=== PATIENT | male | born 1950 | race Caucasian/White ===

== ENCOUNTER 2017-11-01 22:37 | Inpatient (IN) | payer MEDICARE ==
[~2017-11-01] VITALS: Ht 175.3 cm; Wt 108.0 kg
[~2017-11-01 22:37] MED LIST: AMBIEN 5 MG TABL5 M1 PO; ATIVAN1 MG PO; HYDROCHLOROTH12.5 M1 PO; LEVAQUIN 250 M250 MG PO; PERCOCET PO; PREDNISONE 10 M10 MG PO; WELLBUTRIN 75 M75 M1 PO
[2017-11-01 22:39] VITALS: BP 174/100
[2017-11-01] MEDS ORDERED: ASPIR 8181 M1 PO (22:46)
[2017-11-01 22:58] LABS: ABSOLUTE BASOPHILS 0.1 thou/uL (0.0-0.2); ABSOLUTE EOSINOPHILS 0.2 thou/uL (0.0-0.7); ABSOLUTE LYMPHOCYTES 2.6 thou/uL (0.8-5.3); ABSOLUTE MONOCYTES 0.6 thou/uL (0.0-1.2); ABSOLUTE NEUTROPHILS 5.2 thou/uL (1.6-8.1); BASOPHILS 0.8 %; EOSINOPHILS 2.4 %; HEMOGLOBIN 10.5 gm/dL (14.0-18.0); LYMPHOCYTES 30.1 %; MCH 32.2 pg (26.0-34.0); MCV 94.8 fL (80.0-100.0); MONOCYTES 7.2 %; MPV 7.6 fl. (7.2-11.1); NUCLEATED RBCS 0 /100WBC; PLATELET COUNT* 257 thou/uL (150-400); POLYS 59.5 %; RBC 3.27 mil/uL (4.50-6.00); RDW-CV 12.5 % (10.5-14.5); WBC 8.7 thou/uL (4.0-11.0)
[2017-11-01 23:19] LABS: ALBUMIN 3.9 g/dL (3.4-5.0); ALKALINE PHOSPHATASE 111 U/L (46-116); ANION GAP 8 mmol/L (7-16); BUN 36 mg/dL (7-18); CALCIUM 8.7 mg/dL (8.5-10.1); CHLORIDE 99 mmol/L (98-107); CO2 29 mmol/L (21-32); CREATININE 2.7 mg/dL (0.6-1.3); GLUCOSE 121 mg/dL (70-99); LIPASE 376 U/L (73-393); NT-PRO BRAIN NAT PEPTIDE 700 pg/mL (<300); POTASSIUM 3.8 mmol/L (3.5-5.1); SGOT 36 U/L (15-37); SGPT 36 U/L (30-65); SODIUM 136 mmol/L (136-145); TOTAL BILIRUBIN 0.2 mg/dL (<0.1-1.0); TOTAL PROTEIN 7.4 g/dL (6.4-8.2); TROPONIN-I LEVEL <0.06 ng/mL (<0.06)
[2017-11-02 00:53] VITALS: BP 135/70
[2017-11-02 00:57] VITALS: BP 162/68
[2017-11-02 04:00] VITALS: BP 145/74
--- NOTE | 2017-11-02 06:45 | NUR ---
Pt arrived from ED at 0055. States CP resolved while in ED, now experiencing lower back pain which is chronic. VSS. On bed rest with BRP. Will continue to monitor.
[2017-11-02 09:00] VITALS: BP 170/73
[2017-11-02 12:02] VITALS: BP 145/74
--- NOTE | 2017-11-02 13:14 | EKG ---
[place] [address] ELECTROCARDIOGRAM REPORT Name: SALINA TRAN Room: [address] ADM IN .R.#: [id number] Admission: 11/01/17 Attend Phys: Ry Medina Discharge: Date of : 52 Report #: [id number] THIS REPORT FOR: //name// [facility] ED Test Date: 2017-11-01 Test Time: 22:40:10 Pat Name: SALINA JEANFORD Department: Room: [facility] Gender: M Lotus Notes Administrator: HAMZAH : 1950 Requested By: Casper Sesay Order Number: [id number] MD: Gomez Borrego Measurements Intervals [place] Rate: 87 P: 54 NC: 172 QRS: 25 QRSD: 92 T: 34 QT: 377 QTc: 454 Interpretive Statements Sinus rhythm Baseline wander in lead(s) V4 No previous ECG available for comparison Electronically Signed On 11-02-2017 13:14:38 MECHANICAL ENERGY ENGINEER by Gomez Borrego [email or web address] <ELECTRONICALLY SIGNED> By: Gomez Borrego MD, [facility] 11/02/17 1314 2240 39 Gomez Borrego MD, FACC /EPI
[2017-11-02] MEDS ORDERED: AMBIEN 5 MG TABL5 M1 PO (13:22)
--- NOTE | 2017-11-02 13:47 | NUR ---
CM ASSESSMENT: Pt is A&O. Resides at home alone. Independent with ADLs, continues to cook, clean and drive. No DME. Hx of [facility]. No hx of SNF. Supportive family that is involved in POC. Per nurse, Pt needs a stress test, pending cardiology consult. Anticipate dc soon. No needs anticipated.
--- NOTE | 2017-11-02 18:00 | NUR ---
HOME MEDICATION LIST UPDATED. DR CALLED WITH CHANGES. WELLBUTRIN CHANGED TO CORRECT DOSAGE, AMLODIPINE ORDERED. PT REPORTS HE TAKES 2 TABS OF OXY TO HELP WITH PAIN. OXYCODONE ADMININSTERED. ATIVAN ADMININSTERED PER EMAR. PT UP AD YANET. PT INSTRUCTED TO TELL RN ABOUT CHEST PAIN. PT DENIED CHEST PAIN. DURING ROUNDING PT REPORTED HE HAD HAD CHEST PAIN, AND REPORTS "I THINK IT WAS INDIGESTIONS". PT AGAIN INSTRUCTED TO NOTIFY RN OF CHEST PAIN. PT DID NOT REPORT ANY MORE CHEST PAIN THIS SHIFT. RECEIVED CALL FROM CARDIOLOGY THAT PT TO BE NPO AFTER MIDNIGHT FOR CARDIAC CATHETERIZATION. PT INSTRUCTED OF PLAN AND THAT DR WOULD DISCUSS PROCEDURE IN AM ( THIS IS WHAT CARDIOLOGY STATED).
[2017-11-02] MEDS ORDERED: AMLODIPINE BESY10 MG PO (18:08)
[2017-11-02] MEDS ORDERED: PRAVACHOL40 MG PO (18:09)
[2017-11-02 20:00] VITALS: BP 146/74
[2017-11-03] VITALS (17 sets, daily range): BP systolic 128–167; BP diastolic 55–87
--- NOTE | 2017-11-03 05:00 | NUR ---
ASSUMED CARE OF PATIENT AT 1900 THE PATIENT REMAINS SR ON THE MONITOR O2 SAT MAINTAINED ON 2L NC CONTINUES TO BE UP AD YANET THE ROUTINE REGIMEN CONTINUES TO BE EFFECTIVE FOR SX MANAGEMENT SAFETY INTERVENTIONS CONTINUE BED LOWERED WHEELS LOCKED CALL LIGHT IN REACH SIDE RAILS UP REPORT TO BE GIVEN TO ONCDELORES MLCEOD
[2017-11-03 05:58] LABS: ABSOLUTE EOSINOPHILS 0.2 thou/uL (0.0-0.7); ABSOLUTE LYMPHOCYTES 1.5 thou/uL (0.8-5.3); ABSOLUTE MONOCYTES 0.5 thou/uL (0.0-1.2); ABSOLUTE NEUTROPHILS 2.7 thou/uL (1.6-8.1); BASOPHILS 0.9 %; EOSINOPHILS 3.2 %; HEMATOCRIT 30.3 % (42.0-52.0); HEMOGLOBIN 10.4 gm/dL (14.0-18.0); LYMPHOCYTES 30.6 %; MCH 32.3 pg (26.0-34.0); MCHC 34.3 g/dL (28.0-37.0); MCV 94.1 fL (80.0-100.0); MONOCYTES 10.8 %; NUCLEATED RBCS 0 /100WBC; PLATELET COUNT* 231 thou/uL (150-400); POLYS 54.5 %; RBC 3.22 mil/uL (4.50-6.00); RDW-CV 12.5 % (10.5-14.5); WBC 4.9 thou/uL (4.0-11.0)
[2017-11-03 06:16] LABS: CALCIUM 9.3 mg/dL (8.5-10.1); CREATININE 2.3 mg/dL (0.6-1.3); POTASSIUM 5.1 mmol/L (3.5-5.1)
--- NOTE | 2017-11-03 08:50 | NUR ---
RECEIVED REPORT. ASSUMED CARE OF PT AT 0730. PT A&O X4, ANXIOUS ABOUT CATH PROCEDURE SCHEDULED FOR THIS AM. REASSURANCE GIVEN. VVS. O2 SAT 96% ON ROOM AIR. STRAINER MILL OPERATOR IN PLACE TRACING SR. PT INFORMED OF PLAN OF CARE. PT COMMUNICATES UNDERSTANDING. PT REPORTS THAT BACK PAIN IS "FEELING BETTER" SINCE ADMINISTRATION OF PAIN MEDICATION BY NIGHT NURSE AT SHIFT [facility]. PT NPO FOR CATH. PT UP WITH STANDBY ASSITANCE TO THE BATHROOM - VOIDING WITHOUT ISSUES. FAMILY AT BEDSIDE. LOW FALL RISK PRECAUTIONS ARE IN PLACE. CALL LIGHT IS WITHIN REACH. WILL CONTINUE TO MONITOR.
--- NOTE | 2017-11-03 10:35 | CARD ---
[address] [address] CARDIAC CATH REPORT Name: SALINA TRAN Room: [address] IN .R.#: [id number] Admission: 11/01/17 Attend Phys: Ry Medina Discharge: Date of : 52 Report #: [id number] THIS REPORT FOR: //name// APPROVED REPORT Patient Details Patient Status: In-Patient Room #: 225 The patient is a 67 year-old male Event Personnel Gomez Borrego Dump Operator, Simona Lester Production Machinist, Jillian Lim Monitor, Ady Nevarez (R) Scrub Procedures Performed cardiac cathArt Access - R radial artery , Left Heart Catheterization, Selective Right and Left Coronary Angiography Indication Cardiomyopathy, Chest pain Risk Factors Arterial Hypertension, Hypercholesterolemia Admission/Lab Medications/Medications given during procedure Heparin Unfract. Procedure Narrative The patient was brought electively to the Cardiac Catheterization Laboratory and was prepped and draped in a sterile manner. The right wrist was infiltrated with 1% Lidocaine subcutaneous anesthesia. A Slender Glidesheath 6fr sheath was inserted into the right radial artery. Coronary angiography was performed using coronary diagnostic catheters. The right coronary system was accessed and visualized with a Diagnostic catheter. The left coronary system was accessed and visualized with a Diagnostic catheter. The left ventricle was accessed and visualized with a Diagnostic catheter. Left ventricular/Aortic Valve gradient assessed via catheter pullback. Left ventriculogram was performed in PEREZ projection. Hemostasis was obtained with manual pressure following sheath removal without any complications. There was no hematoma. Intraoperative Conscious Sedation Sedation start time: 09:28 Case end Time: 09:50 [place] [address] CARDIAC CATH REPORT Name: SALINA TRAN Room: [address] IN [facility]#: [id number] Admission: 11/01/17 Attend Phys: Ry Medina Discharge: Date of : 52 Report #: [id number] Fentanyl 25 mcg Fluoro Time: 2.6 minutes Dose: DAP 67565 cGycm2 736.79 mGy Contrast Type and Amount: Visipaque 100 ml Coronary Angiography The patient's coronary anatomy is right dominant. [facility] Artery Percent Stenosis Left Main: 0 % Prox LAD: 0 % Mid/Distal LAD: 0 % Circumflex: 40 % RCA: 50 % Ramus: % Left Ventriculography The left ventricle is mildly dilated in size with contractility. The left ventricular ejection fraction is estimated to be 40-45%. There is no mitral insufficiency. Hemodynamics The aortic pressure is 114/65 mmHg with a mean of mmHg. The left ventricular pressure is 102/0 mmHg with a mean of mmHg. The left ventricular end diastolic pressure is 3 mmHg. There was no gradient across the aortic valve upon pullback. Pullback from the left ventricle to the aorta revealed no gradient across the aortic valve. Conclusion 1. mild cad 2. mild cardiomyopathy Recommendations Aggressive Medical Therapy <ELECTRONICALLY SIGNED> By: Gomez Borrego MD, FACC 11/03/17 1035 Dalottie Borrego MD, [facility] /INF
--- NOTE | 2017-11-03 19:59 | NUR ---
VSS. O2 SAT >90% ON ROOM AIR. PT REMAINS A&O X4. [facility] RIGHT RADIAL SITE FREE FROM BLEEDING. VASC BAND REMOVED PER PROTOCOL. VITALS POST CATH COMPLETED CHARTED. PT INSTRUCTED TO KEEP RIGHT ARM ELEVATED. IV PATENT AND INFUSING FLUIDS. PT REPORTED BACK PAIN THIS AFTERNOON AND RECEIVED PAIN MEDICATION WITH RELIEF. PT EATING AND DRINKING WITHOUT ISSUE. PT UP AD YANET TO THE BATHROOM. FAMILY WAS HERE THIS AM AND HAS SINCE GONE HOME. PT RESTING IN BED. NEPHROLOGY CONSULTED. LOW FALL RISK PRECAUTIONS IN PLACE. CALL LIGHT IS WITHIN REACH. HOURLY ROUNDING PERFORMED.
[2017-11-04] VITALS: BP 131/69
--- NOTE | 2017-11-04 03:05 | NUR ---
PT ALERT ORIENTED. UP AD YNAET. DENIES CP OR DISCOMFORT. TELEMETRY SHOWS SR. R RADIAL DRSG D/I. NS AT 200MLS/HR DONE APPROX 2200. LORAZEPAM GIVEN HS WITH HS MEDS. PAIN PILLS AND AMBIEN GIVEN SHORTLY AFTER 2300 PER PT REQUEST. PT RESTING QUIENTLY THIS SHIFT. WILL CONTINUE TO MONITOR.
[2017-11-04 04:00] VITALS: BP 148/59
[2017-11-04 05:44] LABS: CALCIUM 8.7 mg/dL (8.5-10.1); CREATININE 2.4 mg/dL (0.6-1.3); POTASSIUM 4.9 mmol/L (3.5-5.1)
[2017-11-04 08:00] VITALS: BP 167/75
--- NOTE | 2017-11-04 10:21 | CON ---
[address] [address] CONSULTATION Name: SALINA TRAN Room: [address] IN M.R.#: [id number] Admission: 11/01/17 Attend Phys: Ry Medina Discharge: Date of : 52 Report #: [id number] THIS REPORT FOR: //name// CC: Will England DATE OF SERVICE: 11/02/2017 HISTORY OF PRESENT ILLNESS: The patient is a 67-year-old single white male, who I was asked to see in the hospital after he complained of chest pain. The patient has no previous history of heart disease. He was last admitted here to [facility] in 11/2016 with respiratory illness. The patient stays fairly active. He was doing well until last night. He was at home about 2:00 at night, when felt an ache in his chest, some discomfort in his left upper arm, felt short of breath. Denied diaphoresis or nausea. He drove himself to the Emergency Room last night. He was given nitroglycerin, pain resolved. I was asked to see him for further evaluation and treatment. He denied the pain related to food. No recent trauma to his chest. Denied any rash. He denied associated nausea or diaphoresis. He denies exertional dyspnea, palpitations, syncope or peripheral edema. PAST MEDICAL HISTORY: Otherwise significant for ankle surgery, knee surgery, back surgery, hand surgery, hypertension, and hyperlipidemia. MEDICATIONS: Include Pravachol, Wellbutrin, amlodipine, and oxycodone. ALLERGIES: HE HAS INTOLERANCE TO CODEINE AND PENICILLIN. FAMILY HISTORY: His sister has a defibrillator. SOCIAL HISTORY: He is , lives by himself here in [place]. 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 Quit smoking years ago. No alcohol use. REVIEW OF SYSTEMS: He has had no history of stroke, asthma. He has had a peptic ulcer in the past. No liver disease. He has chronic kidney disease. No cancer. He does have a history of anxiety disorder and is followed by psychiatrist. No chronic skin condition. PHYSICAL EXAMINATION: GENERAL: Revealed an elderly male, who appeared in no distress. VITAL SIGNS: He had a blood pressure of 160/70, pulse 70, he is afebrile. HEENT: He is anicteric. Conjunctivae pink. Mucous membranes moist. NECK: Veins do not appear distended. Right carotid bruit was heard. CHEST: Clear to auscultation. CARDIOVASCULAR: Regular rate and rhythm. No significant murmur. ABDOMEN: Soft, [place] [address] CONSULTATION Name: SALINA TRAN Room: [address] IN M.R.#: [id number] Admission: 11/01/17 Attend Phys: Ry Medina Discharge: Date of : 52 Report #: [id number] EXTREMITIES: Had no edema. Posterior tibial pulse 2+ bilaterally. SKIN: Warm, dry. NEUROLOGIC: Nonfocal. DIAGNOSTIC DATA: His ECG on admission last night showed a sinus rhythm. There was no ST or T-wave change. His workup in the Emergency Room last night, he had a portable chest x-ray that showed normal heart size. Clear lung almanzar. CT scan of the head a year ago after a fall showed no acute abnormality. LABORATORY DATA: Sodium 136, creatinine 2.7. Liver function studies were normal. Troponins are 0.06. White blood cell count 8.7, hemoglobin 10.5. IMPRESSION AND RECOMMENDATIONS: 1. Chest pain. The patient has risk factors for coronary artery disease. Pain has some features of angina. No ECG changes. Recommend stress echocardiogram. 2. Hypertension. The patient has been on calcium alberto. 3. Hyperlipidemia. The patient is on a statin drug. 4. Chronic kidney disease. 5. Anxiety disorder. <ELECTRONICALLY SIGNED> By: Gomez Borrego MD, FACC 11/04/17 1021 1409 [id number] Borrego MD, FACC /nt
[2017-11-04 12:09] VITALS: BP 152/72
--- NOTE | 2017-11-04 14:00 | NUR ---
RECEIVED REPORT. ASSUMED CARE OF PT AT 0730. PT A&O X4. VSS. O2 SAT 98% ON ROOM AIR. 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 AM ASSESSMENT AND VITALS COMPLETED CHARTED. PT ANXIOUS AND READY TO GO HOME, BUT VERY PLEASANT. IV SALINE LOCKED. PT REPORTS LOWER BACK PAIN AND RECEIVED PO PAIN MEDICATION WITH RELIEF. PT EATING AND DRINKING WITHOUT ISSUE. PT UP AD YANET IN ROOM. PT SHOWERED AFTER LUNCH. PT COMPLETED RENAL U/S. PT SPOKE WITH FAMILY ON CELL PHONE THIS AM. PT INFORMED OF PLAN OF CARE. PT COMMUNICATES UNDERSTANDING. RIGHT RADIAL CATH SITE BANDAGE CAME OFF IN THE NIGHT; SITE IS CLOSED, WITH NO OOZING; NON TENDER. PT AWARE OF LIFTING RESTRICTIONS. LOW FALL RISK PRECAUTIONS IN PLACE. CALL LIGHT IS WITHIN REACH. WILL CONTINUE TO MONITOR.
--- NOTE | 2017-11-04 16:41 | NUR ---
PATIENT TRANSFERRED FROM . REPORTS BACK PAIN. PAIN MEDICATION ADMINISTERED. BP ELEVETAED AT 182/67. WILL REASSESS AFTER PATIENT SETTLED. DINNER PROVIDED. UP AD YANET. DENIES FURTHER CONCERNS.
[2017-11-04 17:53] VITALS: BP 162/74
[2017-11-04 21:05] VITALS: BP 141/68
[2017-11-05 04:00] VITALS: BP 132/57
[2017-11-05 05:09] LABS: CALCIUM 8.9 mg/dL (8.5-10.1); CREATININE 2.4 mg/dL (0.6-1.3); POTASSIUM 4.5 mmol/L (3.5-5.1)
--- NOTE | 2017-11-05 07:45 | NUR ---
PATIENT ALERT AND ORIENTED. VITALS STABLE. RA. PEROCET GIVEN FOR CHRONIC BACK PAIN X 1. UP INDEPENDENTLY. DENIES PAIN. HOURLY ROUNDS. NURSING WILL CONTINUE TO MONITOR.
[2017-11-05 08:15] VITALS: BP 135/61
[2017-11-05] MEDS ORDERED: FLOMAX0.4 MG PO (08:29)
[2017-11-05] MEDS ORDERED: CARVEDILOL3.125 MG PO (08:29)
[2017-11-05 13:08] LABS: IgA 142 mg/dL (61-437); IgG 541 mg/dL (700-1600); IgM 27 mg/dL (20-172)
[2017-11-05 13:54] VITALS: BP 147/86
[2017-11-05 13:58] VITALS: BP 147/86
--- NOTE | 2017-11-05 14:34 | NUR ---
PATIENT LEFT UNIT AT 1430. ALERT AND ORIENTED X4. UP AD YANET IN ROOM. IV DC'D. NO PAIN MEDICATION RECIEVED THIS SHIFT. DENIES NAUSEA. ALL PERSONAL ITEMS LEFT WITH PATIENT. DISCHARGE INSTRUCTIONS SENT WITH PATIENT. VSS ON ROOM AIR. HOURLY ROUNDS HAVE BEEN MAINTAINED THROUGOUT SHIFT. LEFT VIA CAR.
[2017-11-05 14:38] VITALS: BP 147/86
--- NOTE | 2017-11-06 14:19 | EXE ---
[place] [address] STRESS ECHOCARDIOGRAM Name: SALINA TRAN Room: [address] IN .R#: [id number] Admission: 11/01/17 Attend Phys: Ankita England Discharge: 11/05/17 Date of : 52 Date of Service: 11/06/17 141 Report #: [id number] THIS REPORT FOR: //name// ADDENDUM APPROVED REPORT Patient Location: Room #: Stress Nurse: Stress test not performed ,as this patient has new left ventricular dysfunction noted on limited echo testing prior to stress test. Conclusion 1. Findings compatible with ischemic cardiomyopathy EF 35-40 2. inferior hypo 3.moderate TR <ELECTRONICALLY SIGNED> By: Tip Cleaning MD, FACC 11/06/171418 18 18 Tip Cleaning MD, FACC /INF
[2017-11-06 15:10] LABS: KAPPA FREE LIGHT CHAINS 40.5 mg/L (3.3-19.4); LAMBDA FREE LIGHT CHAINS 22.1 mg/L (5.7-26.3)
--- NOTE | 2017-11-20 12:39 | CON ---
[address] [address] CONSULTATION Name: SALINA TRAN Room: [address] IN M.R.#: [id number] Admission: 11/01/17 Attend Phys: Ry Medina Discharge: 11/05/17 Date of : 52 Report #: [id number] THIS REPORT FOR: //name// CC: Will England DATE OF SERVICE: 11/04/2017 CONSULTING PHYSICIAN: Jaspreet Garcia MD REASON FOR CONSULTATION: Acute kidney injury and chronic kidney disease stage 3. ADMISSION DIAGNOSIS AND CHIEF COMPLAINT: Chest pain. HISTORY OF PRESENT ILLNESS: This is a 67-year-old male with past medical history of hypertension, chronic kidney disease stage 3 with baseline creatinine of 1.9 to 2 and other medical problems who came in with chest pain. The patient underwent a cardiac catheterization on 11/01/2017. Cardiac catheterization revealed mild CAD and aggressive medical measures were recommended. At home, the patient does take hydrochlorothiazide. He denies any kidney stones. He also complains of nocturia and poor urinary stream. He does follow with a granulator, has never followed with a urologist. He does not take any nonsteroidal anti-inflammatory drugs. His ejection fraction was found to be 35-40%. The patient's creatinine was 2.7 on the day of the cath and 2.3 yesterday and 2.4 today. He did receive some IV fluids. Currently, the patient is feeling good. REVIEW OF SYSTEMS: Ten-point reviews of systems done negative. PAST MEDICAL HISTORY: Include acute bronchitis, hypertension, history of urinary retention, anxiety and depression. PAST SURGICAL HISTORY: Includes back surgery and left knee surgery. SOCIAL HISTORY: Former smoker, no alcohol use, recreational drug use. FAMILY HISTORY: Noncontributory. HOME MEDICATIONS: Reviewed include bupropion, lorazepam, oxycodone, hydrochlorothiazide and aspirin. ALLERGIES: Reviewed. CURRENT INPATIENT MEDICATIONS: [place] [address] CONSULTATION Name: SALINA TRAN Room: [address]#: [id number] Admission: 11/01/17 Attend Phys: Ry Medina Discharge: 11/05/17 Date of : 52 Report #: [id number] PHYSICAL EXAMINATION: VITAL SIGNS: Blood pressure is 148/59, respiratory rate 16, pulse rate 69, temperature 36.3. GENERAL: He is awake, alert, oriented x 3, no acute distress. HEAD, EYES, EARS, NOSE AND THROAT: Mucous membranes are moist. NECK: No JVD. CHEST: Clear to auscultation bilaterally. No crackles or wheezing heard. CARDIOVASCULAR: S1, S2 normal. No murmurs. ABDOMEN: Soft, nondistended, nontender. Bowel sounds are present. EXTREMITIES: No lower extremity edema. NEUROLOGIC: is intact. PSYCHIATRIC: Mood and affect seems to be normal. LABORATORY DATA: Hemoglobin was 10.4 yesterday and November 04, creatinine was 2.4, potassium 4.9 and other labs are reviewed. IMAGING: Chest x-ray was reviewed. ASSESSMENT: 1. Acute kidney injury on chronic kidney disease stage 3. 2. Hypertension. 3. Coronary artery disease, chronic systolic congestive heart failure with ejection fraction of 35-40%. 4. Chest pain. PLAN: 1. Acute kidney injury on chronic kidney disease stage 3, likely because of IV contrast exposure and mild dehydration. The patient likely has acute renal failure on top of his CKD, likely because of mild dehydration and IV contrast exposure. We will hold hydrochlorothiazide for now. The patient is also complaining of poor urinary stream. We will start him on Flomax. We will check renal ultrasound with PVR. We will also check serum immunofixation, serum kappa/lambda light chain ratio. If his creatinine is stable tomorrow, he can follow with his outpatient granulator. Thank you for this consultation and we will continue to follow along. <ELECTRONICALLY SIGNED> By: Deanne Mccollum MD 11/20/17 1239 0755 [id number] Mccollum MD /nt
== END 2017-11-05 14:30 | disposition home or self-care (01) | DRG 286 ==
LOC: M.ERS 22:37 → M.TBA-ER 23:29 → M.2W 23:29 → M.ORTHSURG 11-04 15:48
PROVIDERS: Emergency Medicine Emergency Medical Services; Internal Medicine; ADMIT Internal Medicine
DX: I13.0 Hypertensive heart and chronic kidney disease with heart failure and stage 1 through stage 4 chronic kidney disease, or unspecified chronic kidney disease (principal); I50.43 Acute on chronic combined systolic (congestive) and diastolic (congestive) heart failure; N17.9 Acute kidney failure, unspecified; F32.9 Major depressive disorder, single episode, unspecified; G89.29 Other chronic pain; E78.5 Hyperlipidemia, unspecified; M54.9 Dorsalgia, unspecified; F41.9 Anxiety disorder, unspecified; N18.3 Chronic kidney disease, stage 3 (moderate); I25.5 Ischemic cardiomyopathy; I25.10 Atherosclerotic heart disease of native coronary artery without angina pectoris; M19.90 Unspecified osteoarthritis, unspecified site; Z79.899 Other long term (current) drug therapy; Z79.82 Long term (current) use of aspirin; Z88.6 Allergy status to analgesic agent; Z88.0 Allergy status to penicillin; Z87.891 Personal history of nicotine dependence

== ENCOUNTER → 2018-01-10 | Outpatient (CLI) | payer MEDICARE ==
[~2018-01-10] MED LIST changes: +AMLODIPINE BESY10 MG PO; +ASPIR 8181 M1 PO; +CARVEDILOL3.125 MG PO; +FLOMAX0.4 MG PO; +PRAVACHOL40 MG PO
== END ==
LOC: M.NUC 01-09 10:54
DX: R22.41 Localized swelling, mass and lump, right lower limb (principal)

== ENCOUNTER → 2018-04-16 | Outpatient (CLI) | payer MEDICARE ==
[2018-04-16 11:17] LABS: ABSOLUTE BASOPHILS 0.1 thou/uL (0.0-0.2); ABSOLUTE EOSINOPHILS 0.3 thou/uL (0.0-0.7); ABSOLUTE LYMPHOCYTES 1.2 thou/uL (0.8-5.3); ABSOLUTE MONOCYTES 0.4 thou/uL (0.0-1.2); ABSOLUTE NEUTROPHILS 4.2 thou/uL (1.6-8.1); EOSINOPHILS 5.1 %; HEMATOCRIT 27.6 % (42.0-52.0); HEMOGLOBIN 9.6 gm/dL (14.0-18.0); LYMPHOCYTES 19.8 %; MCH 33.3 pg (26.0-34.0); MCHC 34.9 g/dL (28.0-37.0); MCV 95.3 fL (80.0-100.0); MONOCYTES 7.2 %; MPV 7.6 fl. (7.2-11.1); NUCLEATED RBCS 0 /100WBC; PLATELET COUNT* 258 thou/uL (150-400); POLYS 66.9 %; RBC 2.89 mil/uL (4.50-6.00); RDW-CV 11.8 % (10.5-14.5); WBC 6.2 thou/uL (4.0-11.0)
[2018-04-16 11:25] LABS: CALCIUM 8.8 mg/dL (8.5-10.1); CREATININE 2.9 mg/dL (0.6-1.3)
[2018-04-19 12:04] LABS: GLOBULIN TOTAL 2.6 g/dL (2.2-3.9); M-SPIKE 0.1 g/dL (Not Observed)
== END ==
LOC: M.LAB 10:54
PROVIDERS: Internal Medicine Gastroenterology
DX: D64.9 Anemia, unspecified (principal)

== ENCOUNTER → 2018-05-23 | Outpatient (CLI) | payer MEDICARE | LOC: M.MRI 05-22 11:54 → M.CT 09:53 | DX: M77.02 Medial epicondylitis, left elbow (principal); I12.9 Hypertensive chronic kidney disease with stage 1 through stage 4 chronic kidney disease, or unspecified chronic kidney disease; N18.3 Chronic kidney disease, stage 3 (moderate) ==

== ENCOUNTER → 2018-06-18 | Outpatient (CLI) | payer MEDICARE | LOC: M.MRI 06-11 17:30 | DX: M65.222 Calcific tendinitis, left upper arm (principal) ==

== ENCOUNTER → 2018-07-24 | Outpatient (CLI) | payer MEDICARE ==
[2018-07-24 09:26] LABS: HEMATOCRIT 26.9 % (42.0-52.0)
[2018-07-24 09:37] LABS: ALBUMIN 3.6 g/dL (3.4-5.0); CALCIUM 8.6 mg/dL (8.5-10.1); CREATININE 2.9 mg/dL (0.6-1.3); POTASSIUM 5.6 mmol/L (3.5-5.1); TOTAL BILIRUBIN 0.1 mg/dL (<0.1-1.0); TOTAL PROTEIN 6.7 g/dL (6.4-8.2)
[2018-07-25 16:34] LABS: eGFR IF AFRICAN AMERICAN 25 (>59)
[2018-07-25 16:45] LABS: PARATHYROID HORMONE 142 pg/mL (15-65)
== END ==
LOC: M.LAB 09:03
PROVIDERS: Nurse Practitioner Family
DX: I12.9 Hypertensive chronic kidney disease with stage 1 through stage 4 chronic kidney disease, or unspecified chronic kidney disease (principal); N18.3 Chronic kidney disease, stage 3 (moderate); F33.9 Major depressive disorder, recurrent, unspecified; G89.29 Other chronic pain

== ENCOUNTER → 2018-07-30 | Outpatient (CLI) | payer MEDICARE ==
[2018-07-30 15:03] LABS: HEMATOCRIT 25.2 % (42.0-52.0); HEMOGLOBIN 8.5 gm/dL (14.0-18.0); MCH 32.6 pg (26.0-34.0); MCHC 33.5 g/dL (28.0-37.0); MCV 97.3 fL (80.0-100.0); MPV 7.9 fl. (7.2-11.1); RBC 2.59 mil/uL (4.50-6.00); RDW-CV 12.1 % (10.5-14.5); WBC 6.9 thou/uL (4.0-11.0)
[2018-07-30 15:46] LABS: CALCIUM 8.4 mg/dL (8.5-10.1); CREATININE 3.3 mg/dL (0.6-1.3); POTASSIUM 5.4 mmol/L (3.5-5.1)
== END ==
LOC: M.LAB 14:47
PROVIDERS: Nurse Practitioner
DX: I42.0 Dilated cardiomyopathy (principal); N18.9 Chronic kidney disease, unspecified

== ENCOUNTER → 2018-08-12 | Outpatient (CLI) | payer MEDICARE ==
[2018-08-12 11:04] LABS: HEMATOCRIT 27.3 % (42.0-52.0); HEMOGLOBIN 9.3 gm/dL (14.0-18.0)
[2018-08-12 11:35] LABS: ALBUMIN 3.7 g/dL (3.4-5.0); CALCIUM 9.1 mg/dL (8.5-10.1); CREATININE 3.6 mg/dL (0.6-1.3); PHOSPHORUS* 5.4 mg/dL (2.5-4.9); POTASSIUM 5.7 mmol/L (3.5-5.1); TOTAL BILIRUBIN 0.2 mg/dL (<0.1-1.0); TOTAL PROTEIN 7.1 g/dL (6.4-8.2)
[2018-08-12 11:43] LABS: % SATURATION 19 % (20-39); IRON 54 ug/dL (50-175)
--- NOTE | 2018-08-12 16:16 | 2DMMODE ---
[place] [address] 2 D/M-MODE ECHOCARDIOGRAM Name: SALINA TRAN [facility] [id number] Admission: 08/12/18 Attend Phys: Alma Aquino, Discharge: Date of : 52 Date of Service: 08/12/18 1616 Report #: [id number] THIS REPORT FOR: //name// APPROVED REPORT Study performed: 08/12/2018 10:06:44 EXAM: Limited 2D Echocardiogram Patient Location: Out-Patient BSA: 2.18 HR: 64 bpm BP: 132/57 mmHg Other Information Study Quality: Good Indications Cardiomyopathy 2D Dimensions IVSd: 11.61 (7-11mm) LVOT Diam: 21.04 (18-24mm) LVDd: 67.24 mm PWd: 11.48 (7-11mm) Ascending Ao: 31.55 (22-36mm) LVDs: 51.97 (25-40mm) Aortic Root: 25.87 mm Volumes Left Atrial Volume (Systole) LA ESV Index: 28.10 mL/m2 Aortic Valve AoV Peak Abdifatah.: 1.06 m/s AO Peak Gr.: 4.47 mmHg LVOT Max P.30 mmHg AO Mean Gr.: 2.60 mmHg LVOT Mean P.49 mmHg LVOT Max V: 0.91 m/s AO V2 VTI: 22.89 cm LVOT Mean V: 0.55 m/s AUGUSTIN (VTI): 2.97 cm2 LVOT V1 VTI: 19.52 cm Mitral Valve E/A Ratio: 0.65 MV Decel. Time: 298.36 ms MV E Max Abdifatah.: 0.44 m/s MV PHT: 86.52 ms MVA (PHT): 2.54 cm2 [place] [address] 2 D/M-MODE ECHOCARDIOGRAM Name: SALINA TRAN [facility] [id number] Admission: 08/12/18 Attend Phys: Alma Aquino, Discharge: Date of : 52 Date of Service: 08/12/18 1616 Report #: [id number] TDI E/Lateral E': 6.29 E/Medial E': 7.33 Medial E' Abdifatah.: 0.06 m/s Lateral E' Abdifatah.: 0.07 m/s Pulmonary Valve PV Peak Abdifatah.: 0.79 m/s PV Peak Gr.: 2.51 mmHg Left Ventricle Left ventricle is mildly dilated. There is diffuse hypokinesis of LV wall motion. There is normal left ventricular wall thickness. Left ventricular systolic function is moderate to severely decreased. LVEF is 25-30%. Grade I - abnormal relaxation pattern. Right Ventricle The right ventricle is normal size. The right ventricular systolic function is normal. Atria Left atrium is mildly dilated. The right atrium size is normal. Aortic Valve Mild aortic valve sclerosis. Mild aortic regurgitation. There is no aortic valvular stenosis. Mitral Valve The mitral valve is normal in structure. Mild to moderate mitral regurgitation. No evidence of mitral valve stenosis. Tricuspid Valve The tricuspid valve is normal in structure. There is no tricuspid valve regurgitation noted. Pulmonic Valve The pulmonary valve is normal in structure. Mild pulmonic regurgitation. Great Vessels The aortic root is normal in size. IVC is normal in size and collapses >50% with inspiration. Pericardium There is no pericardial effusion. <Conclusion> [place] [address] 2 D/M-MODE ECHOCARDIOGRAM Name: SALINA TRAN [id number] Admission: 08/12/18 Attend Phys: Alma Aquino, Discharge: Date of : 52 Date of Service: 08/12/18 1616 Report #: [id number] Left ventricle is mildly dilated. There is normal left ventricular wall thickness. Left ventricular systolic function is moderate to severely decreased. LVEF is 25-30%. Grade I - abnormal relaxation pattern. The right ventricle is normal size. Left atrium is mildly dilated. Mild aortic valve sclerosis. Mild aortic regurgitation. There is no aortic valvular stenosis. The mitral valve is normal in structure. Mild to moderate mitral regurgitation. The tricuspid valve is normal in structure. IVC is normal in size and collapses >50% with inspiration. There is no pericardial effusion. There is diffuse hypokinesis of LV wall motion. <ELECTRONICALLY SIGNED> By: Danny Leary MD, FACC 08/12/18 [phone] Danny Leary MD, FACC /INF
[2018-08-12 19:07] LABS: eGFR IF AFRICAN AMERICAN 21 (>59)
[2018-08-13 15:10] LABS: PARATHYROID HORMONE 105 pg/mL (15-65)
== END ==
LOC: M.CRD 09:51 → M.INFUS 09:51 → M.CRD 10:00
PROVIDERS: Nurse Practitioner
DX: N18.4 Chronic kidney disease, stage 4 (severe) (principal); D63.1 Anemia in chronic kidney disease; I42.0 Dilated cardiomyopathy

== ENCOUNTER → 2018-08-26 | Outpatient (CLI) | payer MEDICARE ==
[2018-08-26 09:20] VITALS: BP 132/70
--- NOTE | 2018-08-26 09:35 | NUR ---
ARRIVED AMBULATORY, MADE SELF COMFORTABLE IN RECLINER. DENIES ADVERSE REACTION TO PRIOT INJECTION OF SAME. INJECTION OF 10,000 UNITS PROCRIT COMPLETED AND TOLERATED WELL. DENIES QUESTIONS OR NEEDS AT DISCHARGE.
== END ==
LOC: M.INFUS 05:51
DX: N18.4 Chronic kidney disease, stage 4 (severe) (principal); D63.1 Anemia in chronic kidney disease

== ENCOUNTER → 2018-09-23 | Outpatient (CLI) | payer MEDICARE ==
[2018-09-23 07:40] VITALS: BP 134/63
== END ==
LOC: M.INFUS 07:21
DX: N18.4 Chronic kidney disease, stage 4 (severe) (principal); D63.1 Anemia in chronic kidney disease

== ENCOUNTER → 2018-10-07 | Outpatient (CLI) | payer MEDICARE ==
[2018-10-07 10:31] VITALS: BP 128/61
--- NOTE | 2018-10-07 10:46 | NUR ---
NO LABS DUE. SAME DOSE LAST GIVEN 12,500. TOLERATED WELL. DENEIS ADVERSE REACTION TO MULTIPLE INJECTIONS OF SAME.
== END ==
LOC: M.INFUS 10:00
DX: N18.4 Chronic kidney disease, stage 4 (severe) (principal); D63.1 Anemia in chronic kidney disease

== ENCOUNTER → 2018-10-21 | Outpatient (CLI) | payer MEDICARE ==
--- NOTE | 2018-10-21 14:33 | NUR ---
WHILE WATING ON LAB RESULTS PT REPORT NOT FEELING WELL. REQUESTED TO LEAVE AND COME BACK TOMORROW FOR INJECTION. PT LEFT AREA DENIES NEEDS
== END ==
LOC: M.INFUS 04:33
DX: N18.4 Chronic kidney disease, stage 4 (severe) (principal); D63.1 Anemia in chronic kidney disease

== ENCOUNTER → 2018-11-04 | Outpatient (CLI) | payer MEDICARE ==
[2018-11-04 08:55] VITALS: BP 113/51
--- NOTE | 2018-11-04 14:04 | NUR ---
ARRIVED AMBULATORY. HAD LAB DRAWN 10/28/18 PER THOSE RESULTS HGB 9.1 AND WE ARE TO CONTINUE SAME DOSE OF PROCRIT 12,500 UNITS. INJECTION COMPLETED AND TOLERATED WELL. DENEIS NEEDS AT DISCHARGE.
== END ==
LOC: M.INFUS 01:09
DX: N18.4 Chronic kidney disease, stage 4 (severe) (principal); D63.1 Anemia in chronic kidney disease

== ENCOUNTER → 2018-11-18 | Outpatient (CLI) | payer MEDICARE ==
[~2018-11-18] MED LIST changes: +COREG25 M1; +HYDRALAZINE 2525 MG; +HYDROXYZINE HCL25 M1 PO; +IMDUR 60 MG TAB60 M1; +LAMOTRIGINE150 MG PO; +LASIX 40 MG TAB40 M2; +LEVAQUIN 750 M750 MG PO; +LIPITOR80 MG PO; +ROCALTROL0.25 MCG PO; +VITAMIN D1000 UNI2 PO; -WELLBUTRIN 75 M75 M1 PO; +WELLBUTRIN SR100 MG PO
[2018-11-18 08:08] VITALS: BP 129/56
--- NOTE | 2018-11-18 08:20 | NUR ---
ARRIVED AMBULATORY. LABS NOTED FROM 10/28 AND PT TO CONTINUE SAME DOSE LAST GIVEN. DENEIS ADVERSE REACTION TO MULTIPLE PRIOR INJECTIONS OF SAME. INJECTION COMPLETED AND TOLERATED WELL. 12,500 UNITS. DENEIS QUESTIONS OR NEEDS AT DISCHARGE.
== END ==
LOC: M.INFUS 01:16
DX: N18.4 Chronic kidney disease, stage 4 (severe) (principal)

== ENCOUNTER → 2018-12-02 | Outpatient (CLI) | payer MEDICARE ==
[~2018-12-02] MED LIST changes: +HYDROXYZINE HCL25 M1; -HYDROXYZINE HCL25 M1 PO; +ROCALTROL0.25 MCG; -ROCALTROL0.25 MCG PO; -VITAMIN D1000 UNI2 PO; +WELLBUTRIN 75 M75 M1 PO; -WELLBUTRIN SR100 MG PO
--- NOTE | 2018-12-02 12:07 | NUR ---
ARRIVED AMBULATORY. MADE SELF COMFORTABLE IN RECLINER. LABS DRAWN DURING HOSPITAL STAY ON 11/21/18 EVALUATED AND INJECTION CONTINUES AT SAME DOSE. INJECTION COMPLETED AND TOERLATED WELL. DENEIS QUESTION OR NEEDS AT DISCHARGE.
== END ==
LOC: M.INFUS 00:57
DX: N18.4 Chronic kidney disease, stage 4 (severe) (principal); D63.1 Anemia in chronic kidney disease

== ENCOUNTER 2018-12-11 12:21 | Emergency (ER) | payer MEDICARE ==
[~2018-12-11] VITALS: Ht 170.2 cm; Wt 104.8 kg
[~2018-12-11 12:21] MED LIST changes: -LIPITOR80 MG PO
[2018-12-11] MEDS ORDERED: LIPITOR80 MG PO (12:33)
[2018-12-11 13:19] LABS: ABSOLUTE EOSINOPHILS 0.1 thou/uL (0.0-0.7); ABSOLUTE LYMPHOCYTES 0.9 thou/uL (0.8-5.3); ABSOLUTE MONOCYTES 0.7 thou/uL (0.0-1.2); ABSOLUTE NEUTROPHILS 2.3 thou/uL (1.6-8.1); BASOPHILS 0.7 %; EOSINOPHILS 2.4 %; HEMATOCRIT 24.7 % (42.0-52.0); HEMOGLOBIN 8.2 gm/dL (14.0-18.0); LYMPHOCYTES 22.4 %; MCH 31.7 pg (26.0-34.0); MCHC 33.2 g/dL (28.0-37.0); MCV 95.3 fL (80.0-100.0); MONOCYTES 17.1 %; MPV 7.8 fl. (7.2-11.1); NUCLEATED RBCS 0 /100WBC; PLATELET COUNT* 186 thou/uL (150-400); POLYS 57.4 %; RBC 2.59 mil/uL (4.50-6.00)
[2018-12-11 13:28] LABS: APTT 29.8 Seconds (25.0-31.3); PROTIME 9.8 Seconds (9.20-11.50)
[2018-12-11 13:36] LABS: ANION GAP 10 mmol/L (7-16); BUN 62 mg/dL (7-18); CALCIUM 8.1 mg/dL (8.5-10.1); CHLORIDE 105 mmol/L (98-107); CO2 22 mmol/L (21-32); GLUCOSE 94 mg/dL (70-99); POTASSIUM 5.4 mmol/L (3.5-5.1); SODIUM 137 mmol/L (136-145); TROPONIN-I LEVEL <0.06 ng/mL (<0.06)
[2018-12-11 13:45] LABS: ALBUMIN 3.3 g/dL (3.4-5.0); ALKALINE PHOSPHATASE 93 U/L (46-116); NT-PRO BRAIN NAT PEPTIDE 9329 pg/mL (<300); SGOT 19 U/L (15-37); SGPT 22 U/L (30-65); TOTAL BILIRUBIN 0.2 mg/dL (<0.1-1.0); TOTAL PROTEIN 6.7 g/dL (6.4-8.2)
[2018-12-11 13:57] VITALS: BP 172/86
--- NOTE | 2018-12-11 15:17 | EKG ---
[place] [address] ELECTROCARDIOGRAM REPORT Name: SALINA TRAN [id number] Admission: 12/11/18 Attend Phys: Discharge: 12/11/18 Date of : 52 Report #: [id number] THIS REPORT FOR: //name// [facility] ED Test Date: 2018-12-11 Test Time: 12:48:26 Pat Name: SALINA TRAN Department: Room: Gender: M Preparation Supervisor: : 1950 Requested By: Matt Lance Order Number: [id number] MD: Gomez Borrego Measurements Intervals [place] Rate: 58 P: 45 [place]: 172 QRS: 12 QRSD: 94 T: 76 QT: 438 QTc: 431 Interpretive Statements Sinus rhythm Abnormal R-wave progression, early transition Probable LVH with secondary repol abnrm Compared to ECG 11/18/2018 19:42:37 No significant changes Electronically Signed On 12-11-2018 15:17:19 CDT by Gomez Borrego [email or web address] <ELECTRONICALLY SIGNED> By: Gomez Borrego MD, [facility] 12/11/18 1517 1248 1248 Gomez Borrego MD, [facility] /EPI
== END 2018-12-11 13:57 | disposition home or self-care (01) ==
LOC: M.ERS 12:21
PROVIDERS: Family Medicine
DX: I12.9 Hypertensive chronic kidney disease with stage 1 through stage 4 chronic kidney disease, or unspecified chronic kidney disease (principal); N18.4 Chronic kidney disease, stage 4 (severe); F32.9 Major depressive disorder, single episode, unspecified; G89.29 Other chronic pain; M54.9 Dorsalgia, unspecified; Z86.2 Personal history of diseases of the blood and blood-forming organs and certain disorders involving the immune mechanism; Z88.0 Allergy status to penicillin; Z88.5 Allergy status to narcotic agent

== ENCOUNTER → 2018-12-16 | Outpatient (CLI) | payer MEDICARE ==
[~2018-12-16] MED LIST changes: +LIPITOR80 MG PO
[2018-12-16 10:57] VITALS: BP 147/73
--- NOTE | 2018-12-16 11:20 | NUR ---
ARRIVED AMBULATORY. HGB NOTED TO BE 8.2 ON 12/11/18 DRAWN IN THE ED. PER RESULTS DOSE INCREASED BY 25% TO 15,625 UNITS. INJECTION COMPLETED AND TOLERATED WELL. DENIES QUESTIONS OR NEEDS AT DISCHARGE.
== END ==
LOC: M.INFUS 04:39
DX: N18.4 Chronic kidney disease, stage 4 (severe) (principal); D63.1 Anemia in chronic kidney disease

== ENCOUNTER → 2018-12-20 | Outpatient (CLI) | payer MEDICARE ==
[2018-12-20 12:44] LABS: HEMATOCRIT 28.5 % (42.0-52.0); HEMOGLOBIN 9.3 gm/dL (14.0-18.0)
[2018-12-20 13:15] LABS: % SATURATION 17 % (20-39); IRON 49 ug/dL (50-175)
[2018-12-20 13:37] LABS: ALBUMIN 3.5 g/dL (3.4-5.0); CALCIUM 8.8 mg/dL (8.5-10.1); CREATININE 3.6 mg/dL (0.6-1.3); PHOSPHORUS* 4.6 mg/dL (2.5-4.9); POTASSIUM 5.5 mmol/L (3.5-5.1); TOTAL BILIRUBIN 0.2 mg/dL (<0.1-1.0); TOTAL PROTEIN 6.9 g/dL (6.4-8.2)
[2018-12-20 13:45] LABS: CREATININE 3.6 mg/dL (0.6-1.3); PHOSPHORUS* 4.9 mg/dL (2.5-4.9)
== END ==
LOC: M.LAB 11:48
PROVIDERS: Nurse Practitioner Family
DX: I12.9 Hypertensive chronic kidney disease with stage 1 through stage 4 chronic kidney disease, or unspecified chronic kidney disease (principal); N18.4 Chronic kidney disease, stage 4 (severe); Z87.891 Personal history of nicotine dependence

== ENCOUNTER → 2018-12-30 | Outpatient (CLI) | payer MEDICARE ==
[2018-12-30 13:28] VITALS: BP 180/89
--- NOTE | 2018-12-30 13:31 | 2DMMODE ---
[place] [address] 2 D/M-MODE ECHOCARDIOGRAM Name: SALINA TRAN Room: [facility]#: [id number] Admission: 12/30/18 Attend Phys: Tip Cleaning, Discharge: Date of : 52 Date of Service: 12/30/18 1331 Report #: [id number] THIS REPORT FOR: //name// APPROVED REPORT Study performed: 12/30/2018 09:11:40 EXAM: Comprehensive 2D, Doppler, and color-flow Echocardiogram Patient Location: Out-Patient BSA: 2.16 HR: 60 bpm BP: 138/68 mmHg Other Information Study Quality: Fair Indications Cardiomyopathy 2D Dimensions IVSd: 11.76 (7-11mm) LVOT Diam: 21.83 (18-24mm) LVDd: 53.54 mm PWd: 11.40 (7-11mm) Ascending Ao: 32.67 (22-36mm) LVDs: 41.79 (25-40mm) Aortic Root: 41.19 mm Volumes Left Atrial Volume (Systole) LA ESV Index: 61.20 mL/m2 Aortic Valve AoV Peak Abdifatah.: 1.09 m/s AO Peak Gr.: 4.71 mmHg LVOT Max P.91 mmHg AO Mean Gr.: 2.78 mmHg LVOT Mean P.35 mmHg LVOT Max V: 0.85 m/s AO V2 VTI: 24.41 cm LVOT Mean V: 0.53 m/s AUGUSTIN (VTI): 2.89 cm2 LVOT V1 VTI: 18.83 cm AI [place]: 1.28 m/s2 AI PHT: 1040.62 ms Mitral Valve E/A Ratio: 0.84 MV Decel. Time: 327.37 ms MV E Max Abdifatah.: 0.53 m/[place] [address] 2 D/M-MODE ECHOCARDIOGRAM Name: SALINA TRAN Room: [facility]#: [id number] Admission: 12/30/18 Attend Phys: Tip Cleaning, Discharge: Date of : 52 Date of Service: 12/30/18 1331 Report #: [id number] MV PHT: 94.94 ms MVA (PHT): 2.32 cm2 TDI E/Lateral E': 13.25 E/Medial E': 10.60 Medial E' Abdifatah.: 0.05 m/s Lateral E' Abdifatah.: 0.04 m/s Pulmonary Valve PV Peak Abdifatah.: 0.91 m/s PV Peak Gr.: 3.33 mmHg Left Ventricle Left ventricle is mildly dilated. There is normal left ventricular wall thickness. Left ventricular systolic function is moderately decreased. LVEF is 35%. Grade I - abnormal relaxation pattern. Right Ventricle The right ventricle is normal size. The right ventricular systolic function is normal. Atria Left atrium is moderately dilated. Right atrium is mildly dilated. Aortic Valve The Aortic valve is mildly sclerotic. Trace aortic regurgitation. There is no aortic valvular stenosis. Mitral Valve There is mitral annular calcification. Mild to moderate mitral regurgitation. No evidence of mitral valve stenosis. Tricuspid Valve The tricuspid valve is normal in structure. There is no tricuspid valve regurgitation noted. Pulmonic Valve The pulmonary valve is normal in structure. Mild pulmonic regurgitation. Great Vessels Aortic root is mildly dilated. IVC is normal in size and collapses >50% with inspiration. Pericardium There [place] [address] 2 D/M-MODE ECHOCARDIOGRAM Name: SALINA TRAN Room: [facility] Man#: [id number] Admission: 12/30/18 Attend Phys: Tip Cleaning, Discharge: Date of : 52 Date of Service: 12/30/18 1331 Report #: [id number] <Conclusion> Left ventricle is mildly dilated. There is normal left ventricular wall thickness. Left ventricular systolic function is moderately decreased. LVEF is 35%. Grade I - abnormal relaxation pattern. The right ventricle is normal size. Left atrium is moderately dilated. The Aortic valve is mildly sclerotic. Trace aortic regurgitation. There is no aortic valvular stenosis. There is mitral annular calcification. Mild to moderate mitral regurgitation. No evidence of mitral valve stenosis. The tricuspid valve is normal in structure. IVC is normal in size and collapses >50% with inspiration. There is no pericardial effusion. <ELECTRONICALLY SIGNED> By: Danny Leary MD, FACC 12/30/18 1331 1331 133 Danny Leary MD, FACC /INF
--- NOTE | 2018-12-30 13:42 | NUR ---
Pt ambulated into department for injection of Procrit. HGB on 12/11/18 was 8.2 and dose was increased to 15,625. This was divided into 2 doses and one shot given in back of upper right arm and one shot given SQ in back of upper left arm. Pt tolerated injections well. Ambulated out for discharge at 1342.
== END ==
LOC: M.CRD 01:00
DX: N18.4 Chronic kidney disease, stage 4 (severe) (principal); D63.1 Anemia in chronic kidney disease; I42.9 Cardiomyopathy, unspecified

== ENCOUNTER → 2019-01-13 | Outpatient (CLI) | payer MEDICARE ==
[~2019-01-13] MED LIST changes: +BENADRYL25 MG PO; +COLACE100 MG PO; +DULCOLAX5 MG PO; +ELIQUIS2.5 MG PO; -HYDRALAZINE 2525 MG; +HYDRALAZINE 2525 MG PO; -HYDROXYZINE HCL25 M1; +HYDROXYZINE HCL25 M1 PO; -IMDUR 60 MG TAB60 M1; +IMDUR 60 MG TAB60 M1 PO; -LASIX 40 MG TAB40 M2; +LASIX 40 MG TAB40 M2 PO; +LIDOCAINE PAIN1 EACH TRANSDERM; +MELATONIN10 M2 PO; +OXYCODONE HCL 55 MG PO; -ROCALTROL0.25 MCG; +ROCALTROL0.25 MCG PO; +VITAMIN D1000 UNI2 PO; -WELLBUTRIN 75 M75 M1 PO; +WELLBUTRIN SR100 MG PO
== END ==
LOC: M.INFUS 02:57
DX: N18.4 Chronic kidney disease, stage 4 (severe) (principal); D63.1 Anemia in chronic kidney disease

== ENCOUNTER → 2019-01-23 | Outpatient (CLI) | payer MEDICARE ==
[~2019-01-23] MED LIST changes: -BENADRYL25 MG PO; -COLACE100 MG PO; -DULCOLAX5 MG PO; -ELIQUIS2.5 MG PO; +HYDRALAZINE 2525 MG; -HYDRALAZINE 2525 MG PO; +IMDUR 60 MG TAB60 M1; -IMDUR 60 MG TAB60 M1 PO; +LASIX 40 MG TAB40 M2; -LASIX 40 MG TAB40 M2 PO; -LIDOCAINE PAIN1 EACH TRANSDERM; -MELATONIN10 M2 PO; -OXYCODONE HCL 55 MG PO
[2019-01-24 14:09] LABS: HEPATITIS B SURFACE AG Negative (Negative)
== END ==
LOC: M.LAB 06:09
PROVIDERS: Nurse Practitioner Family
DX: Z01.89 Encounter for other specified special examinations (principal); Z11.59 Encounter for screening for other viral diseases; I12.0 Hypertensive chronic kidney disease with stage 5 chronic kidney disease or end stage renal disease; N18.6 End stage renal disease; D63.1 Anemia in chronic kidney disease; Z79.899 Other long term (current) drug therapy

== ENCOUNTER → 2019-01-27 | Outpatient (CLI) | payer MEDICARE ==
[~2019-01-27] MED LIST changes: +BENADRYL25 MG PO; +COLACE100 MG PO; +DULCOLAX5 MG PO; +ELIQUIS2.5 MG PO; -HYDRALAZINE 2525 MG; +HYDRALAZINE 2525 MG PO; -IMDUR 60 MG TAB60 M1; +IMDUR 60 MG TAB60 M1 PO; -LASIX 40 MG TAB40 M2; +LASIX 40 MG TAB40 M2 PO; +LIDOCAINE PAIN1 EACH TRANSDERM; +MELATONIN10 M2 PO; +OXYCODONE HCL 55 MG PO
[2019-01-27 10:30] VITALS: BP 123/59
== END ==
LOC: M.INFUS 01:16
DX: N18.4 Chronic kidney disease, stage 4 (severe) (principal); D63.1 Anemia in chronic kidney disease

== ENCOUNTER → 2019-01-29 | Outpatient (CLI) | payer MEDICARE ==
[~2019-01-29] MED LIST changes: -BENADRYL25 MG PO; -COLACE100 MG PO; -DULCOLAX5 MG PO; -ELIQUIS2.5 MG PO; +HYDRALAZINE 2525 MG; -HYDRALAZINE 2525 MG PO; +IMDUR 60 MG TAB60 M1; -IMDUR 60 MG TAB60 M1 PO; +LASIX 40 MG TAB40 M2; -LASIX 40 MG TAB40 M2 PO; -LIDOCAINE PAIN1 EACH TRANSDERM; -MELATONIN10 M2 PO; -OXYCODONE HCL 55 MG PO
[2019-01-29 08:04] VITALS: BP 146/70
[2019-01-29 08:18] LABS: HEMATOCRIT 29.6 % (42.0-52.0); HEMOGLOBIN 9.7 gm/dL (14.0-18.0); MCH 31.7 pg (26.0-34.0); MCHC 32.8 g/dL (28.0-37.0); MCV 96.7 fL (80.0-100.0); MPV 8.6 fl. (7.2-11.1); RBC 3.06 mil/uL (4.50-6.00); RDW-CV 15.5 % (10.5-14.5); WBC 4.7 thou/uL (4.0-11.0)
[2019-01-29 08:31] LABS: ALBUMIN 3.7 g/dL (3.4-5.0); CALCIUM 8.3 mg/dL (8.5-10.1); CREATININE 4.7 mg/dL (0.6-1.3); POTASSIUM 5.9 mmol/L (3.5-5.1); TOTAL BILIRUBIN 0.2 mg/dL (<0.1-1.0); TOTAL PROTEIN 6.9 g/dL (6.4-8.2)
[2019-01-29 08:51] LABS: APTT 26.4 Seconds (25.0-31.3); INR 0.9; PROTIME 9.6 Seconds (9.20-11.50)
[2019-01-29 09:54] VITALS: BP 146/58
== END ==
LOC: M.INT 06:17
PROVIDERS: Radiology Vascular & Interventional Radiology
DX: Z45.2 Encounter for adjustment and management of vascular access device (principal); I12.0 Hypertensive chronic kidney disease with stage 5 chronic kidney disease or end stage renal disease; N18.6 End stage renal disease; D63.1 Anemia in chronic kidney disease; E78.5 Hyperlipidemia, unspecified; F32.9 Major depressive disorder, single episode, unspecified; I42.9 Cardiomyopathy, unspecified; Z98.890 Other specified postprocedural states; Z88.0 Allergy status to penicillin; Z88.6 Allergy status to analgesic agent; Z79.82 Long term (current) use of aspirin; Z79.899 Other long term (current) drug therapy; Z87.891 Personal history of nicotine dependence

== ENCOUNTER → 2019-02-10 | Outpatient (CLI) | payer MEDICARE ==
[~2019-02-10] MED LIST changes: +BENADRYL25 MG PO; +COLACE100 MG PO; +DULCOLAX5 MG PO; +ELIQUIS2.5 MG PO; +EPOGEN10000 UNIT IV PUSH; -HYDRALAZINE 2525 MG; +HYDRALAZINE 2525 MG PO; -IMDUR 60 MG TAB60 M1; +IMDUR 60 MG TAB60 M1 PO; +IRON325 PO; -LASIX 40 MG TAB40 M2; +LASIX 40 MG TAB40 M2 PO; +LIDOCAINE PAIN1 EACH TRANSDERM; +MELATONIN10 M2 PO; +NORCO 5-325 TA1 EACH PO; +OXYCODONE HCL 55 MG PO
== END ==
LOC: M.INFUS 00:58
DX: N18.4 Chronic kidney disease, stage 4 (severe) (principal); D63.1 Anemia in chronic kidney disease; Z53.9 Procedure and treatment not carried out, unspecified reason

== ENCOUNTER 2019-02-11 09:48 | Inpatient (IN) | payer MEDICARE ==
[2019-01-30 08:51] LABS: MPV 8.3 fl. (7.2-11.1); NUCLEATED RBCS 0 /100WBC
[2019-01-30 08:53] LABS: ABSOLUTE BASOPHILS 0.1 thou/uL (0.0-0.2); ABSOLUTE EOSINOPHILS 0.1 thou/uL (0.0-0.7); ABSOLUTE LYMPHOCYTES 1.1 thou/uL (0.8-5.3); ABSOLUTE MONOCYTES 0.5 thou/uL (0.0-1.2); ABSOLUTE NEUTROPHILS 3.6 thou/uL (1.6-8.1); BASOPHILS 1.2 %; EOSINOPHILS 1.8 %; HEMATOCRIT 29.1 % (42.0-52.0); HEMOGLOBIN 9.3 gm/dL (14.0-18.0); LYMPHOCYTES 21.1 %; MCH 31.4 pg (26.0-34.0); MCHC 32.1 g/dL (28.0-37.0); MCV 97.8 fL (80.0-100.0); MONOCYTES 9.4 %; PLATELET COUNT* 196 thou/uL (150-400); POLYS 66.5 %; RBC 2.97 mil/uL (4.50-6.00); RDW-CV 15.4 % (10.5-14.5); WBC 5.4 thou/uL (4.0-11.0)
[2019-01-30 09:03] LABS: ALBUMIN 3.7 g/dL (3.4-5.0); CALCIUM 8.6 mg/dL (8.5-10.1); CREATININE 5.4 mg/dL (0.6-1.3); POTASSIUM 5.8 mmol/L (3.5-5.1); TOTAL BILIRUBIN 0.1 mg/dL (<0.1-1.0)
[2019-01-30 09:54] LABS: ESR (SEDRATE) 24 mm/hr (0-20)
[2019-01-31 02:10] LABS: GLYCOHEMOGLOBIN (HGB A1C) 5.2 % (4.8-5.6)
--- NOTE | 2019-02-07 11:00 | NUR ---
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 HE WAS HAPPY TO SEE CM. HE SAID HE IS HAVING A KNEE REPLACEMENT NEXT WEEK. HE LIVES ALONE AND WILL NOT HAVE ANY ASSISTANCE AT DISCHARGE. TOLD HIM DEPENDING ON HOW HE DOES POST OP AND IN THERAPY HE MAY NEED TO GO TO A SNF. HE ASKED ABOUT INPT.REHAB. I TOLD HIM USUALLY INSURANCE DOES NOT ALLOW ELECTIVE SURGERIES TO GO TO INPT.REHAB. HE DOES HAVE A FRONT WHEEL WALKER AT HOME. HE ALSO RECENTLY STARTED DIALYSIS AT [facility] . CM WILL FOLLOW UP AND SEE HIM THE DAY AFTER HIS SURGERY.
[~2019-02-11] VITALS: Ht 175.3 cm; Wt 102.1 kg
--- NOTE | ~2019-02-11 | CON ---
[address] [address] CONSULTATION Name: SALINA TRAN Room: [address] IN .R.#: [id number] Admission: 02/11/19 Attend Phys: Nanci Ross Discharge: Date of : 52 Report #: [id number] THIS REPORT FOR: //name// CC: Chad Khoury DATE OF SERVICE: 02/12/2019 NEPHROLOGY CONSULTING: CONSULTING PHYSICIAN: Mc Khoury DO. REASON FOR NEPHROLOGY CONSULTATION: End-stage renal disease, on hemodialysis. REASON FOR ADMISSION: Right knee pain. HISTORY OF PRESENT ILLNESS: This is a 68-year-old male with past medical history of chronic kidney disease stage 5, ESRD, on hemodialysis every Sunday, Sunday and Sunday, who goes to [facility], still makes urine, chronic systolic congestive heart failure, ejection fraction of 35% and this was back in December with grade 1 diastolic dysfunction and degenerative joint disease, came in with right knee pain. He underwent right knee total arthroplasty yesterday and we have been consulted for dialysis needs. The patient states that he still makes quite good bit of urine at least 32 ounces. He is just hurting in his right knee. Otherwise, he is asymptomatic. ALLERGIES: PENICILLINS AND CODEINE. REVIEW OF SYSTEMS: As mentioned in history of present illness, otherwise negative. HOME MEDICATIONS: Include tamsulosin, hydroxyzine, bupropion, carvedilol, lamotrigine, atorvastatin, cholecalciferol, isosorbide mononitrate, calcitriol, furosemide, hydralazine, aspirin. PAST MEDICAL AND SURGICAL HISTORY: Includes ESRD, on hemodialysis Sunday, Sunday and Sunday, left total knee arthroplasty, right ankle reconstruction, right hand reconstruction, hypertension, dyslipidemia, chronic systolic and diastolic congestive heart failure, ejection fraction 35% with grade 1 diastolic dysfunction. This is as per echocardiogram done in December of this year. Diskectomy of S1. FAMILY HISTORY: No history of any kidney disease in the family. SOCIAL HISTORY: Lives at home by himself. Does not smoke or [place] [address] CONSULTATION Name: SALINA TRAN Room: [address]#: [id number] Admission: 02/11/19 Attend Phys: Nanci Ross Discharge: Date of : 52 Report #: [id number] use illicit drugs. PHYSICAL EXAMINATION: VITAL SIGNS: Blood pressure is 134/55, respiratory rate is 16, afebrile, pulse is 70, pulse ox is 99% on 3 liters of oxygen via nasal cannula. GENERAL: He is awake, alert, oriented x 3. HEAD AND EYES: Normal conjunctivae, atraumatic, normocephalic. EARS, NOSE AND THROAT: Mucous membranes are moist. NECK: There is no JVD. CHEST: Bilaterally clear to auscultation anteriorly. No crackles or wheezing. CARDIOVASCULAR: S1, S2 normal. No murmurs. ABDOMEN: Soft, nondistended, nontender. Bowel sounds are present. EXTREMITIES: There is no lower extremity edema. Right lower extremity is in Tutu wrap. NEUROLOGICAL FUNCTION: His neurological function is intact. PSYCHIATRIC: Mood and affect seem to be normal. Dialysis access: Right IJ tunneled dialysis catheter. LABORATORY DATA: Hemoglobin is 9.1. His potassium is 5.1. Other labs reviewed. IMAGING: Knee x-ray was reviewed. ASSESSMENT: 1. End-stage renal disease, on hemodialysis every Sunday, Sunday, Sunday. Still makes a good amount of urine. 2. Hypertension, blood pressure is controlled. 3. Chronic systolic congestive heart failure, ejection fraction 35% with grade 1 diastolic dysfunction as per echocardiogram in December of this year, euvolemic. 4. Right total knee arthroplasty done 02/11/2019. 5. Anemia of chronic kidney disease, hemoglobin 9.1. PLAN: 1. Dialysis today as it is his regular day. May continue Lasix 40 mg once a day since he still makes good amount of urine and still has residual kidney function. 2. Please stop LR and do not give him any maintenance IV fluids now, please avoid Celebrex and other NSAIDs because he still has residual renal function. 3. Save his left arm for future dialysis access and if he ends up going to rehab here might consult Vascular Surgery for AV fistula placement while he is here. 4. I's and O's if [place] [address] CONSULTATION Name: SALINA TRAN THANH Room: [address] IN ..#: [id number] Admission: 02/11/19 Attend Phys: Nanci Ross Discharge: Date of : 52 Report #: [id number] Thank you for this consultation. We will continue to follow along with you. Discussed with the patient as well as the patient's nurse. By: 1000 [id number] Mccollum MD /garcía
[~2019-02-11 09:48] MED LIST changes: -BENADRYL25 MG PO; -COLACE100 MG PO; -DULCOLAX5 MG PO; -ELIQUIS2.5 MG PO; -EPOGEN10000 UNIT IV PUSH; -IRON325 PO; -LIDOCAINE PAIN1 EACH TRANSDERM; -MELATONIN10 M2 PO; -NORCO 5-325 TA1 EACH PO; -OXYCODONE HCL 55 MG PO
[2019-02-11 11:49] LABS: CALCIUM 8.8 mg/dL (8.5-10.1); POTASSIUM 4.5 mmol/L (3.5-5.1); TOTAL BILIRUBIN 0.3 mg/dL (<0.1-1.0); TOTAL PROTEIN 7.3 g/dL (6.4-8.2)
[2019-02-11 12:05] VITALS: BP 148/71
[2019-02-11 16:51] VITALS: BP 137/55
--- NOTE | 2019-02-11 17:13 | NUR ---
PT IS ALERT AND ORIENTED. PT IS ON3 LITERS O2. PULSES 2+ IN ALL EXTREMITIES. DRESSING TO RT HIP C/D/I. PT C/O PAIN, MEDS GIVEN ORDERED. POLAR PACK TO RT KNEE. ROBLES HOSE ON LT LEG. FOOT PUMPS BILATERALLY. FALL RISK PRECAUTIONS IN PLACE. HOURLY ROUNDING COMPLETED. WILL CONTINUE TO MONITOR.
[2019-02-11 20:00] VITALS: BP 141/59
[2019-02-12] VITALS (8 sets, daily range): BP systolic 70–162; BP diastolic 32–79
--- NOTE | 2019-02-12 04:57 | NUR ---
ASSUMED CARE OF PT AT 1900 PT ALERT AND ORIENTED X4 VS AND ASSESSMENT STABLE POSITIVE CMS CHECKS TO RLE. PT HAD PAIN MEDS PER ROLANDA. WILL CONTINUE PLAN OF CARE.
[2019-02-12 05:25] LABS: HEMATOCRIT 27.1 % (42.0-52.0); HEMOGLOBIN 9.1 gm/dL (14.0-18.0)
--- NOTE | 2019-02-12 08:05 | OP ---
[address] [address] OPERATIVE REPORT Name: SALINA TRAN THANH Room: [address] IN M.R.#: [id number] Admission: 02/11/19 Attend Phys: Nanci Ross Discharge: Date of : 52 Report #: [id number] THIS REPORT FOR: //name// CC: Chad Khoury DATE OF SERVICE: 02/11/2019 ORTHOPEDIC SURGERY NOTE PREOPERATIVE DIAGNOSES: 1. Severe primary varus deformity, osteoarthritis of the right knee. 2. Stable benign proximal fibular mass. POSTOPERATIVE DIAGNOSES: 1. Severe primary varus deformity, osteoarthritis of the right knee. 2. Stable benign proximal fibular mass. SURGERY PERFORMED: Payam cemented 3-component right total knee arthroplasty Persona, the femur size 10, E is the tibia, 13 is the poly, 35 is the patella. SURGEON: Chad Valdovinos DO LINE HAUL DRIVER: Gonzalez Prince DO SECOND DIRECTOR OF NATIONAL SALES: Jasbir Montilla DO ANESTHESIA: General anesthetic plus an adductor block. ESTIMATED BLOOD LOSS: 150 mL. DRAINS: No drains. SPECIMENS: No specimens. COMPLICATIONS: No complications. GROSS FINDINGS: Prior to surgery, this gentleman failed all conservative care measures of his right knee. 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 Intraoperative findings correlate with the severe arthritis of all compartments of this knee, significant hypertrophic lipping throughout the femur and the tibia side and posteriorly. Post-placement of the total joint arthroplasty, he had a stable arc of motion in all planes of this right total knee. [address] [address] OPERATIVE REPORT Name: SALINA TRAN THANH Room: [address] IN M.R.#: [id number] Admission: 02/11/19 Attend Phys: Nanci Ross Discharge: Date of : 52 Report #: [id number] SURGERY IN DETAIL: The patient was taken to the operating room and placed on table, given the benefit of general anesthetic. The Anesthesia did do an adductor nerve block as well. He had a well-padded tourniquet placed on his right thigh region. He underwent Hibiclens scrub, chlorhexidine prep and sterile draping for right knee surgery. After that draping, a timeout was called and verified for the right knee by everyone in the room. Surgery began without a tourniquet. I only used it for cementing stage of this total knee. A midline incision was made with a 20 blade scalpel through the skin and subcutaneous tissues followed with a second medial parapatellar capsular incision. Patella was everted and knee flexed to 90 degrees ____ and hemostasis was maintained. All excess osteophytes were removed from this bone on the femur and the tibia side. At this point in time, distal femoral drill hole was made in routine fashion. Using the cutting guide, the distal femur was placed appropriately. I took an extra 2 mm off this femur as he had a significant extension lag of at least 10 degrees. Once this was accomplished, using an external guide to the ankle and the tibia, I did go ahead and measure off the most deficient side and secured the cutting block in place there and the cutting block was just cut right beneath the hard sclerotic medial bone. A 10 block fit easily into the joint at this stage. Surgeon now continued going back to the femoral size, sizing it to #10. Appropriately, the drill holes were made. The 4-in-1 block was applied, all cuts were now made and the excess bone was removed. Posterior condyle extra bone was removed off with an osteotome. At this point in time, I went back to the tibia and I did go ahead and sized it to #8. Appropriately that trial block was secured in place with pins. Femur was put on and into position. A 10 mm polyethylene was put in the knee and it felt fairly balanced with a slight gapping medially, slight tightness laterally. At this point in time, we elected to cut the patella using the Payam reamer, appropriately it was now sized and it was a 35, appropriately drill holes were made, patella tracked quite nicely once it was put in position. I was preparing the knee for cementing technique and at this stage, I Esmarch the extremity and inflated it to 325 mmHg. I did go ahead and I drilled the distal femur, removed the polyethylene and the distal femur appropriately drilled and tamped the tibia and removed that component as well. Pulsatile lavage irrigation was used across this knee. I did go ahead and do pie-crusting to that IT band region of the right knee. At this point in time, I went ahead and did a 1 stage cementing technique, cemented the tibia first, removed excess cement, cemented the femur second, removed excess cement. Prior to even placement of these, we did burn all the posterior corner spur as well. Surgery continued with cementing the patella. I did stretch him with a 12 mm polyethylene trial, held the leg in extension until cement had hardened. I did a trial with this, it looked like we could probably get a 13 even giving better stability and so I did a trial with 13, it was wonderful through the entire arc of motion 0-120. At this point in time that trial polyethylene was removed. I prepared him for the real polyethylene and secured and clicked it into the tibia tray. Knee was reduced and a quite stable knee was noted. Patella tracked excellent. I did a [facility] [address] [place] [address] OPERATIVE REPORT Name: SALINA TRAN Room: [address] IN ..#: [id number] Admission: 02/11/19 Attend Phys: Nanci Ross Discharge: Date of : 52 Report #: [id number] wash followed with a normal saline wash and a TXA solution with the tourniquet released and the hemostasis was easily maintained. Capsule was closed with 1 Ti-Cron and 1 Vicryl in cugojl-ms-gudge fashion, subcutaneous tissue with 2-0 Monocryl inverted fashion and V-Loc with Dermabond to the skin. Mepilex dressing was applied, transferred off the table, and taken to recovery room in stable condition. I attest I was present for all critical aspects of surgery. Needle, instrument and sponge counts correct. <ELECTRONICALLY SIGNED> By: Chad Valdovinos DO 02/12/19 0805 1451 [id number] Valdovinos DO /nt
[2019-02-12 08:26] LABS: CALCIUM 8.4 mg/dL (8.5-10.1); CREATININE 4.4 mg/dL (0.6-1.3); MAGNESIUM 2.1 mg/dL (1.8-2.4); POTASSIUM 5.1 mmol/L (3.5-5.1)
--- NOTE | 2019-02-12 15:11 | NUR ---
MET WITH PT TO DISCUSS HOME SIUTATION/DC PLANNING. PT LIVES ALONE, HAS SUPPORTIVE DTR. 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 HE GOES TO DIALYSIS AT [facility] AFTERNOON, IS HOPING TO TRANSFER TO [facility] WHEN THEY HAVE AN OPENING. PT IS INTERESTED IN GOING TO REHAB, HAS MEDICAL COMPLEXITY. PT ONLY HAS MEDICARE, NO TIE IN. DISCUSSED SNF IS NOT ABLE TO GO TO REHAB AND PREFERS [facility]. SPOKE WITH [facility]. SHE WILL FOLLOW AND SEE HOW PT DOES IN THERAPY.
--- NOTE | 2019-02-12 17:20 | NUR ---
PT REMAINED ALERT AND ORIENTED. PT BP DROPPED TO LOW 70'S OVER 40'S. 500 CC FLUID BOLUS GIVEN ORDERD. BP WENT TO 79/48. PHYSICIAN AWARE AND TOLD TO HOLD BP MEDS AND PAIN MEDS. NEPHROLOGY NOTIFIED. HOLD C[facility]G TOMORROW. PT BP INCREASED TO HIH 90'S SYSTOLIC, ONE OXY IR GIVEN ORDERED. 2ND THERAPY SESSION HELD AND DIALYSIS HELD. WILL HOLD DIALYSIS TOMORROW. FALL RISK PRECAUTIONS IN PLACE. HOURLY ROUNDING COMPLETED. WILL CONTINUE TO MONITOR.
[2019-02-13 04:21] LABS: HEMATOCRIT 24.8 % (42.0-52.0); HEMOGLOBIN 8.3 gm/dL (14.0-18.0)
--- NOTE | 2019-02-13 05:00 | NUR ---
ASSUMED PATIENT CARE AT 1900. PATIENT ALERT AND ORIENTED TIMES FOUR. PAIN NOT WELL CONTROLLED ON CURRENET MEDICATION REGIME. POLAR PACK IN PLACE. INFORMATION OPERATOR AND HORLY ROUNDING COMPLETED DOCUMENTED
--- NOTE | 2019-02-13 05:24 | NUR ---
PATIENT VERBALIZED THAT HIS PAIN WAS ALMOST TO A TOLERABLE LEVEL ON CURRENT REGIMENT. RATES PAIN AT A 5 AND STATES THAT A TOLERABLE LEVEL WOULD BE A 4-4.5
[2019-02-13 07:50] VITALS: BP 120/66
[2019-02-13 10:01] VITALS: BP 127/68
--- NOTE | 2019-02-13 15:34 | NUR ---
[facility] SAID PER , THEY WILL BE ABLE TO ACCEPT PT.TO INPT.REHAB UNIT, WHEN MEDICALLY STABLE.
--- NOTE | 2019-02-13 16:58 | NUR ---
ASSUMED CARE OF HA AT APPROX 0730. ALERT AND ORIENTED X4. ASSESSMENT COMPLETED AND CHARTED. VSS ON ROOM AIR. PAIN MANAGED WITH SCHEDULED PERCOCET. PATIENT UP TO DIALYSIS AT APPROX 1240 AND REMAINS THERE AT THIS TIME. WORKED WELL WITH MORNING THERAPY AND PROGRESSED TOWARD GOALS. HOURLY ROUNDS COMPLETED, CALL LIGHT WITHIN REACH AND FALL PRECAUTIONS IN PLACE WHILE HA WAS ON UNIT.
[2019-02-13 20:00] VITALS: BP 116/60
[2019-02-14] VITALS: BP 131/51
[2019-02-14 04:00] VITALS: BP 143/60
--- NOTE | 2019-02-14 05:39 | NUR ---
Alert and oriented x 4. Vitals have been stable all of this shift. Rt knee mepilex dressing is dry and intact with polarcare in place. Foot pumps are in place. He had oxy IR x 2 this shift for rt knee pain and scheduled percocet at midnight. He stated that it did help with the pain. Rt chest dialysis cath dressing intact. He has voided adequately. He did sleep intermittenly.
[2019-02-14 08:41] VITALS: BP 137/56
[2019-02-14] MEDS ORDERED: DULCOLAX5 MG PO (12:02)
[2019-02-14] MEDS ORDERED: BENADRYL25 MG PO (12:02)
[2019-02-14] MEDS ORDERED: LAMOTRIGINE150 MG PO ×2 (12:03)
[2019-02-14] MEDS ORDERED: LIDOCAINE PAIN1 EACH TRANSDERM (12:09)
[2019-02-14] MEDS ORDERED: COLACE100 MG PO (12:18)
[2019-02-14] MEDS ORDERED: ELIQUIS2.5 MG PO (12:19)
[2019-02-14] MEDS ORDERED: MELATONIN10 M2 PO (12:21)
[2019-02-14] MEDS ORDERED: OXYCODONE HCL 55 MG PO (12:22)
[2019-02-14] MEDS ORDERED: PERCOCET PO (12:23)
--- NOTE | 2019-02-14 12:48 | NUR ---
physician wrote orders for pt d/c to inpatient acute rehab unit this afternoon. CM faxed pt's d/c orders to inpatient rehab. CM to remain available to assist and follow as needed.
--- NOTE | 2019-02-14 13:53 | NUR ---
ASSUMED CARE OF PATIENT AT APPROX 0730. ALERT AND ORIENTED X4. ASSESSMENT COMPLETED AND CHARTED. VSS ON ROOM AIR. PAIN MANAGED WITH ORAL PAIN MEDICATION. WORKED WITH THERAPIES AND PROGRESSED TOWARD GOALS. [place] [id number] WITH ALL PERSONAL BELONGINGS AND CHART.
== END 2019-02-14 13:15 | DRG 469 ==
LOC: M.SUR 09:48 → M.ORTHSURG 15:02 → M.TBA 15:02 → M.ORTHSURG 15:27
PROVIDERS: Internal Medicine; Orthopaedic Surgery; ADMIT Internal Medicine
PROC: 0SRC0J9 Replacement of Right Knee Joint with Synthetic Substitute, Cemented, Open Approach (ICD-10-PCS; principal; 2019-02-11)
DX: M17.11 Unilateral primary osteoarthritis, right knee (principal); N18.6 End stage renal disease; I50.42 Chronic combined systolic (congestive) and diastolic (congestive) heart failure; I13.2 Hypertensive heart and chronic kidney disease with heart failure and with stage 5 chronic kidney disease, or end stage renal disease; Z96.652 Presence of left artificial knee joint; E78.5 Hyperlipidemia, unspecified; D63.1 Anemia in chronic kidney disease; R22.40 Localized swelling, mass and lump, unspecified lower limb; M21.161 Varus deformity, not elsewhere classified, right knee; G89.29 Other chronic pain; N40.0 Benign prostatic hyperplasia without lower urinary tract symptoms; Z68.33 Body mass index [BMI] 33.0-33.9, adult; E66.9 Obesity, unspecified; Z99.2 Dependence on renal dialysis; Z88.6 Allergy status to analgesic agent; Z88.0 Allergy status to penicillin; Z79.82 Long term (current) use of aspirin; Z79.899 Other long term (current) drug therapy

== ENCOUNTER 2019-02-14 11:46 | Inpatient (IN) | payer MEDICARE ==
[~2019-02-14] VITALS: Ht 175.3 cm; Wt 100.7 kg
[2019-02-14] MEDS ORDERED: DULCOLAX5 MG PO ×2 (12:02)
[2019-02-14] MEDS ORDERED: BENADRYL25 MG PO ×2 (12:02)
[2019-02-14] MEDS ORDERED: LAMOTRIGINE150 MG PO (12:03)
[2019-02-14] MEDS ORDERED: LIDOCAINE PAIN1 EACH TRANSDERM ×2 (12:09)
[2019-02-14] MEDS ORDERED: COLACE100 MG PO ×2 (12:18)
[2019-02-14] MEDS ORDERED: ELIQUIS2.5 MG PO ×2 (12:19)
[2019-02-14] MEDS ORDERED: MELATONIN10 M2 PO ×2 (12:21)
[2019-02-14] MEDS ORDERED: OXYCODONE HCL 55 MG PO ×2 (12:22)
[2019-02-14] MEDS ORDERED: PERCOCET PO ×2 (12:23)
[2019-02-14 14:23] VITALS: BP 126/66
[2019-02-14 16:17] LABS: ABSOLUTE EOSINOPHILS 0.1 thou/uL (0.0-0.7); ABSOLUTE LYMPHOCYTES 0.8 thou/uL (0.8-5.3); ABSOLUTE MONOCYTES 0.8 thou/uL (0.0-1.2); ABSOLUTE NEUTROPHILS 5.3 thou/uL (1.6-8.1); BASOPHILS 0.5 %; EOSINOPHILS 1.4 %; HEMATOCRIT 23.9 % (42.0-52.0); HEMOGLOBIN 7.9 gm/dL (14.0-18.0); LYMPHOCYTES 11.5 %; MCH 31.6 pg (26.0-34.0); MCHC 33.2 g/dL (28.0-37.0); MCV 95.2 fL (80.0-100.0); MONOCYTES 11.7 %; MPV 7.7 fl. (7.2-11.1); NUCLEATED RBCS 0 /100WBC; PLATELET COUNT* 213 thou/uL (150-400); POLYS 74.9 %; RBC 2.51 mil/uL (4.50-6.00); RDW-CV 14.4 % (10.5-14.5); WBC 7.1 thou/uL (4.0-11.0)
[2019-02-14 16:24] LABS: CALCIUM 8.5 mg/dL (8.5-10.1); CREATININE 4.2 mg/dL (0.6-1.3); POTASSIUM 4.2 mmol/L (3.5-5.1)
[2019-02-14 20:10] VITALS: BP 150/62
[2019-02-14 23:11] LABS: URINE BILIRUBIN NEGATIVE (Negative); URINE BLOOD 1+ (Negative); URINE CLARITY CLEAR; URINE COLOR YELLOW; URINE GLUCOSE-RANDOM NEGATIVE (Negative); URINE KETONES NEGATIVE (Negative); URINE LEUKOCYTES-REFLEX NEGATIVE (Negative); URINE NITRITE-REFLEX NEGATIVE (Negative); URINE PROTEIN 2+ (Negative); URINE UROBILINOGEN 0.2 E.U./dl (0.2-1.0)
[2019-02-14 23:22] LABS: BACTERIA-REFLEX 1-9 Few /HPF (None Seen); CASTS None Seen /LPF (None Seen); CRYSTALS None Seen /LPF (None Seen); MUCUS 0-3 Light strn/LPF (None Seen); SQUAMOUS 0-3 Few /LPF (0-3); URINE RBC 0-2 Rare /HPF (0-2); URINE WBC-REFLEX 0-5 Rare /HPF (0-5)
[2019-02-15 07:15] VITALS: BP 133/80
[2019-02-15 21:40] VITALS: BP 175/64
[2019-02-16 08:00] VITALS: BP 158/60
[2019-02-16 19:00] VITALS: BP 131/50
[2019-02-17 08:01] VITALS: BP 122/90
[2019-02-17 13:25] LABS: ABSOLUTE EOSINOPHILS 0.2 thou/uL (0.0-0.7); ABSOLUTE LYMPHOCYTES 0.7 thou/uL (0.8-5.3); ABSOLUTE MONOCYTES 0.5 thou/uL (0.0-1.2); ABSOLUTE NEUTROPHILS 5.5 thou/uL (1.6-8.1); BASOPHILS 0.5 %; EOSINOPHILS 2.3 %; HEMATOCRIT 22.5 % (42.0-52.0); HEMOGLOBIN 7.4 gm/dL (14.0-18.0); LYMPHOCYTES 9.5 %; MCH 31.4 pg (26.0-34.0); MCV 95.1 fL (80.0-100.0); MONOCYTES 7.5 %; MPV 7.8 fl. (7.2-11.1); NUCLEATED RBCS 0 /100WBC; PLATELET COUNT* 235 thou/uL (150-400); POLYS 80.2 %; RBC 2.36 mil/uL (4.50-6.00); RDW-CV 14.6 % (10.5-14.5); WBC 6.9 thou/uL (4.0-11.0)
[2019-02-17 20:00] VITALS: BP 103/68; BP 109/57
[2019-02-18 07:15] VITALS: BP 144/57
--- NOTE | 2019-02-18 08:35 | CON ---
[address] [address] CONSULTATION Name: SALINA TRAN THANH Room: [address] IN .R.#: [id number] Admission: 02/14/19 Attend Phys: Richard Martinez MD Discharge: Date of : 52 Report #: [id number] THIS REPORT FOR: //name// CC: CARA Martinez DATE OF SERVICE: 02/15/2019 NEPHROLOGY CONSULTATION CONSULTING PHYSICIAN: Richard Martinez M.D. REASON FOR NEPHROLOGY CONSULTATION: End-stage renal disease, on maintenance hemodialysis needs. REASON FOR ADMISSION OR CHIEF COMPLAINT: For rehabilitation. HISTORY OF PRESENT ILLNESS: This is a 68-year-old male with past medical history of end-stage renal disease, on hemodialysis every Sunday, Sunday and Sunday, who recently underwent right total knee arthroplasty this week because of degenerative joint disease, has been admitted to rehab for continuation of dialysis. The patient is normally on dialysis Sunday, Sunday and Sunday, but rehab schedule demands for the patient to be on a TTS or Sunday, and Sunday schedule. He still makes good amount of urine. He is currently asymptomatic. He was dialyzed the day before yesterday, so he is going to be dialyzed today now. ALLERGIES: HE HAS ALLERGIES TO PENICILLIN AND CODEINE. REVIEW OF SYSTEMS: As mentioned in the history of present illness; otherwise, 10-point review of systems is negative. HOME MEDICATIONS: Include tamsulosin, hydroxyzine, bupropion, carvedilol, lamotrigine, atorvastatin, cholecalciferol, isosorbide mononitrate, calcitriol, furosemide, hydralazine and aspirin. PAST MEDICAL AND SURGICAL HISTORY: Includes ESRD, on hemodialysis Sunday, Sunday and Sunday; left total knee arthroplasty in the past; right ankle reconstruction; right hand reconstruction; right total knee arthroplasty; hypertension; dyslipidemia and chronic systolic and diastolic congestive heart failure, ejection fraction 35% with grade 1 diastolic dysfunction. FAMILY HISTORY: Noncontributory. SOCIAL HISTORY: Lives at home by himself. He does not smoke or take alcohol [place] [address] CONSULTATION Name: SALINA TRAN THANH Room: [address]#: [id number] Admission: 02/14/19 Attend Phys: Richard Martinez MD Discharge: Date of : 52 Report #: [id number] PHYSICAL EXAMINATION: VITAL SIGNS: His blood pressure is 133/88, pulse rate is 73, temperature is 36.6, respiratory rate is 16 and pulse ox is 97% on room air. GENERAL: He is awake, alert and oriented x 3. HEAD AND EYES: Normal conjunctivae. Head is atraumatic, normocephalic. EARS, NOSE AND THROAT: Mucous membranes are moist. NECK: There is no JVD. CHEST: Bilaterally clear to auscultation. No crackles or wheezing heard. CARDIOVASCULAR: S1, S2 normal. No murmurs. ABDOMEN: Soft, nontender and nondistended. Bowel sounds are present. EXTREMITIES: There is no lower extremity edema. NEUROLOGICAL FUNCTION: Gross neurological function is intact. PSYCHIATRIC: Mood and affect seem to be normal. DIALYSIS ACCESS: He has right IJ tunneled dialysis catheter, which is intact. LABORATORY DATA: His hemoglobin is 7.9. His sodium is 133, his potassium is 4.2. Other labs were reviewed. IMAGING: There is no imaging to be reviewed. ASSESSMENT: 1. End-stage renal disease, on hemodialysis, normal days are Sunday, Sunday and Sunday, but because of rehabilitation, he is on Sunday, and Sunday schedule now. 2. Anemia of chronic kidney disease, hemoglobin 7.9. 3. Mild hyponatremia. 4. Hypertension. 5. Status post right knee total knee arthroplasty, getting rehabilitation. PLAN: We will give him Epogen with dialysis. We will dialyze him today. Thank you for this consultation and please call with any questions. We will continue to follow for dialysis needs. <ELECTRONICALLY SIGNED> By: Deanne Mccollum MD 02/18/19 0835 [id number] [id number] Mccollum MD /nt
[2019-02-18 20:04] VITALS: BP 120/50
[2019-02-19 08:02] VITALS: BP 140/89
[2019-02-19 15:13] VITALS: BP 140/89
[2019-02-19 20:12] VITALS: BP 141/54
[2019-02-20 04:49] LABS: HEMATOCRIT 21.4 % (42.0-52.0); HEMOGLOBIN 7.2 gm/dL (14.0-18.0); MCH 31.4 pg (26.0-34.0); MCHC 33.6 g/dL (28.0-37.0); MCV 93.6 fL (80.0-100.0); MPV 7.8 fl. (7.2-11.1); RBC 2.29 mil/uL (4.50-6.00); RDW-CV 14.7 % (10.5-14.5)
[2019-02-20 05:54] LABS: CALCIUM 8.9 mg/dL (8.5-10.1); CREATININE 4.4 mg/dL (0.6-1.3); MAGNESIUM 2.4 mg/dL (1.8-2.4); POTASSIUM 4.1 mmol/L (3.5-5.1)
[2019-02-20 09:50] VITALS: BP 152/41
[2019-02-20 20:10] VITALS: BP 127/45
[2019-02-21 09:08] VITALS: BP 150/55
[2019-02-21 20:12] VITALS: BP 155/52
[2019-02-21 21:00] VITALS: BP 155/52
[2019-02-22 06:15] LABS: CREATININE 4.2 mg/dL (0.6-1.3); POTASSIUM 4.1 mmol/L (3.5-5.1)
[2019-02-22 06:18] LABS: ALBUMIN 2.9 g/dL (3.4-5.0)
[2019-02-22 07:00] VITALS: BP 149/59
[2019-02-22 19:07] VITALS: BP 138/75; BP 145/65; BP 146/63; BP 151/76
[2019-02-22 22:15] VITALS: BP 146/63
[2019-02-23 04:31] LABS: ABSOLUTE BASOPHILS 0.1 thou/uL (0.0-0.2); ABSOLUTE EOSINOPHILS 0.1 thou/uL (0.0-0.7); ABSOLUTE LYMPHOCYTES 1.2 thou/uL (0.8-5.3); ABSOLUTE MONOCYTES 0.5 thou/uL (0.0-1.2); ABSOLUTE NEUTROPHILS 3.8 thou/uL (1.6-8.1); BASOPHILS 1.1 %; HEMATOCRIT 23.9 % (42.0-52.0); HEMOGLOBIN 8.3 gm/dL (14.0-18.0); MCH 31.8 pg (26.0-34.0); MCHC 34.6 g/dL (28.0-37.0); MCV 91.9 fL (80.0-100.0); MONOCYTES 9.4 %; MPV 7.6 fl. (7.2-11.1); NUCLEATED RBCS 0 /100WBC; PLATELET COUNT* 379 thou/uL (150-400); POLYS 66.5 %; RDW-CV 14.9 % (10.5-14.5); WBC 5.7 thou/uL (4.0-11.0)
[2019-02-23 04:54] LABS: CALCIUM 8.8 mg/dL (8.5-10.1); CREATININE 2.7 mg/dL (0.6-1.3); MAGNESIUM 2.2 mg/dL (1.8-2.4); POTASSIUM 4.1 mmol/L (3.5-5.1)
[2019-02-23 07:30] VITALS: BP 135/66
[2019-02-23 09:30] VITALS: BP 94/40
[2019-02-23 10:10] VITALS: BP 123/48
[2019-02-23 11:50] VITALS: BP 137/60
[2019-02-23 16:15] VITALS: BP 158/72
[2019-02-23 19:57] VITALS: BP 141/68
[2019-02-24 19:30] VITALS: BP 158/68
[2019-02-25 07:15] VITALS: BP 136/59
[2019-02-25 11:17] LABS: HEMATOCRIT 26.4 % (42.0-52.0); HEMOGLOBIN 8.7 gm/dL (14.0-18.0)
[2019-02-25 11:30] LABS: ALBUMIN 3.2 g/dL (3.4-5.0); PHOSPHORUS* 4.8 mg/dL (2.5-4.9); POTASSIUM 4.5 mmol/L (3.5-5.1)
[2019-02-25 19:20] VITALS: BP 99/55
[2019-02-26 07:00] VITALS: BP 114/76
[2019-02-26 20:00] VITALS: BP 149/67
[2019-02-27 07:45] VITALS: BP 125/80
[2019-02-27 08:53] VITALS: BP 125/80
[2019-02-27 20:09] VITALS: BP 147/70
[2019-02-28 08:59] VITALS: BP 161/73
[2019-02-28 20:08] VITALS: BP 170/77
[2019-03-01 05:41] LABS: ABSOLUTE BASOPHILS 0.1 thou/uL (0.0-0.2); ABSOLUTE EOSINOPHILS 0.2 thou/uL (0.0-0.7); ABSOLUTE LYMPHOCYTES 1.3 thou/uL (0.8-5.3); ABSOLUTE MONOCYTES 0.7 thou/uL (0.0-1.2); ABSOLUTE NEUTROPHILS 3.1 thou/uL (1.6-8.1); EOSINOPHILS 3.3 %; HEMATOCRIT 26.3 % (42.0-52.0); HEMOGLOBIN 8.4 gm/dL (14.0-18.0); LYMPHOCYTES 25.2 %; MCH 30.2 pg (26.0-34.0); MCV 94.5 fL (80.0-100.0); MONOCYTES 12.5 %; MPV 7.9 fl. (7.2-11.1); NUCLEATED RBCS 0 /100WBC; PLATELET COUNT* 351 thou/uL (150-400); RBC 2.78 mil/uL (4.50-6.00); RDW-CV 14.9 % (10.5-14.5); WBC 5.3 thou/uL (4.0-11.0)
[2019-03-01 05:46] LABS: CALCIUM 9.1 mg/dL (8.5-10.1); CREATININE 4.2 mg/dL (0.6-1.3); MAGNESIUM 2.5 mg/dL (1.8-2.4); POTASSIUM 4.2 mmol/L (3.5-5.1)
[2019-03-01 05:50] LABS: ALBUMIN 3.1 g/dL (3.4-5.0); CALCIUM 8.9 mg/dL (8.5-10.1); CREATININE 4.2 mg/dL (0.6-1.3); PHOSPHORUS* 4.1 mg/dL (2.5-4.9); POTASSIUM 4.7 mmol/L (3.5-5.1)
[2019-03-01 07:00] VITALS: BP 131/73
[2019-03-01 20:04] VITALS: BP 117/53
[2019-03-02 07:46] VITALS: BP 101/62
[2019-03-02 20:00] VITALS: BP 121/57
[2019-03-03 07:29] VITALS: BP 155/84
[2019-03-03] MEDS ORDERED: EPOGEN10000 UNIT IV PUSH ×2 (07:48)
[2019-03-03] MEDS ORDERED: IRON325 PO ×2 (07:50)
[2019-03-03 07:51] VITALS: BP 140/89
[2019-03-03 07:56] VITALS: BP 155/84
[2019-03-03 08:20] VITALS: BP 140/89
[2019-03-03] MEDS ORDERED: NORCO 5-325 TA1 EACH PO ×2 (12:14)
== END 2019-03-03 08:20 | disposition home health service (06) | DRG 553 ==
LOC: M.REH 11:46
PROVIDERS: Family Medicine; Internal Medicine; Internal Medicine Nephrology; ADMIT Physical Medicine & Rehabilitation
PROC: 5A1D70Z Performance of Urinary Filtration, Intermittent, Less than 6 Hours Per Day (ICD-10-PCS; principal; 2019-02-14)
PROC: 5A1D70Z Performance of Urinary Filtration, Intermittent, Less than 6 Hours Per Day (ICD-10-PCS; 2019-02-15)
PROC: 5A1D70Z Performance of Urinary Filtration, Intermittent, Less than 6 Hours Per Day (ICD-10-PCS; 2019-02-18)
PROC: 5A1D70Z Performance of Urinary Filtration, Intermittent, Less than 6 Hours Per Day (ICD-10-PCS; 2019-02-22)
PROC: 30233N1 Transfusion of Nonautologous Red Blood Cells into Peripheral Vein, Percutaneous Approach (ICD-10-PCS; 2019-02-22)
PROC: 5A1D70Z Performance of Urinary Filtration, Intermittent, Less than 6 Hours Per Day (ICD-10-PCS; 2019-02-25)
DX: M17.11 Unilateral primary osteoarthritis, right knee (principal); N18.6 End stage renal disease; I13.2 Hypertensive heart and chronic kidney disease with heart failure and with stage 5 chronic kidney disease, or end stage renal disease; E87.1 Hypo-osmolality and hyponatremia; I50.42 Chronic combined systolic (congestive) and diastolic (congestive) heart failure; D63.1 Anemia in chronic kidney disease; Z96.651 Presence of right artificial knee joint; N40.0 Benign prostatic hyperplasia without lower urinary tract symptoms; E66.9 Obesity, unspecified; G89.29 Other chronic pain; Z96.652 Presence of left artificial knee joint; E78.5 Hyperlipidemia, unspecified; Z96.653 Presence of artificial knee joint, bilateral; I95.9 Hypotension, unspecified; R21 Rash and other nonspecific skin eruption; Z60.2 Problems related to living alone; F17.210 Nicotine dependence, cigarettes, uncomplicated; Z79.899 Other long term (current) drug therapy; Z88.6 Allergy status to analgesic agent; Z88.0 Allergy status to penicillin; Z68.32 Body mass index [BMI] 32.0-32.9, adult

== ENCOUNTER → 2019-03-03 | Day surgery (SDC) | payer MEDICARE ==
[~2019-03-03] MED LIST changes: +BENADRYL25 MG PO; +COLACE100 MG PO; +DULCOLAX5 MG PO; +ELIQUIS2.5 MG PO; +EPOGEN10000 UNIT IV PUSH; +IRON325 PO; +LIDOCAINE PAIN1 EACH TRANSDERM; +MELATONIN10 M2 PO; +NORCO 5-325 TA1 EACH PO; +OXYCODONE HCL 55 MG PO
[2019-03-03 09:18] LABS: CALCIUM 9.4 mg/dL (8.5-10.1); POTASSIUM 3.9 mmol/L (3.5-5.1)
--- NOTE | 2019-03-03 12:45 | OP ---
[address] [address] OPERATIVE REPORT Name: SALINA TRAN THANH Room: [facility]#: [id number] Admission: 03/03/19 Attend Phys: Braxton Gallego DO Discharge: Date of : 52 Report #: [id number] THIS REPORT FOR: //name// CC: Braxton BOYCE DATE OF SERVICE: 03/03/2019 PREOPERATIVE DIAGNOSIS: End-stage renal disease. POSTOPERATIVE DIAGNOSIS: End-stage renal disease. OPERATION: Creation of left brachiocephalic arteriovenous fistula. SURGEON: Braxton Gallego DO. CONVERSION WORKER: BIANCA Nicolas. ANESTHESIA: Sedation with local. ESTIMATED BLOOD LOSS: 50 mL. FLUIDS: About 200 crystalloid. URINE OUTPUT: None. SPECIMENS: None. COMPLICATIONS: None. FINDINGS: Left cephalic vein dilated up to 3.5 mm without resistance, had a good thrill within the fistula on the upper arm. After completion of the procedure, he had a weak radial and ulnar artery Doppler signals that augmented with fistula compression. The patient remained pink and warm, brisk capillary refill. CLINICAL HISTORY: The patient is a 69-year-old man, currently dialyzing through a tunneled dialysis catheter, in need of a new autogenous access. Vein map reviewed. His left upper cephalic vein appeared to be adequate for autogenous access. DESCRIPTION OF PROCEDURE: After informed consent was obtained, the patient was taken to the operating room and placed on the OR bed in the supine position. He was administered sedation by the anesthesia team. Left upper extremity was prepped and draped in usual sterile fashion. Full timeout was performed identifying correct patient and procedure. Next, the skin and subcutaneous [place] [id number] OPERATIVE REPORT Name: SALINA TRAN THANH Room: [facility].#: [id number] Admission: 03/03/19 Attend Phys: Braxton Gallego DO Discharge: Date of : 52 Report #: [id number] tissues were anesthetized with Marcaine anesthetic. The transverse skin incision was made just proximal to antecubital fossa. Dissection was carried down through skin and subcutaneous tissues, both sharp and electrocautery. Cephalic vein was identified and circumferentially mobilized proximally and distally and controlled with Silastic vessel loop. I then dissected out the brachial artery proximally and distally and controlled with Silastic vessel loops in Espinoza fashion. Administered 5000 units of intravenous heparin. This was allowed to circulate for 3 minutes, transected the vein distally at a branch point. The spatulated vein horton dilated with the coronary dilators up to 3.5 mm with minimal resistance. Flushed with heparinized saline and marked it to prevent axial rotation, then occluded the brachial artery, made a longitudinal arteriotomy, extended with Espinoza scissors and performed end-to-side anastomosis with running 6-0 Prolene suture. Prior to completion of the suture line, the arteries and veins were allowed to fore and backbleed. The anastomosis was flushed with heparinized saline, completed anastomosis, restored flow first up the fistula and distal to the hand. There was good thrill within the cephalic vein in the upper arm. He had a radial and ulnar artery Doppler signals that augmented with fistula compression. Once hemostasis was ensured in the wound with electrocautery, wound was irrigated with antibiotic solution and was closed in layers with 3-0 Vicryl, 4-0 Monocryl in the skin and Dermabond was applied. All sponge, sharp and instrument counts reported correct x 2. He tolerated the procedure well and was transferred to recovery room in stable condition. <ELECTRONICALLY SIGNED> By: Braxton Gallego DO 03/03/19 1245 1139 1159Aanoop Gallego DO /nt
== END | disposition home or self-care (01) ==
LOC: M.SUR 08:15
PROVIDERS: Surgery
DX: N18.6 End stage renal disease (principal); Z98.890 Other specified postprocedural states; Z79.82 Long term (current) use of aspirin; Z79.01 Long term (current) use of anticoagulants; Z79.899 Other long term (current) drug therapy; Z79.891 Long term (current) use of opiate analgesic

== ENCOUNTER → 2019-05-27 | Day surgery (SDC) | payer MEDICARE ==
[~2019-05-27] MED LIST changes: +DIALYVITE 8000.8 M1 PO; +NORCO 5-325 TA1 EAC1 PO; +VELPHORO500 MG PO
[2019-05-27 12:43] LABS: CALCIUM 8.7 mg/dL (8.5-10.1); CREATININE 3.7 mg/dL (0.6-1.3); POTASSIUM 4.4 mmol/L (3.5-5.1)
[2019-05-27 12:48] LABS: TOTAL BILIRUBIN 0.3 mg/dL (<0.1-1.0); TOTAL PROTEIN 7.3 g/dL (6.4-8.2)
--- NOTE | 2019-05-27 15:42 | OP ---
[address] [address] OPERATIVE REPORT Name: SALINA TRAN THANH Room: [facility]#: [id number] Admission: 05/27/19 Attend Phys: Luis Sanford MD Discharge: Date of : 52 Report #: [id number] THIS REPORT FOR: //name// CC: CARA Sanford DATE OF SERVICE: 05/27/2019 PREOPERATIVE DIAGNOSIS: End-stage renal disease. POSTOPERATIVE DIAGNOSIS: End-stage renal disease. PROCEDURE: Right upper extremity brachiocephalic AV fistula formation. SURGEON: Luis Sanford MD LIQUEFIED PETROLEUM GASFITTER: ERIN Boudreaux COMPLICATIONS: None. ESTIMATED BLOOD LOSS: 10 mL. SPECIMEN: None. ANESTHESIA: General. INDICATIONS FOR PROCEDURE: The patient is a very pleasant 69-year-old white male with end-stage renal disease, on dialysis. He has a tunneled dialysis catheter. My partner previously placed a left arm AV fistula, which failed to develop. We plan right arm AV fistula today. Informed consent was obtained from the patient with risks including but not limited to bleeding, infection, need for further surgery, pain, , heart attack, stroke, steal syndrome. The patient understood these risks and was agreeable to proceed. DESCRIPTION OF PROCEDURE: The patient was taken to the OR and placed in the supine position. General anesthesia was initiated. Right arm was prepped and draped. A timeout was performed. I created a transverse incision just above the antecubital fossa, right upper extremity. Sharp and blunt dissection were carried down to cephalic vein. Ultrasound seemed like it was too small for a fistula formation. However, on exam, today, it appears adequate. I dissected out the cephalic vein proximally and distally. I ligated the distal end with a 2-0 silk suture ligature. I spatulated the free end of the vein. I was able to pass a 3 and 4 mm dilator quite easily at the vein. I felt it would be adequate for fistula formation. I transposed the vein over on to the brachial artery, which I also dissected out and controlled proximally and distally. I created a longitudinal arteriotomy in the brachial artery. I [place] [id number] OPERATIVE REPORT Name: SALINA TRAN THANH Room: [facility]#: [id number] Admission: 05/27/19 Attend Phys: Luis Sanford MD Discharge: Date of : 51 Report #: [id number] anastomosis with the vein using a running 6-0 Prolene suture. I heparinized the patient throughout the critical portions of the procedure. After the anastomosis was performed, there was adequate hemostasis and excellent blood flow into the fistula with a palpable thrill running at the patient's arm. The patient maintained a palpable radial pulse. I irrigated the wound with antibiotic saline, controlled bleeding as needed with electrocautery, ties, clips and Andrew. Closed the wound in multiple layers using 2-0 Vicryl, 3-0 Vicryl and Monocryl for the skin. Incision was dressed with Dermabond. The patient was taken alert and awake to the recovery room in good condition. All needle and instrument counts were correct. <ELECTRONICALLY SIGNED> By: Luis Sanford MD 05/27/19 1542 1443 1514Rmihir Sanford MD /nt
== END | disposition home or self-care (01) ==
LOC: M.SUR 08:50
PROVIDERS: Surgery Vascular Surgery
DX: T82.590A Other mechanical complication of surgically created arteriovenous fistula, initial encounter (principal); I12.0 Hypertensive chronic kidney disease with stage 5 chronic kidney disease or end stage renal disease; N18.6 End stage renal disease; Z99.2 Dependence on renal dialysis; Z88.0 Allergy status to penicillin; Z88.8 Allergy status to other drugs, medicaments and biological substances; Z79.82 Long term (current) use of aspirin; Z79.899 Other long term (current) drug therapy; Z98.890 Other specified postprocedural states; Z79.891 Long term (current) use of opiate analgesic; Y83.8 Other surgical procedures as the cause of abnormal reaction of the patient, or of later complication, without mention of misadventure at the time of the procedure

== ENCOUNTER → 2019-06-04 | Outpatient (CLI) | payer MEDICARE ==
--- NOTE | 2019-06-04 14:27 | 2DMMODE ---
[place] [address] 2 D/M-MODE ECHOCARDIOGRAM Name: SALINA TRAN Room: [facility]#: [id number] Admission: 06/04/19 Attend Phys: Mell Layne Discharge: Date of : 52 Date of Service: 06/04/19 1427 Report #: [id number] THIS REPORT FOR: //name// APPROVED REPORT Study performed: 06/04/2019 11:08:53 EXAM: Comprehensive 2D, Doppler, and color-flow Echocardiogram Patient Location: Out-Patient BSA: 2.20 HR: 74 bpm BP: 135/65 mmHg Other Information Study Quality: Fair Indications Cardiomyopathy 2D Dimensions IVSd: 13.27 (7-11mm) LVOT Diam: 20.61 (18-24mm) LVDd: 49.67 mm PWd: 10.59 (7-11mm) Ascending Ao: 35.67 (22-36mm) LVDs: 41.62 (25-40mm) Aortic Root: 28.06 mm Volumes Left Atrial Volume (Systole) LA ESV Index: 24.20 mL/m2 Aortic Valve AoV Peak Abdifatah.: 1.33 m/s AO Peak Gr.: 7.03 mmHg LVOT Max P.27 mmHg AO Mean Gr.: 4.38 mmHg LVOT Mean P.05 mmHg LVOT Max V: 1.03 m/s AO V2 VTI: 25.92 cm LVOT Mean V: 0.65 m/s AUGUSTIN (VTI): 3.02 cm2 LVOT V1 VTI: 23.47 cm Mitral Valve E/A Ratio: 0.41 MV Decel. Time: 211.34 ms MV E Max Abdifatah.: 0.36 m/s MV PHT: 61.29 ms MVA (PHT): 3.59 [place]2 [place] [address] 2 D/M-MODE ECHOCARDIOGRAM Name: SALINA TRAN THANH Room: [facility]#: [id number] Admission: 06/04/19 Attend Phys: Mell Layne Discharge: Date of : 52 Date of Service: 06/04/19 1427 Report #: [id number] TDI E/Lateral E': 9.00 E/Medial E': 9.00 Medial E' Abdifatah.: 0.04 m/s Lateral E' Abdifatah.: 0.04 m/s Pulmonary Valve PV Peak Abdifatah.: 1.23 m/s PV Peak Gr.: 6.01 mmHg Tricuspid Valve RAP Estimate: 5.00 mmHg TR Peak Gr.: 26.48 mmHg RVSP: 31.48 mmHg PA Pressure: 31.48 mmHg Left Ventricle The left ventricle is normal size. There is normal LV segmental wall motion. There is normal left ventricular wall thickness. Left ventricular systolic function is mildly decreased. LVEF is 45-50%. Grade I - abnormal relaxation pattern. Right Ventricle The right ventricle is normal size. The right ventricular systolic function is normal. Atria The left atrium size is normal. The right atrium size is normal. Aortic Valve Mild aortic valve sclerosis. Trace aortic regurgitation. There is no aortic valvular stenosis. Mitral Valve The mitral valve is normal in structure. Mild mitral regurgitation. No evidence of mitral valve stenosis. Tricuspid Valve The tricuspid valve is normal in structure. Mild tricuspid regurgitation. Pulmonic Valve The pulmonary valve is normal in structure. Mild pulmonic regurgitation. Great Vessels The aortic root is normal in size. IVC is [place] [address] 2 D/M-MODE ECHOCARDIOGRAM Name: SALINA TRAN THANH Room: [facility] Man#: [id number] Admission: 06/04/19 Attend Phys: Mell Layne Discharge: Date of : 52 Date of Service: 06/04/19 1427 Report #: [id number] collapses >50% with inspiration. Pericardium There is no pericardial effusion. <Conclusion> The left ventricle is normal size. There is normal left ventricular wall thickness. Left ventricular systolic function is mildly decreased. LVEF is 45-50%. Grade I - abnormal relaxation pattern. The right ventricle is normal size. The left atrium size is normal. Mild aortic valve sclerosis. Trace aortic regurgitation. There is no aortic valvular stenosis. The mitral valve is normal in structure. Mild mitral regurgitation. The tricuspid valve is normal in structure. Mild tricuspid regurgitation. IVC is normal in size and collapses >50% with inspiration. There is no pericardial effusion. There is normal LV segmental wall motion. <ELECTRONICALLY SIGNED> By: Danny Leary MD, [facility] 06/04/19 1427 1427 1427 Danny Leary MD, [facility] /INF
== END ==
LOC: M.CRD 11:00
DX: I08.8 Other rheumatic multiple valve diseases (principal); I42.0 Dilated cardiomyopathy

== ENCOUNTER 2019-07-23 18:37 | Emergency (ER) | payer OTHER ==
[~2019-07-23] VITALS: Ht 175.3 cm; Wt 106.6 kg
[2019-07-23] MEDS ORDERED: CRESTOR20 MG PO (18:46)
[2019-07-23 21:20] VITALS: BP 175/85
== END 2019-07-23 21:10 | disposition home or self-care (01) ==
LOC: M.ERS 18:37
DX: M25.511 Pain in right shoulder (principal); M25.551 Pain in right hip; I13.2 Hypertensive heart and chronic kidney disease with heart failure and with stage 5 chronic kidney disease, or end stage renal disease; N18.6 End stage renal disease; I50.22 Chronic systolic (congestive) heart failure; G89.29 Other chronic pain; N40.0 Benign prostatic hyperplasia without lower urinary tract symptoms; E78.5 Hyperlipidemia, unspecified; M19.90 Unspecified osteoarthritis, unspecified site; E66.9 Obesity, unspecified; Z68.34 Body mass index [BMI] 34.0-34.9, adult; Z86.2 Personal history of diseases of the blood and blood-forming organs and certain disorders involving the immune mechanism; Z88.0 Allergy status to penicillin; Z88.5 Allergy status to narcotic agent

== ENCOUNTER → 2019-11-14 | Day surgery (SDC) | payer MEDICARE ==
--- NOTE | 2019-11-13 14:33 | EKG ---
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
[~2019-11-14] MED LIST changes: +CRESTOR20 MG PO; +FOSRENOL500 MG PO
--- NOTE | ~2019-11-14 | OP ---
[address] [address] OPERATIVE REPORT Name: SALINA TRAN THANH Room: [facility].#: [id number] Admission: 11/14/19 Attend Phys: Luis Sanford MD Discharge: Date of : 51 Report #: [id number] THIS REPORT FOR: //name// cc: Elidia Foote MD, Tuongvan T. MD ~ THIS REPORT FOR: //name// CC: Luis Foote DATE OF SERVICE: 11/14/2019 PREOPERATIVE DIAGNOSIS: End-stage renal disease with arteriovenous fistula that is nonfunctional. POSTOPERATIVE DIAGNOSIS: End-stage renal disease with arteriovenous fistula that is nonfunctional. PROCEDURE: Revision of arteriovenous fistula to arteriovenous fistula, right upper extremity. SURGEON: Luis Sanford MD NIGHT WAREHOUSE MANAGER: Dr. Kelley, Resident. COMPLICATIONS: None. ESTIMATED BLOOD LOSS: 10 mL. SPECIMEN: None. ANESTHESIA: General. SURGEON: Luis Sanfodr MD INDICATIONS FOR PROCEDURE: The patient is a very pleasant 69-year-old white male with end-stage renal disease, on dialysis. I previously placed a right upper extremity brachiocephalic AV fistula. While this did develop up, it has been unusable. The access of the fistula remained small. The remainder of the fistula dilated up and matured. He has undergone multiple balloon assisted maturations without effect. I discussed with him proceeding with further balloon assisted maturation versus replacement of the stenotic portion of the vein with a graft. At this point in time, he wishes to pursue that. I am in agreement to that as that is probably the most expeditious way to get a usable fistula access. Informed consent was obtained from the patient with risks including but not limited to bleeding, infection, need for further surgery, [address] [address] OPERATIVE REPORT Name: SALINA TRAN THANH Room: [facility]#: [id number] Admission: 11/14/19 Attend Phys: Luis Sanford MD Discharge: Date of : 52 Report #: [id number] pain, , heart attack, stroke, steal syndrome. The patient understood these risks and was agreeable to proceed. DESCRIPTION OF PROCEDURE: The patient was taken to the OR and placed in the supine position. After adequate general anesthesia was initiated, timeout was performed. The patient's right arm was prepped and draped in usual sterile fashion. We created a transverse incision over the AV fistula near the arterial anastomosis where the fistula had matured, as well as within the proximal upper arm where the vein was noted to be dilated as well. This was essentially above and below the area that was stenotic. We dissected out the vein at each of these locations, noted there was adequate caliber for anastomosis, tunneled a 7 mm Acuseal graft between the two incisions. I spatulated the free ends of the Acuseal graft. We spatulated the arterial limb of the fistula, ligating the venous outflow and created an end-to-end anastomosis with the graft in the distal incision. I used a 5-0 Prolene suture for the anastomosis. At completion of anastomosis, there was adequate hemostasis and excellent blood flow through the graft. I then transected the venous limb of the fistula. We oversewed the more distal aspect. I spatulated the free end, which was the venous outflow. I created an end-to-end anastomosis with the AV graft using a running 5-0 Prolene suture. At completion of anastomosis, there was adequate hemostasis and excellent blood flow through the AV graft with palpable thrill within the vein, proximal and distal to the graft. We irrigated with antibiotic saline. We controlled bleeding as needed with electrocautery, ties, clips and Andrew. Closed the wound in multiple layers using 3-0 Vicryl and 4-0 Monocryl. Incision was dressed with Dermabond. Both incisions were dressed with Dermabond. The patient tolerated the procedure well and was taken alert and awake to recovery room in good condition. All needle and instrument counts were correct at the end the case. By: [id number] Sanford MD /garcía
[2019-11-14 11:18] LABS: HEMATOCRIT 37.6 % (42.0-52.0); HEMOGLOBIN 12.9 gm/dL (14.0-18.0); MCH 35.1 pg (26.0-34.0); MCHC 34.2 g/dL (28.0-37.0); MCV 102.5 fL (80.0-100.0); MPV 8.3 fl. (7.2-11.1); RBC 3.67 mil/uL (4.50-6.00); RDW-CV 14.7 % (10.5-14.5); WBC 3.7 thou/uL (4.0-11.0)
[2019-11-14 11:29] LABS: CALCIUM 8.7 mg/dL (8.5-10.1); CREATININE 4.4 mg/dL (0.6-1.3); POTASSIUM 4.1 mmol/L (3.5-5.1)
[2019-11-14 11:33] LABS: ALBUMIN 4.1 g/dL (3.4-5.0); TOTAL BILIRUBIN 0.4 mg/dL (<0.1-1.0); TOTAL PROTEIN 8.2 g/dL (6.4-8.2)
== END | disposition home or self-care (01) ==
LOC: M.SUR 06:38
PROVIDERS: Surgery Vascular Surgery
DX: T82.510A Breakdown (mechanical) of surgically created arteriovenous fistula, initial encounter (principal); N18.6 End stage renal disease; Z98.890 Other specified postprocedural states; Z79.899 Other long term (current) drug therapy; Z96.653 Presence of artificial knee joint, bilateral; Z88.0 Allergy status to penicillin; Z88.8 Allergy status to other drugs, medicaments and biological substances; Y83.8 Other surgical procedures as the cause of abnormal reaction of the patient, or of later complication, without mention of misadventure at the time of the procedure

== ENCOUNTER 2019-11-22 21:18 | Inpatient (IN) | payer MEDICARE ==
[~2019-11-22] VITALS: Ht 175.3 cm; Wt 107.0 kg
[~2019-11-22 21:18] MED LIST changes: -COREG25 M1; +COREG25 M1 PO; -NORCO 5-325 TA1 EAC1 PO
[2019-11-22 21:23] VITALS: BP 200/79
[2019-11-22] MEDS ORDERED: PERCOCET 5-3251 EACH PO (21:28)
[2019-11-22 22:12] LABS: ABSOLUTE EOSINOPHILS 0.2 thou/uL (0.0-0.7); ABSOLUTE LYMPHOCYTES 1.9 thou/uL (0.8-5.3); ABSOLUTE MONOCYTES 0.7 thou/uL (0.0-1.2); ABSOLUTE NEUTROPHILS 3.9 thou/uL (1.6-8.1); BASOPHILS 0.5 %; EOSINOPHILS 3.1 %; HEMATOCRIT 33.2 % (42.0-52.0); HEMOGLOBIN 11.5 gm/dL (14.0-18.0); LYMPHOCYTES 27.9 %; MCH 35.7 pg (26.0-34.0); MCHC 34.6 g/dL (28.0-37.0); MONOCYTES 10.4 %; MPV 8.2 fl. (7.2-11.1); NUCLEATED RBCS 0 /100WBC; PLATELET COUNT* 209 thou/uL (150-400); POLYS 58.1 %; RBC 3.23 mil/uL (4.50-6.00); RDW-CV 14.5 % (10.5-14.5); WBC 6.7 thou/uL (4.0-11.0)
[2019-11-22 22:16] LABS: CALCIUM 8.2 mg/dL (8.5-10.1); CREATININE 8.6 mg/dL (0.6-1.3); POTASSIUM 5.1 mmol/L (3.5-5.1)
[2019-11-22 22:21] LABS: ALBUMIN 3.8 g/dL (3.4-5.0); TOTAL BILIRUBIN 0.3 mg/dL (<0.1-1.0); TOTAL PROTEIN 7.3 g/dL (6.4-8.2)
[2019-11-23 00:29] VITALS: BP 144/69
[2019-11-23 00:40] VITALS: BP 161/65
[2019-11-23 07:30] VITALS: BP 155/79
[2019-11-23 16:00] VITALS: BP 152/69
[2019-11-23 20:00] VITALS: BP 140/52
[2019-11-24 07:03] VITALS: BP 146/73
--- NOTE | 2019-11-24 15:23 | EKG ---
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
[2019-11-24 17:55] VITALS: BP 137/89
[2019-11-24 21:00] VITALS: BP 149/60
[2019-11-25 05:15] LABS: HEMATOCRIT 29.5 % (42.0-52.0); HEMOGLOBIN 10.1 gm/dL (14.0-18.0); MCH 35.6 pg (26.0-34.0); MCHC 34.3 g/dL (28.0-37.0); MCV 103.6 fL (80.0-100.0); MPV 8.2 fl. (7.2-11.1); RBC 2.84 mil/uL (4.50-6.00); RDW-CV 14.6 % (10.5-14.5); WBC 9.6 thou/uL (4.0-11.0)
[2019-11-25 05:32] LABS: CREATININE 7.8 mg/dL (0.6-1.3); POTASSIUM 5.3 mmol/L (3.5-5.1)
[2019-11-25] MEDS ORDERED: BENZONATATE100 MG PO (08:56)
[2019-11-25] MEDS ORDERED: PREDNISONE 10 M10 MG PO (08:56)
[2019-11-25] MEDS ORDERED: LEVAQUIN 500 M500 M1 PO (08:56)
[2019-11-25] MEDS ORDERED: MUCINEX600 MG PO (08:56)
[2019-11-25] MEDS ORDERED: NORCO 5-325 TA1 EAC1 PO (09:37)
[2019-11-25 10:39] VITALS: BP 149/60
[2019-11-25 11:53] VITALS: BP 149/60
[2019-11-25 12:02] VITALS: BP 149/60
--- NOTE | 2019-11-27 09:23 | CON ---
[address] [address] CONSULTATION Name: MARCSALINA THANH Room: [address] IN M.R.#: [id number] Admission: 11/23/19 Attend Phys: Ana M Chahal MD Discharge: 11/25/19 Date of : 52 Report #: [id number] THIS REPORT FOR: //name// cc: Elidia Foote MD, Tuongvan T. MD ~ THIS REPORT FOR: //name// CC: Ana M Foote DATE OF SERVICE: 11/24/2019 REQUESTING PHYSICIAN: Jasbir Heart MD REASON FOR CONSULTATION: Assist in providing dialysis. HISTORY OF PRESENT ILLNESS: The patient is a 69-year-old gentleman with medical history significant for end-stage renal disease and hypertension. The patient has been on dialysis since January of this year. He presents with complaints of some cough and shortness of breath. Today is his dialysis day. He normally dialyzes on Szqxnl-[id number]-Tgwkcb schedule at [facility]. Chest x-ray was done today, did not reveal much fluids, may be some mild pulmonary congestion. He was diagnosed with mild pulmonary congestion and probably some bronchitis and admitted to the hospital. PAST MEDICAL HISTORY: 1. End-stage renal disease. 2. Hypertension. 3. Obesity. FAMILY HISTORY: Noncontributory. SOCIAL HISTORY: No tobacco, no alcohol abuse. MEDICATIONS: Reviewed. PHYSICAL EXAMINATION: GENERAL: Awake, alert, oriented, no acute distress. VITAL SIGNS: Blood pressure 146/73, heart rate is 58, afebrile. HEENT: Pupils are round. NECK: Fatty. LUNGS: Decreased air movement. CARDIOVASCULAR: Regular rate. ABDOMEN: Obese. LOWER EXTREMITIES: No edema. [address] [address] CONSULTATION Name: SALINA TRAN Room: [address]#: [id number] Admission: 11/23/19 Attend Phys: Ana M Chahal MD Discharge: 11/25/19 Date of : 52 Report #: [id number] LABORATORY DATA: Hemoglobin 11.5. Potassium 5.1, BUN 51, creatinine 8.6. ASSESSMENT: 1. End-stage renal disease. 2. Respiratory distress, which is mild. 3. Hypertension. 4. Obesity. PLAN: Dialyze today. Dialysis via right upper arm AV graft. <ELECTRONICALLY SIGNED> By: Jonathan Brito MD 11/27/19 0923 1227 1238Amiladys Brito MD /nt
== END 2019-11-25 11:30 | disposition home or self-care (01) | DRG 177 ==
LOC: M.ERS 21:18 → M.TBA-ER 11-23 00:02 → M.3W 11-23 00:02
PROVIDERS: Emergency Medicine; Internal Medicine; ADMIT Internal Medicine
PROC: 5A1D70Z Performance of Urinary Filtration, Intermittent, Less than 6 Hours Per Day (ICD-10-PCS; principal; 2019-11-24)
DX: J15.6 Pneumonia due to other Gram-negative bacteria (principal); N18.6 End stage renal disease; I50.22 Chronic systolic (congestive) heart failure; I13.2 Hypertensive heart and chronic kidney disease with heart failure and with stage 5 chronic kidney disease, or end stage renal disease; G93.40 Encephalopathy, unspecified; F11.20 Opioid dependence, uncomplicated; E78.5 Hyperlipidemia, unspecified; J40 Bronchitis, not specified as acute or chronic; D63.1 Anemia in chronic kidney disease; Z96.653 Presence of artificial knee joint, bilateral; F41.1 Generalized anxiety disorder; E66.9 Obesity, unspecified; N40.0 Benign prostatic hyperplasia without lower urinary tract symptoms; G89.29 Other chronic pain; M19.90 Unspecified osteoarthritis, unspecified site; Z79.899 Other long term (current) drug therapy; Z79.82 Long term (current) use of aspirin; Z88.6 Allergy status to analgesic agent; Z88.5 Allergy status to narcotic agent; Z68.34 Body mass index [BMI] 34.0-34.9, adult; Z88.0 Allergy status to penicillin; Z79.51 Long term (current) use of inhaled steroids; Z99.2 Dependence on renal dialysis

== ENCOUNTER 2019-12-08 04:50 | Emergency (ER) | payer MEDICARE ==
[~2019-12-08] VITALS: Ht 175.3 cm; Wt 107.5 kg
[~2019-12-08 04:50] MED LIST changes: +BENZONATATE100 MG PO; +LEVAQUIN 500 M500 M1 PO; +MUCINEX600 MG PO; +NORCO 5-325 TA1 EAC1 PO; +PERCOCET 5-3251 EACH PO
[2019-12-08 05:19] LABS: URINE BILIRUBIN NEGATIVE (Negative); URINE BLOOD 1+ (Negative); URINE CLARITY CLEAR; URINE COLOR YELLOW; URINE GLUCOSE-RANDOM NEGATIVE (Negative); URINE KETONES NEGATIVE (Negative); URINE LEUKOCYTES-REFLEX NEGATIVE (Negative); URINE NITRITE-REFLEX NEGATIVE (Negative); URINE PROTEIN 2+ (Negative); URINE SPECIFIC GRAVITY 1.015 (1.005-1.030); URINE UROBILINOGEN 0.2 E.U./dl (0.2-1.0)
[2019-12-08 05:25] LABS: HEMATOCRIT 26.3 % (42.0-52.0); MCHC 34.1 g/dL (28.0-37.0); MCV 102.6 fL (80.0-100.0); MPV 7.7 fl. (7.2-11.1); NUCLEATED RBCS 0 /100WBC; PLATELET COUNT* 140 thou/uL (150-400); RBC 2.56 mil/uL (4.50-6.00); RDW-CV 14.4 % (10.5-14.5); WBC 7.8 thou/uL (4.0-11.0)
[2019-12-08 05:28] LABS: SQUAMOUS 0-3 Few /LPF (0-3)
[2019-12-08 05:29] LABS: BACTERIA-REFLEX 1-9 Few /HPF (None Seen); CRYSTALS None Seen /LPF (None Seen); FINE GRANULAR CASTS 0-3 Few /LPF (None Seen); HYALINE CASTS 0-3 Few /LPF (None Seen); MUCUS 0-3 Light strn/LPF (None Seen); URINE RBC 3-10 Few /HPF (0-2); URINE WBC-REFLEX 0-5 Rare /HPF (0-5)
[2019-12-08 05:31] LABS: CALCIUM 8.2 mg/dL (8.5-10.1); CREATININE 9.3 mg/dL (0.6-1.3); POTASSIUM 5.5 mmol/L (3.5-5.1)
[2019-12-08 05:35] LABS: ALBUMIN 3.4 g/dL (3.4-5.0); TOTAL BILIRUBIN 0.4 mg/dL (<0.1-1.0); TOTAL PROTEIN 6.7 g/dL (6.4-8.2)
[2019-12-08 06:11] LABS: ABSOLUTE LYMPHOCYTES 0.3 thou/uL (0.8-5.3); ABSOLUTE MONOCYTES 0.5 thou/uL (0.0-1.2)
[2019-12-08 06:13] LABS: HYPOCHROMASIA 1+; PLATELET ESTIMATE INCREASED
[2019-12-08 06:14] LABS: ANISOCYTOSIS Occasional
[2019-12-08] MEDS ORDERED: ZOFRAN ODT4 MG PO (06:22)
[2019-12-08 06:51] VITALS: BP 140/81
--- NOTE | 2019-12-08 16:29 | EKG ---
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 12/08/19 1628 0501 0501 Gonzalez Dukes MD, [facility] /EPI
== END 2019-12-08 06:51 | disposition home or self-care (01) ==
LOC: M.ERS 04:50
PROVIDERS: Emergency Medicine
DX: R11.2 Nausea with vomiting, unspecified (principal); R10.13 Epigastric pain; I13.2 Hypertensive heart and chronic kidney disease with heart failure and with stage 5 chronic kidney disease, or end stage renal disease; I50.22 Chronic systolic (congestive) heart failure; E78.5 Hyperlipidemia, unspecified; N18.6 End stage renal disease; M19.90 Unspecified osteoarthritis, unspecified site; G89.29 Other chronic pain; Z86.2 Personal history of diseases of the blood and blood-forming organs and certain disorders involving the immune mechanism; Z99.2 Dependence on renal dialysis; Z88.0 Allergy status to penicillin; Z88.6 Allergy status to analgesic agent

== ENCOUNTER → 2020-02-05 | Outpatient (CLI) | payer MEDICARE ==
[~2020-02-05] MED LIST changes: +ZOFRAN ODT4 MG PO
== END ==
LOC: M.ULTRA 16:00
DX: N32.89 Other specified disorders of bladder (principal); R16.1 Splenomegaly, not elsewhere classified; R11.2 Nausea with vomiting, unspecified

== ENCOUNTER → 2020-02-12 | Outpatient (CLI) | payer MEDICARE | LOC: M.NUC 07:45 → M.ULTRA 08:29 | DX: R10.9 Unspecified abdominal pain (principal) ==

== ENCOUNTER 2020-05-16 20:31 | Inpatient (IN) | payer MEDICARE ==
[~2020-05-16] VITALS: Ht 175.3 cm; Wt 108.0 kg
[~2020-05-16 20:31] MED LIST changes: +ADULT ASPIRIN R81 MG PO; -ASPIR 8181 M1 PO
[2020-05-16 20:35] VITALS: BP 153/85
[2020-05-16] MEDS ORDERED: HYDROXYZINE HCL10 M2 PO (20:39)
[2020-05-16] MEDS ORDERED: LAMOTRIGINE250 MG PO (20:40)
[2020-05-16] MEDS ORDERED: LIPITOR80 MG PO (20:41)
[2020-05-16] MEDS ORDERED: IMDUR 60 MG TAB60 M1 PO (20:41)
[2020-05-16 21:22] LABS: ABSOLUTE EOSINOPHILS 0.1 thou/uL (0.0-0.7); ABSOLUTE LYMPHOCYTES 1.2 thou/uL (0.8-5.3); ABSOLUTE MONOCYTES 0.6 thou/uL (0.0-1.2); ABSOLUTE NEUTROPHILS 3.5 thou/uL (1.6-8.1); BASOPHILS 0.6 %; EOSINOPHILS 2.6 %; HEMATOCRIT 35.5 % (42.0-52.0); HEMOGLOBIN 11.5 gm/dL (14.0-18.0); LYMPHOCYTES 21.1 %; MCH 31.9 pg (26.0-34.0); MCHC 32.5 g/dL (28.0-37.0); MCV 98.1 fL (80.0-100.0); MONOCYTES 11.3 %; MPV 8.7 fl. (7.2-11.1); NUCLEATED RBCS 0 /100WBC; PLATELET COUNT* 157 thou/uL (150-400); POLYS 64.4 %; RBC 3.61 mil/uL (4.50-6.00); RDW-CV 17.4 % (10.5-14.5); WBC 5.5 thou/uL (4.0-11.0)
[2020-05-16 21:22] LABS: BE -4.8 mmol/L (-2 to +3); PCO2 35.2 mmHg (35.0-45.0); PO2 87.9 mmHg (75.0-100.0); pH 7.368 (7.340-7.450)
[2020-05-16 21:34] LABS: CALCIUM 8.5 mg/dL (8.5-10.1)
[2020-05-16 21:36] LABS: POTASSIUM 8.4 mmol/L (3.5-5.1)
[2020-05-16 21:38] LABS: ALBUMIN 3.9 g/dL (3.4-5.0); MAGNESIUM 3.3 mg/dL (1.8-2.4); TOTAL BILIRUBIN 0.4 mg/dL (<0.1-1.0); TOTAL PROTEIN 6.8 g/dL (6.4-8.2)
[2020-05-16 23:01] VITALS: BP 134/80
[2020-05-17 03:10] LABS: HEMATOCRIT 35.4 % (42.0-52.0); HEMOGLOBIN 11.9 gm/dL (14.0-18.0); MCH 32.3 pg (26.0-34.0); MCHC 33.5 g/dL (28.0-37.0); MCV 96.3 fL (80.0-100.0); MPV 8.2 fl. (7.2-11.1); RBC 3.67 mil/uL (4.50-6.00); RDW-CV 17.5 % (10.5-14.5); WBC 5.2 thou/uL (4.0-11.0)
[2020-05-17 03:21] LABS: POTASSIUM 5.1 mmol/L (3.5-5.1)
[2020-05-17 03:24] LABS: ALBUMIN 3.8 g/dL (3.4-5.0); TOTAL BILIRUBIN 0.5 mg/dL (<0.1-1.0); TOTAL PROTEIN 6.8 g/dL (6.4-8.2)
[2020-05-17 08:05] VITALS: BP 165/78
[2020-05-17] MEDS ORDERED: LIPITOR80 MG PO ×2 (08:15→08:16)
[2020-05-17] MEDS ORDERED: ATIVAN0.5 M1 PO (08:22)
[2020-05-17] MEDS ORDERED: LAMICTAL150 MG PO (08:24)
[2020-05-17] MEDS ORDERED: HYDRALAZINE 2525 MG PO (08:29)
[2020-05-17] MEDS ORDERED: HYDRALAZINE 10M10 MG PO (08:32)
[2020-05-17 08:42] LABS: URINE BILIRUBIN NEGATIVE (Negative); URINE BLOOD TRACE (Negative); URINE CLARITY CLEAR; URINE COLOR YELLOW; URINE GLUCOSE-RANDOM TRACE (Negative); URINE KETONES NEGATIVE (Negative); URINE LEUKOCYTES-REFLEX NEGATIVE (Negative); URINE NITRITE-REFLEX NEGATIVE (Negative); URINE PROTEIN 1+ (Negative); URINE UROBILINOGEN 0.2 E.U./dl (0.2-1.0)
[2020-05-17 16:00] VITALS: BP 136/73
[2020-05-17 20:00] VITALS: BP 144/77
[2020-05-18] VITALS: BP 145/83
[2020-05-18 04:00] VITALS: BP 153/77
[2020-05-18 06:29] LABS: CALCIUM 8.9 mg/dL (8.5-10.1); CREATININE 4.8 mg/dL (0.6-1.3); MAGNESIUM 2.7 mg/dL (1.8-2.4); POTASSIUM 5.4 mmol/L (3.5-5.1)
[2020-05-18 07:40] VITALS: BP 130/64
--- NOTE | 2020-05-18 14:36 | EKG ---
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 : 1950 Requested By: Estefany Ely Order Number: [id number] MD: Danny Leary Measurements Intervals [place] Rate: 71 P: 49 [place]: 229 QRS: 24 QRSD: 133 T: 40 QT: 420 QTc: 457 Interpretive Statements Sinus rhythm Prolonged [place] interval Nonspecific intraventricular conduction delay Compared to ECG 12/08/2019 05:01:12 First degree AV block now present Intraventricular conduction delay now present Electronically Signed On 05-18-2020 14:35:53 CDT by Danny Leary [email or web address] <ELECTRONICALLY SIGNED> By: Danny Leary MD, [facility] 05/18/20 1435 38 38 Danny Leary MD, [facility] /EPI
[2020-05-18 15:55] VITALS: BP 149/76
[2020-05-18 19:50] VITALS: BP 132/63
[2020-05-19] VITALS: BP 135/68
[2020-05-19 04:00] VITALS: BP 109/89
[2020-05-19 07:45] LABS: CALCIUM 8.7 mg/dL (8.5-10.1)
[2020-05-19 07:46] LABS: CREATININE 6.6 mg/dL (0.6-1.3)
[2020-05-19 07:47] LABS: POTASSIUM 6.6 mmol/L (3.5-5.1)
[2020-05-19 08:00] VITALS: BP 137/72
[2020-05-19 19:40] VITALS: BP 132/63
[2020-05-19 23:45] VITALS: BP 125/61
[2020-05-20 03:45] VITALS: BP 129/66
--- NOTE | 2020-05-20 03:46 | CON ---
[address] [address] CONSULTATION Name: SALINA TRAN THANH Room: [place] [address] ADM IN M.R.#: [id number] Admission: 05/16/20 Attend Phys: Jasbir Heart MD Discharge: Date of : 52 Report #: [id number] THIS REPORT FOR: //name// cc: Elidia Foote MD, Tuongvan T. MD ~ THIS REPORT FOR: //name// CC: Jasbir Foote DATE OF SERVICE: 05/18/2020 HISTORY OF PRESENT ILLNESS: This 70-year-old male patient was evaluated by me for weakness. This patient was admitted with very high potassium. It was 8.4. He is a renal patient. He is being followed by Renal, but he was noticed to have weakness of all 4 extremities. He said this is going on since about Sunday. He does not think it has become any worse. They noticed weakness only in the legs, but when examination is done, he has weakness in all 4 extremities. It is more proximal than distal. His C-reactive protein is normal. His vitamin B12 was also normal. REVIEW OF SYSTEMS: Positive for being on dialysis. He does not have any respiratory difficulty. He does have some tremor. Review of systems is also positive for COPD, heart failure. He does have a low ejection fraction in the past. He has end-stage renal disease. His 14-point review of system was carried out and that is a relevant 14-point review of system. He says that he does not have diabetes. He is on Lamictal and Wellbutrin and he also takes Ativan p.r.n. at home. So I suspect he has a pretty significant psychiatric problem. PAST MEDICAL HISTORY: Positive for being on dialysis. FAMILY HISTORY: Unremarkable. SOCIAL HISTORY: He does not drink alcohol. PHYSICAL EXAMINATION: Indicate he is alert. He is responsive. He is able to follow simple and complex command. His cranial nerve examination appears mostly unremarkable. He is weak in all 4 extremities. His weakness is more prominent proximally than distally. His position sense in the lower extremities is intact, but reflexes are absent in lower extremities and even upper extremities. It is difficult to elicit. Position sense appeared to be present. Tone looks somewhat diminished in all 4 extremities, but I do not know what his baseline is. His cerebellar sign is difficult to tell because of this weakness. He does not think he has become any worse. There is no meningeal sign. There is no carotid bruit. He is able to hear things [place] [address] CONSULTATION Name: SALINA TRAN Room: [address] IN M.R.#: [id number] Admission: 05/16/20 Attend Phys: Jasbir Heart MD Discharge: Date of : 51 Report #: [id number] examination is unremarkable. Blood pressure is 149/76, respirations 18, pulse is 62, and temperature is 98.3. I got an MRI of the thoracic spine done and I got a CT scan done, they appeared unremarkable. IMPRESSION: Most likely, this patient has some myopathic changes secondary to severe hypokalemia. I do not believe this patient has any Guillain-Cadet syndrome, but we need to consider that. Similarly, spine lesions appear unlikely with normal sensation. I will reexamine the patient tomorrow. We will check a CPK and TSH and if he starts improving, may not have to do anything. If not, he will need an EMG, but that probably need to be done as an outpatient because we do not have any machine here. Thank you very much for this referral. I will discuss patient with you tomorrow. <ELECTRONICALLY SIGNED> By: Marcus Dill MD 05/20/20 0346 99 15Marcus Dill MD /nt
[2020-05-20 05:05] LABS: CALCIUM 8.7 mg/dL (8.5-10.1); MAGNESIUM 2.6 mg/dL (1.8-2.4)
[2020-05-20 05:11] LABS: POTASSIUM 5.5 mmol/L (3.5-5.1)
[2020-05-20 07:45] VITALS: BP 126/63
--- NOTE | 2020-05-20 10:17 | CON ---
[address] [address] CONSULTATION Name: SALINA TRAN THANH Room: [address] IN .R.#: [id number] Admission: 05/16/20 Attend Phys: Jasbir Heart MD Discharge: Date of : 51 Report #: [id number] THIS REPORT FOR: //name// cc: Elidia Foote MD, Tuongvan T. MD ~ THIS REPORT FOR: //name// CC: Jasbir Foote CONSULTING PHYSICIAN: Jasbir Heart MD REASON FOR CONSULTATION: End-stage kidney disease. HISTORY OF PRESENT ILLNESS: A 70-year-old gentleman with a history of end-stage kidney disease, on hemodialysis Sunday, Sunday and Sunday. Denies any missed dialysis session. Denies any constipation. Was found to have a markedly elevated potassium level on admission with a potassium of 8.4. He was recently eating more tomatoes and cantaloupe, but otherwise denies any other dietary indiscretion and denies any new medications. He had significant muscle weakness on admission. He was emergently dialyzed and again this morning to resume his normal routine. He is feeling somewhat better. He has no complaints at present time. REVIEW OF SYSTEMS: Constitutional, psych, heme, eyes, ENT, respiratory, cardiac, GI, , endocrine, all negative except as documented above. PAST MEDICAL HISTORY: End-stage kidney disease, on hemodialysis, dyslipidemia, history of systolic congestive heart failure with EF of 35%. SOCIAL HISTORY: No tobacco. FAMILY HISTORY: Not pertinent in this 70-year-old gentleman. CURRENT MEDICATIONS: Reviewed. PHYSICAL EXAMINATION: VITAL SIGNS: Blood pressure is 155/70, pulse 75, respirations 15, temperature 36.3. GENERAL: No acute distress. EYES: Open. EARS: Externally normal. NECK: Supple. CARDIOVASCULAR: Regular rate. LUNGS: No crackles. ABDOMEN: Soft. MUSCULOSKELETAL: [place] [address] CONSULTATION Name: SALINA TRAN THANH Room: [address] IN [facility].#: [id number] Admission: 05/16/20 Attend Phys: Jasbir Heart MD Discharge: Date of : 51 Report #: [id number] PSYCHIATRIC: Awake, alert. LABORATORY DATA: White cell count 5.2, hemoglobin 11.9, platelets 142. Sodium 135, potassium 5.1, chloride 96, bicarbonate 29, BUN 41, creatinine 5, albumin 3.8, glucose 75. ASSESSMENT: 1. End-stage kidney disease, hemodialysis Sunday, Sunday and Sunday at the [facility]. 2. Severe hyperkalemia with potassium of 8.4 on admission, likely due to intake of high potassium foods. 3. Hypertension. 4. Secondary hyperparathyroidism, on phosphate binders as an outpatient. 5. Chronic obstructive pulmonary disease. PLAN: 1. The patient tolerated dialysis today. We will follow for dialysis needs. 2. Low-potassium diet. 3. Anticipate next dialysis on Sunday. We will follow along with you. Please call with any questions in the interim. <ELECTRONICALLY SIGNED> By: Davis Wilder MD 05/20/20 1017 1429 [id number] Wilder MD /nt
[2020-05-20 11:08] VITALS: BP 126/63
== END 2020-05-20 18:45 | DRG 640 ==
LOC: M.ERS 20:31 → M.TBA-ER 21:59 → M.2W 21:59
PROVIDERS: Internal Medicine Nephrology; Personal Emergency Response Attendant; ADMIT Internal Medicine; ATTEND Internal Medicine
PROC: 5A1D70Z Performance of Urinary Filtration, Intermittent, Less than 6 Hours Per Day (ICD-10-PCS; principal; 2020-05-17)
PROC: 5A1D70Z Performance of Urinary Filtration, Intermittent, Less than 6 Hours Per Day (ICD-10-PCS; 2020-05-19)
PROC: 5A1D70Z Performance of Urinary Filtration, Intermittent, Less than 6 Hours Per Day (ICD-10-PCS; 2020-05-20)
DX: E87.5 Hyperkalemia (principal); N18.6 End stage renal disease; G92 Toxic encephalopathy; I50.22 Chronic systolic (congestive) heart failure; N25.81 Secondary hyperparathyroidism of renal origin; I13.2 Hypertensive heart and chronic kidney disease with heart failure and with stage 5 chronic kidney disease, or end stage renal disease; K92.2 Gastrointestinal hemorrhage, unspecified; F44.4 Conversion disorder with motor symptom or deficit; Z20.828 Contact with and (suspected) exposure to other viral communicable diseases; E78.5 Hyperlipidemia, unspecified; E66.9 Obesity, unspecified; G89.29 Other chronic pain; N40.0 Benign prostatic hyperplasia without lower urinary tract symptoms; M19.90 Unspecified osteoarthritis, unspecified site; Z60.2 Problems related to living alone; Z96.653 Presence of artificial knee joint, bilateral; J44.9 Chronic obstructive pulmonary disease, unspecified; D64.9 Anemia, unspecified; Z68.35 Body mass index [BMI] 35.0-35.9, adult; Z88.6 Allergy status to analgesic agent; Z88.0 Allergy status to penicillin; Z79.899 Other long term (current) drug therapy

== ENCOUNTER 2020-05-20 14:17 | Inpatient (IN) | payer MEDICARE ==
[~2020-05-20] VITALS: Ht 218 cm; Wt 101.5 kg
[~2020-05-20 14:17] MED LIST changes: +ATIVAN0.5 M1 PO; +HYDRALAZINE 10M10 MG PO; +HYDROXYZINE HCL10 M2 PO; +LAMICTAL150 MG PO; +LAMOTRIGINE250 MG PO
[2020-05-20 19:40] VITALS: BP 119/47
[2020-05-21 04:14] LABS: HEMATOCRIT 31.7 % (42.0-52.0); HEMOGLOBIN 10.7 gm/dL (14.0-18.0); MCH 32.2 pg (26.0-34.0); MCHC 33.6 g/dL (28.0-37.0); MCV 95.7 fL (80.0-100.0); MPV 9.5 fl. (7.2-11.1); RBC 3.31 mil/uL (4.50-6.00); RDW-CV 16.7 % (10.5-14.5); WBC 3.5 thou/uL (4.0-11.0)
[2020-05-21 04:29] LABS: CALCIUM 8.6 mg/dL (8.5-10.1)
[2020-05-21 08:00] VITALS: BP 139/74
[2020-05-21 08:38] VITALS: BP 139/74
[2020-05-21 20:17] VITALS: BP 127/54
[2020-05-22 05:13] LABS: CALCIUM 8.1 mg/dL (8.5-10.1); POTASSIUM 5.6 mmol/L (3.5-5.1)
[2020-05-22 05:29] LABS: CREATININE 6.7 mg/dL (0.6-1.3)
[2020-05-22 09:39] VITALS: BP 136/66
[2020-05-22 17:30] VITALS: BP 139/76
[2020-05-22 20:18] VITALS: BP 144/54
[2020-05-23 06:26] VITALS: BP 138/71
[2020-05-23 09:49] VITALS: BP 142/82
[2020-05-23 12:30] VITALS: BP 155/65
[2020-05-23 17:30] VITALS: BP 135/62
[2020-05-23 19:54] VITALS: BP 132/55
[2020-05-24 04:37] LABS: HEMATOCRIT 30.2 % (42.0-52.0); HEMOGLOBIN 10.1 gm/dL (14.0-18.0); MCH 32.1 pg (26.0-34.0); MCHC 33.6 g/dL (28.0-37.0); MCV 95.6 fL (80.0-100.0); RBC 3.16 mil/uL (4.50-6.00); RDW-CV 16.8 % (10.5-14.5); WBC 4.7 thou/uL (4.0-11.0)
[2020-05-24 05:11] LABS: CALCIUM 8.6 mg/dL (8.5-10.1); CREATININE 6.7 mg/dL (0.6-1.3); MAGNESIUM 2.9 mg/dL (1.8-2.4); POTASSIUM 5.3 mmol/L (3.5-5.1)
[2020-05-24 07:00] VITALS: BP 141/63
[2020-05-24 12:45] VITALS: BP 117/51
[2020-05-24 16:18] VITALS: BP 145/79
[2020-05-24 17:00] VITALS: BP 145/79
[2020-05-24 20:00] VITALS: BP 127/61
[2020-05-25 08:15] VITALS: BP 148/82
[2020-05-25 14:27] LABS: ALBUMIN 3.6 g/dL (3.4-5.0); CALCIUM 8.4 mg/dL (8.5-10.1); PHOSPHORUS* 7.4 mg/dL (2.5-4.9)
[2020-05-25 14:28] LABS: CREATININE 8.5 mg/dL (0.6-1.3)
[2020-05-25 14:29] LABS: POTASSIUM 6.1 mmol/L (3.5-5.1)
[2020-05-25 15:35] LABS: HEMATOCRIT 33.2 % (42.0-52.0); HEMOGLOBIN 11.1 gm/dL (14.0-18.0); MCH 32.3 pg (26.0-34.0); MCHC 33.4 g/dL (28.0-37.0); MCV 96.6 fL (80.0-100.0); RBC 3.44 mil/uL (4.50-6.00); RDW-CV 16.6 % (10.5-14.5); WBC 5.2 thou/uL (4.0-11.0)
[2020-05-25 20:38] LABS: CALCIUM 8.4 mg/dL (8.5-10.1)
[2020-05-25 20:39] LABS: CREATININE 4.3 mg/dL (0.6-1.3); POTASSIUM 3.8 mmol/L (3.5-5.1)
[2020-05-25 21:00] VITALS: BP 133/61
[2020-05-26 08:15] VITALS: BP 144/70
[2020-05-26 20:00] VITALS: BP 142/65
[2020-05-27 04:01] LABS: ABSOLUTE EOSINOPHILS 0.1 thou/uL (0.0-0.7); ABSOLUTE LYMPHOCYTES 1.2 thou/uL (0.8-5.3); ABSOLUTE MONOCYTES 0.6 thou/uL (0.0-1.2); ABSOLUTE NEUTROPHILS 3.2 thou/uL (1.6-8.1); BASOPHILS 0.7 %; EOSINOPHILS 2.4 %; HEMOGLOBIN 11.4 gm/dL (14.0-18.0); LYMPHOCYTES 24.1 %; MCHC 33.7 g/dL (28.0-37.0); MCV 95.1 fL (80.0-100.0); MONOCYTES 11.6 %; MPV 9.8 fl. (7.2-11.1); NUCLEATED RBCS 0 /100WBC; PLATELET COUNT* 104 thou/uL (150-400); POLYS 61.2 %; RBC 3.57 mil/uL (4.50-6.00); RDW-CV 17.1 % (10.5-14.5); WBC 5.2 thou/uL (4.0-11.0)
[2020-05-27 04:24] LABS: ALBUMIN 3.6 g/dL (3.4-5.0); CALCIUM 8.9 mg/dL (8.5-10.1); POTASSIUM 5.4 mmol/L (3.5-5.1); TOTAL BILIRUBIN 0.3 mg/dL (<0.1-1.0); TOTAL PROTEIN 6.8 g/dL (6.4-8.2)
[2020-05-27 04:29] LABS: CREATININE 6.9 mg/dL (0.6-1.3)
[2020-05-27 08:30] VITALS: BP 140/57
[2020-05-27 19:30] VITALS: BP 157/62
[2020-05-28 04:08] LABS: ABSOLUTE EOSINOPHILS 0.1 thou/uL (0.0-0.7); ABSOLUTE LYMPHOCYTES 0.8 thou/uL (0.8-5.3); ABSOLUTE MONOCYTES 0.5 thou/uL (0.0-1.2); ABSOLUTE NEUTROPHILS 2.6 thou/uL (1.6-8.1); BASOPHILS 0.8 %; HEMATOCRIT 28.9 % (42.0-52.0); HEMOGLOBIN 9.7 gm/dL (14.0-18.0); LYMPHOCYTES 20.9 %; MCHC 33.7 g/dL (28.0-37.0); MCV 94.9 fL (80.0-100.0); MONOCYTES 12.4 %; MPV 9.9 fl. (7.2-11.1); NUCLEATED RBCS 0 /100WBC; PLATELET COUNT* 103 thou/uL (150-400); POLYS 63.9 %; RBC 3.04 mil/uL (4.50-6.00); RDW-CV 17.1 % (10.5-14.5); WBC 4.1 thou/uL (4.0-11.0)
[2020-05-28 04:35] LABS: ALBUMIN 3.1 g/dL (3.4-5.0); CALCIUM 8.2 mg/dL (8.5-10.1); POTASSIUM 4.6 mmol/L (3.5-5.1); TOTAL BILIRUBIN 0.3 mg/dL (<0.1-1.0); TOTAL PROTEIN 6.1 g/dL (6.4-8.2)
[2020-05-28 04:40] LABS: CREATININE 4.5 mg/dL (0.6-1.3)
[2020-05-28 08:00] VITALS: BP 146/74
[2020-05-28 13:00] VITALS: BP 130/80
[2020-05-28 17:30] VITALS: BP 143/102
[2020-05-28 20:04] VITALS: BP 144/66
[2020-05-29 08:00] VITALS: BP 145/67
[2020-05-29 13:59] VITALS: BP 153/72
[2020-05-29 20:25] VITALS: BP 168/74
[2020-05-30 08:14] VITALS: BP 141/75
[2020-05-30 13:11] VITALS: BP 138/61
[2020-05-30 17:00] VITALS: BP 142/67
[2020-05-30 19:00] VITALS: BP 139/57
[2020-05-31 03:59] LABS: CALCIUM 8.8 mg/dL (8.5-10.1); POTASSIUM 4.8 mmol/L (3.5-5.1)
[2020-05-31 04:04] LABS: HEMATOCRIT 29.1 % (42.0-52.0); MCH 32.1 pg (26.0-34.0); MCHC 34.2 g/dL (28.0-37.0); MCV 93.8 fL (80.0-100.0); MPV 9.2 fl. (7.2-11.1); RBC 3.11 mil/uL (4.50-6.00); RDW-CV 16.7 % (10.5-14.5); WBC 4.7 thou/uL (4.0-11.0)
[2020-05-31 04:07] LABS: CREATININE 6.1 mg/dL (0.6-1.3)
[2020-05-31 07:56] VITALS: BP 153/83
[2020-05-31 13:00] VITALS: BP 138/57
[2020-05-31 17:00] VITALS: BP 136/67
[2020-05-31 19:00] VITALS: BP 142/62
[2020-06-01 03:50] LABS: CALCIUM 9.2 mg/dL (8.5-10.1); POTASSIUM 5.2 mmol/L (3.5-5.1)
[2020-06-01 04:07] LABS: CREATININE 7.4 mg/dL (0.6-1.3)
[2020-06-01 04:13] LABS: HEMATOCRIT 27.5 % (42.0-52.0); HEMOGLOBIN 9.3 gm/dL (14.0-18.0); MCH 31.7 pg (26.0-34.0); MCHC 33.9 g/dL (28.0-37.0); MCV 93.5 fL (80.0-100.0); MPV 9.3 fl. (7.2-11.1); RBC 2.95 mil/uL (4.50-6.00); RDW-CV 16.7 % (10.5-14.5); WBC 5.3 thou/uL (4.0-11.0)
[2020-06-01 07:57] VITALS: BP 133/63
[2020-06-01 19:00] VITALS: BP 141/62
[2020-06-02 08:11] VITALS: BP 138/71
[2020-06-02 10:20] LABS: ABSOLUTE EOSINOPHILS 0.1 thou/uL (0.0-0.7); ABSOLUTE LYMPHOCYTES 0.8 thou/uL (0.8-5.3); ABSOLUTE MONOCYTES 0.5 thou/uL (0.0-1.2); ABSOLUTE NEUTROPHILS 3.9 thou/uL (1.6-8.1); BASOPHILS 0.5 %; HEMATOCRIT 30.3 % (42.0-52.0); HEMOGLOBIN 10.3 gm/dL (14.0-18.0); LYMPHOCYTES 15.7 %; MCH 31.6 pg (26.0-34.0); MCHC 33.8 g/dL (28.0-37.0); MCV 93.3 fL (80.0-100.0); MONOCYTES 9.3 %; MPV 9.3 fl. (7.2-11.1); NUCLEATED RBCS 0 /100WBC; PLATELET COUNT* 111 thou/uL (150-400); POLYS 72.5 %; RBC 3.25 mil/uL (4.50-6.00); RDW-CV 17.1 % (10.5-14.5); WBC 5.4 thou/uL (4.0-11.0)
[2020-06-02 11:10] LABS: ALBUMIN 3.7 g/dL (3.4-5.0); CALCIUM 8.8 mg/dL (8.5-10.1); POTASSIUM 4.3 mmol/L (3.5-5.1); TOTAL BILIRUBIN 0.4 mg/dL (<0.1-1.0); TOTAL PROTEIN 6.9 g/dL (6.4-8.2)
[2020-06-02 19:30] VITALS: BP 140/93
[2020-06-03 08:00] VITALS: BP 141/69
[2020-06-03 20:06] VITALS: BP 153/62
[2020-06-04 07:30] VITALS: BP 154/61
[2020-06-04 13:59] VITALS: BP 133/56
[2020-06-04 17:59] VITALS: BP 143/62
[2020-06-04 21:17] VITALS: BP 149/59
[2020-06-05 07:30] VITALS: BP 147/76
[2020-06-05 07:49] VITALS: BP 147/76
[2020-06-05 20:18] VITALS: BP 132/66
[2020-06-06 07:30] VITALS: BP 144/69
[2020-06-06 19:24] VITALS: BP 136/60
[2020-06-07 07:46] VITALS: BP 139/56
[2020-06-07 14:19] LABS: HEMATOCRIT 27.9 % (42.0-52.0); HEMOGLOBIN 9.6 gm/dL (14.0-18.0); MCHC 34.3 g/dL (28.0-37.0); MCV 93.5 fL (80.0-100.0); MPV 8.6 fl. (7.2-11.1); RBC 2.99 mil/uL (4.50-6.00); RDW-CV 16.9 % (10.5-14.5); WBC 5.7 thou/uL (4.0-11.0)
[2020-06-07 14:33] LABS: ALBUMIN 3.7 g/dL (3.4-5.0); CALCIUM 8.8 mg/dL (8.5-10.1); POTASSIUM 5.2 mmol/L (3.5-5.1); TOTAL BILIRUBIN 0.3 mg/dL (<0.1-1.0); TOTAL PROTEIN 7.1 g/dL (6.4-8.2)
[2020-06-07 17:37] VITALS: BP 137/61
[2020-06-07 20:00] VITALS: BP 136/63
[2020-06-08 04:45] LABS: HEMATOCRIT 26.9 % (42.0-52.0); HEMOGLOBIN 9.2 gm/dL (14.0-18.0)
[2020-06-08 05:02] LABS: ALBUMIN 3.2 g/dL (3.4-5.0); CALCIUM 8.7 mg/dL (8.5-10.1); PHOSPHORUS* 7.1 mg/dL (2.5-4.9); POTASSIUM 5.8 mmol/L (3.5-5.1)
[2020-06-08 07:33] VITALS: BP 143/71
[2020-06-08 18:29] VITALS: BP 153/66
[2020-06-08 20:00] VITALS: BP 135/57
[2020-06-09 08:00] VITALS: BP 138/72
[2020-06-09 20:00] VITALS: BP 138/61
[2020-06-10 04:25] LABS: ALBUMIN 3.4 g/dL (3.4-5.0); CALCIUM 8.8 mg/dL (8.5-10.1); PHOSPHORUS* 6.7 mg/dL (2.5-4.9); POTASSIUM 5.2 mmol/L (3.5-5.1)
[2020-06-10 04:43] LABS: CREATININE 6.8 mg/dL (0.6-1.3)
[2020-06-10 08:00] VITALS: BP 138/65
[2020-06-10 20:13] VITALS: BP 124/56
[2020-06-11 08:30] VITALS: BP 141/70
[2020-06-11 20:00] VITALS: BP 133/77
[2020-06-12 04:15] LABS: ALBUMIN 3.3 g/dL (3.4-5.0); CALCIUM 8.8 mg/dL (8.5-10.1); CREATININE 6.3 mg/dL (0.6-1.3); PHOSPHORUS* 6.7 mg/dL (2.5-4.9)
[2020-06-12 07:54] VITALS: BP 146/74
[2020-06-12 17:12] VITALS: BP 145/72
[2020-06-12 20:00] VITALS: BP 134/62
[2020-06-13 07:56] VITALS: BP 133/56
[2020-06-13 17:00] VITALS: BP 141/74
[2020-06-13 20:00] VITALS: BP 153/99
[2020-06-14 04:31] LABS: HEMATOCRIT 28.3 % (42.0-52.0); HEMOGLOBIN 9.6 gm/dL (14.0-18.0); MCH 31.5 pg (26.0-34.0); MCHC 33.9 g/dL (28.0-37.0); MCV 92.8 fL (80.0-100.0); RBC 3.05 mil/uL (4.50-6.00); RDW-CV 17.1 % (10.5-14.5); WBC 5.5 thou/uL (4.0-11.0)
[2020-06-14 05:02] LABS: CALCIUM 8.8 mg/dL (8.5-10.1); CREATININE 6.9 mg/dL (0.6-1.3); MAGNESIUM 2.9 mg/dL (1.8-2.4); POTASSIUM 5.3 mmol/L (3.5-5.1)
[2020-06-14 07:00] VITALS: BP 144/65
[2020-06-14 12:21] VITALS: BP 124/51
[2020-06-14 17:00] VITALS: BP 143/67
[2020-06-14 19:00] VITALS: BP 132/51
[2020-06-15 04:58] LABS: HEMATOCRIT 26.3 % (42.0-52.0); HEMOGLOBIN 9.2 gm/dL (14.0-18.0)
[2020-06-15 05:04] LABS: ALBUMIN 3.3 g/dL (3.4-5.0); CALCIUM 8.7 mg/dL (8.5-10.1); PHOSPHORUS* 7.9 mg/dL (2.5-4.9); POTASSIUM 5.5 mmol/L (3.5-5.1)
[2020-06-15 05:15] LABS: CREATININE 8.6 mg/dL (0.6-1.3)
[2020-06-15 08:00] VITALS: BP 142/57
[2020-06-15 13:20] VITALS: BP 133/66
[2020-06-15 18:45] VITALS: BP 146/78
[2020-06-15 19:35] VITALS: BP 143/54
[2020-06-16 07:30] VITALS: BP 142/62
[2020-06-16 20:00] VITALS: BP 132/57
[2020-06-17 07:56] VITALS: BP 136/63
[2020-06-17 20:17] VITALS: BP 138/63
[2020-06-18 08:00] VITALS: BP 141/66; BP 150/77
[2020-06-18 14:00] VITALS: BP 133/45
[2020-06-18 17:30] VITALS: BP 138/65
[2020-06-18 19:30] VITALS: BP 134/57
[2020-06-19 08:00] VITALS: BP 138/62
[2020-06-19 15:54] LABS: % SATURATION 55 % (20-39); IRON 124 ug/dL (50-175)
[2020-06-19 20:00] VITALS: BP 144/59
[2020-06-20 08:00] VITALS: BP 142/53
[2020-06-20 20:00] VITALS: BP 142/67
[2020-06-21 03:50] LABS: HEMATOCRIT 25.3 % (42.0-52.0); HEMOGLOBIN 8.6 gm/dL (14.0-18.0); MCH 31.8 pg (26.0-34.0); MCHC 34.1 g/dL (28.0-37.0); MCV 93.2 fL (80.0-100.0); MPV 8.7 fl. (7.2-11.1); RBC 2.72 mil/uL (4.50-6.00); RDW-CV 17.7 % (10.5-14.5); WBC 6.8 thou/uL (4.0-11.0)
[2020-06-21 04:11] LABS: ALBUMIN 3.4 g/dL (3.4-5.0); CALCIUM 8.8 mg/dL (8.5-10.1); CREATININE 7.4 mg/dL (0.6-1.3); MAGNESIUM 2.9 mg/dL (1.8-2.4); POTASSIUM 5.4 mmol/L (3.5-5.1); TOTAL BILIRUBIN 0.6 mg/dL (<0.1-1.0); TOTAL PROTEIN 6.5 g/dL (6.4-8.2)
[2020-06-21 04:26] LABS: % SATURATION 49 % (20-39); IRON 115 ug/dL (50-175)
[2020-06-21 08:00] VITALS: BP 161/72
[2020-06-21 13:16] VITALS: BP 131/58
[2020-06-21 17:12] VITALS: BP 153/78
[2020-06-21 20:00] VITALS: BP 140/67
[2020-06-22 04:03] LABS: ABSOLUTE EOSINOPHILS 0.1 thou/uL (0.0-0.7); ABSOLUTE LYMPHOCYTES 1.3 thou/uL (0.8-5.3); ABSOLUTE MONOCYTES 0.7 thou/uL (0.0-1.2); ABSOLUTE NEUTROPHILS 5.5 thou/uL (1.6-8.1); BASOPHILS 0.4 %; EOSINOPHILS 1.6 %; HEMOGLOBIN 8.6 gm/dL (14.0-18.0); LYMPHOCYTES 16.7 %; MCH 31.7 pg (26.0-34.0); MCHC 34.3 g/dL (28.0-37.0); MCV 92.4 fL (80.0-100.0); MONOCYTES 8.8 %; MPV 8.9 fl. (7.2-11.1); NUCLEATED RBCS 0 /100WBC; PLATELET COUNT* 152 thou/uL (150-400); POLYS 72.5 %; RDW-CV 17.7 % (10.5-14.5); WBC 7.6 thou/uL (4.0-11.0)
[2020-06-22 04:30] LABS: ALBUMIN 3.5 g/dL (3.4-5.0); CALCIUM 8.8 mg/dL (8.5-10.1); POTASSIUM 5.6 mmol/L (3.5-5.1); TOTAL BILIRUBIN 0.7 mg/dL (<0.1-1.0); TOTAL PROTEIN 6.8 g/dL (6.4-8.2)
[2020-06-22 04:55] LABS: CREATININE 8.6 mg/dL (0.6-1.3)
[2020-06-22 08:30] VITALS: BP 147/64
[2020-06-22 19:00] VITALS: BP 149/61
[2020-06-23 04:11] LABS: ABSOLUTE EOSINOPHILS 0.2 thou/uL (0.0-0.7); ABSOLUTE LYMPHOCYTES 1.4 thou/uL (0.8-5.3); ABSOLUTE MONOCYTES 0.6 thou/uL (0.0-1.2); ABSOLUTE NEUTROPHILS 5.5 thou/uL (1.6-8.1); BASOPHILS 0.4 %; EOSINOPHILS 2.2 %; HEMATOCRIT 26.1 % (42.0-52.0); HEMOGLOBIN 8.9 gm/dL (14.0-18.0); LYMPHOCYTES 17.6 %; MCH 31.4 pg (26.0-34.0); MCV 92.2 fL (80.0-100.0); MONOCYTES 8.4 %; MPV 8.8 fl. (7.2-11.1); NUCLEATED RBCS 0 /100WBC; PLATELET COUNT* 146 thou/uL (150-400); POLYS 71.4 %; RBC 2.83 mil/uL (4.50-6.00); RDW-CV 17.1 % (10.5-14.5); WBC 7.7 thou/uL (4.0-11.0)
[2020-06-23 04:29] LABS: ALBUMIN 3.5 g/dL (3.4-5.0); CALCIUM 8.7 mg/dL (8.5-10.1); POTASSIUM 4.9 mmol/L (3.5-5.1); TOTAL BILIRUBIN 0.5 mg/dL (<0.1-1.0); TOTAL PROTEIN 6.8 g/dL (6.4-8.2)
[2020-06-23 04:48] LABS: CREATININE 5.1 mg/dL (0.6-1.3)
[2020-06-23 08:00] VITALS: BP 146/73
[2020-06-23] MEDS ORDERED: ANECREAM 4% KI1 EACH TOP (13:49)
[2020-06-23] MEDS ORDERED: ASPERCREME1 EACH TOP (13:51)
[2020-06-23] MEDS ORDERED: FLOMAX0.4 MG PO (13:55)
[2020-06-23] MEDS ORDERED: NORVASC 2.5 MG2.5 M1 PO (13:58)
[2020-06-23] MEDS ORDERED: EPOGEN10000 UNIT IV PUSH (14:00)
[2020-06-23] MEDS ORDERED: DULCOLAX STOOL100 M1 PO (14:07)
[2020-06-23 14:13] VITALS: BP 146/73
[2020-06-23 14:57] VITALS: BP 146/73
== END 2020-06-23 19:00 | disposition home health service (06) | DRG 91 ==
LOC: M.REH 14:17
PROVIDERS: Family Medicine; Internal Medicine; Internal Medicine Nephrology; Nurse Practitioner; ADMIT Physical Medicine & Rehabilitation; ATTEND Physical Medicine & Rehabilitation
PROC: 3E0U33Z Introduction of Anti-inflammatory into Joints, Percutaneous Approach (ICD-10-PCS; principal; 2020-05-17)
PROC: 5A1D70Z Performance of Urinary Filtration, Intermittent, Less than 6 Hours Per Day (ICD-10-PCS; 2020-06-01)
PROC: 5A1D70Z Performance of Urinary Filtration, Intermittent, Less than 6 Hours Per Day (ICD-10-PCS; 2020-06-03)
PROC: 5A1D70Z Performance of Urinary Filtration, Intermittent, Less than 6 Hours Per Day (ICD-10-PCS; 2020-06-05)
PROC: 5A1D70Z Performance of Urinary Filtration, Intermittent, Less than 6 Hours Per Day (ICD-10-PCS; 2020-06-10)
PROC: 5A1D70Z Performance of Urinary Filtration, Intermittent, Less than 6 Hours Per Day (ICD-10-PCS; 2020-06-12)
PROC: 5A1D70Z Performance of Urinary Filtration, Intermittent, Less than 6 Hours Per Day (ICD-10-PCS; 2020-06-15)
PROC: 5A1D70Z Performance of Urinary Filtration, Intermittent, Less than 6 Hours Per Day (ICD-10-PCS; 2020-06-17)
PROC: 5A1D70Z Performance of Urinary Filtration, Intermittent, Less than 6 Hours Per Day (ICD-10-PCS; 2020-06-19)
PROC: 5A1D70Z Performance of Urinary Filtration, Intermittent, Less than 6 Hours Per Day (ICD-10-PCS; 2020-06-22)
PROC: 5A1D70Z Performance of Urinary Filtration, Intermittent, Less than 6 Hours Per Day (ICD-10-PCS; 2020-06-23)
DX: G72.9 Myopathy, unspecified (principal); N18.6 End stage renal disease; G92 Toxic encephalopathy; I13.2 Hypertensive heart and chronic kidney disease with heart failure and with stage 5 chronic kidney disease, or end stage renal disease; I50.22 Chronic systolic (congestive) heart failure; N25.81 Secondary hyperparathyroidism of renal origin; G82.20 Paraplegia, unspecified; K92.2 Gastrointestinal hemorrhage, unspecified; E87.5 Hyperkalemia; R53.81 Other malaise; J44.9 Chronic obstructive pulmonary disease, unspecified; E66.9 Obesity, unspecified; E78.5 Hyperlipidemia, unspecified; N40.0 Benign prostatic hyperplasia without lower urinary tract symptoms; M19.90 Unspecified osteoarthritis, unspecified site; G89.29 Other chronic pain; Z96.653 Presence of artificial knee joint, bilateral; D63.1 Anemia in chronic kidney disease; E87.70 Fluid overload, unspecified; Z68.20 Body mass index [BMI] 20.0-20.9, adult; Z99.2 Dependence on renal dialysis; Z88.0 Allergy status to penicillin; Z88.6 Allergy status to analgesic agent; Z68.21 Body mass index [BMI] 21.0-21.9, adult; Z79.82 Long term (current) use of aspirin; Z79.899 Other long term (current) drug therapy

== ENCOUNTER → 2020-07-15 | Outpatient (CLI) | payer MEDICARE ==
[~2020-07-15] MED LIST changes: +ANECREAM 4% KI1 EACH TOP; +ASPERCREME1 EACH TOP; +DULCOLAX STOOL100 M1 PO; +NORVASC 2.5 MG2.5 M1 PO
== END ==
LOC: M.RAD 07-12 15:00
PROVIDERS: ATTEND Nurse Practitioner Family
DX: M85.88 Other specified disorders of bone density and structure, other site (principal)

== ENCOUNTER → 2020-08-25 | Outpatient (CLI) | payer MEDICARE ==
[~2020-08-25] MED LIST changes: +AZITHROMYCIN500 MG PO; +CEFDINIR300 MG PO; +VELTASSA8.4 GM PO
== END ==
LOC: M.ULTRA 12:19
PROVIDERS: ATTEND Family Medicine
DX: M79.604 Pain in right leg (principal); M79.605 Pain in left leg

== ENCOUNTER 2020-08-26 17:06 | Inpatient (IN) | payer MEDICARE ==
[~2020-08-26] VITALS: Ht 175.3 cm; Wt 99.3 kg
--- NOTE | ~2020-08-26 | CON ---
[address] [address] CONSULTATION Name: SALINA TRAN THANH Room: [address] IN M.R.#: [id number] Admission: 08/26/20 Attend Phys: Ana M Chahal MD Discharge: Date of : 51 Report #: [id number] THIS REPORT FOR: //name// cc: Elidia Foote MD, Tuongvan T. MD ~ DATE OF SERVICE: 08/27/2020 REQUESTING PHYSICIAN: Dr. Chahal. REASON FOR CONSULTATION: End-stage renal disease. The patient with hyperkalemia. HISTORY OF PRESENT ILLNESS: The patient is a very pleasant 70-year-old gentleman with medical history significant for end-stage renal disease. He is on chronic dialysis on Sunday, Sunday, Sunday schedule at [facility], Dr. Wilder center medical director of the unit. The patient presents with complaints of shortness of breath. He was found to be hyperkalemic, potassium was 6.3. His chest x-ray revealed some possible mild right lower lobe infiltrate and cardiomegaly. So, he was admitted, he started on Zithromax. He is using Zithromax and Rocephin for possible pneumonia. His COVID test was negative. PAST MEDICAL HISTORY: As I mentioned earlier. SOCIAL HISTORY: No tobacco, no alcohol abuse. FAMILY HISTORY: Noncontributory. MEDICATIONS: Reviewed. REVIEW OF SYSTEMS: Positive for dyspnea. PHYSICAL EXAMINATION: GENERAL: Awake, alert, oriented, no acute distress. VITAL SIGNS: Blood pressure 147/54, heart rate 68, afebrile. HEENT: Pupils are round. NECK: Supple. LUNGS: Decreased air movement, but fairly clear. CARDIOVASCULAR: Regular rate. ABDOMEN: Soft. EXTREMITIES: Lower extremities without edema. He has right upper arm AV graft. ASSESSMENT: 1. [place] [address] CONSULTATION Name: MARCSALINA THANH Room: [address]#: [id number] Admission: 08/26/20 Attend Phys: Ana M Chahal MD Discharge: Date of : 51 Report #: [id number] 2. Hypertension. 3. Hyperkalemia. 4. Possible right middle lobe pneumonia. PLAN: 1. Dialysis today. 2. Antibiotics per primary team. 3. For chronic potassium, we may consider giving him ____ on outpatient basis. By: 1035 1413Amiladys Brito MD /nt
[~2020-08-26 17:06] MED LIST changes: -AZITHROMYCIN500 MG PO; -CEFDINIR300 MG PO; -VELTASSA8.4 GM PO
[2020-08-26 17:09] VITALS: BP 179/82
[2020-08-26 17:52] LABS: ABSOLUTE BASOPHILS 0.1 thou/uL (0.0-0.2); ABSOLUTE EOSINOPHILS 0.2 thou/uL (0.0-0.7); ABSOLUTE LYMPHOCYTES 1.5 thou/uL (0.8-5.3); ABSOLUTE MONOCYTES 0.7 thou/uL (0.0-1.2); ABSOLUTE NEUTROPHILS 4.8 thou/uL (1.6-8.1); BASOPHILS 1.1 %; EOSINOPHILS 2.9 %; HEMATOCRIT 25.5 % (42.0-52.0); HEMOGLOBIN 8.5 gm/dL (14.0-18.0); LYMPHOCYTES 20.1 %; MCH 33.9 pg (26.0-34.0); MCHC 33.5 g/dL (28.0-37.0); MCV 101.2 fL (80.0-100.0); MONOCYTES 9.5 %; MPV 7.9 fl. (7.2-11.1); NUCLEATED RBCS 0 /100WBC; PLATELET COUNT* 240 thou/uL (150-400); POLYS 66.4 %; RBC 2.52 mil/uL (4.50-6.00); RDW-CV 16.4 % (10.5-14.5); WBC 7.3 thou/uL (4.0-11.0)
[2020-08-26 18:02] LABS: APTT 26.2 Seconds (25.0-31.3); PROTIME 10.3 Seconds (9.20-11.50)
[2020-08-26 19:00] LABS: ANION GAP 13 mmol/L (7-16); BUN 72 mg/dL (7-18); CALCIUM 8.8 mg/dL (8.5-10.1); CHLORIDE 99 mmol/L (98-107); CO2 23 mmol/L (21-32); CREATININE 8.2 mg/dL (0.6-1.3); GLUCOSE 100 mg/dL (70-99); SODIUM 135 mmol/L (136-145)
[2020-08-26 19:01] LABS: POTASSIUM 6.1 mmol/L (3.5-5.1)
[2020-08-26 19:26] LABS: ALBUMIN 3.9 g/dL (3.4-5.0); ALKALINE PHOSPHATASE 110 U/L (46-116); CK-MB MASS 1.5 ng/mL (<0.5-3.6); LIPASE 1063 U/L (73-393); MAGNESIUM 3.1 mg/dL (1.8-2.4); SGOT 19 U/L (15-37); SGPT 29 U/L (30-65); TOTAL BILIRUBIN 0.4 mg/dL (<0.1-1.0); TOTAL PROTEIN 7.3 g/dL (6.4-8.2)
[2020-08-26 19:46] LABS: NT-PRO BRAIN NAT PEPTIDE > 35000 pg/mL (<300)
[2020-08-26 21:30] VITALS: BP 168/72
[2020-08-26 21:47] VITALS: BP 165/71
[2020-08-27 04:00] VITALS: BP 147/54
[2020-08-27 08:00] VITALS: BP 152/49
[2020-08-27 09:01] LABS: HEMATOCRIT 24.9 % (42.0-52.0); HEMOGLOBIN 8.3 gm/dL (14.0-18.0); MCH 33.5 pg (26.0-34.0); MCHC 33.2 g/dL (28.0-37.0); MCV 100.9 fL (80.0-100.0); MPV 7.7 fl. (7.2-11.1); RBC 2.46 mil/uL (4.50-6.00); RDW-CV 16.2 % (10.5-14.5)
[2020-08-27 09:04] LABS: CALCIUM 8.7 mg/dL (8.5-10.1)
[2020-08-27 09:09] LABS: CREATININE 9.4 mg/dL (0.6-1.3)
[2020-08-27 09:10] LABS: POTASSIUM 6.3 mmol/L (3.5-5.1)
[2020-08-27 11:39] VITALS: BP 153/78
[2020-08-27 20:00] VITALS: BP 164/75
[2020-08-28] VITALS: BP 122/56
[2020-08-28 04:14] VITALS: BP 134/60
[2020-08-28 04:30] LABS: HEMATOCRIT 23.3 % (42.0-52.0); HEMOGLOBIN 7.9 gm/dL (14.0-18.0); MCH 33.5 pg (26.0-34.0); MCHC 33.9 g/dL (28.0-37.0); MCV 98.7 fL (80.0-100.0); MPV 7.9 fl. (7.2-11.1); RBC 2.36 mil/uL (4.50-6.00); RDW-CV 15.5 % (10.5-14.5); WBC 7.7 thou/uL (4.0-11.0)
[2020-08-28 05:00] LABS: ALBUMIN 3.4 g/dL (3.4-5.0); CALCIUM 8.7 mg/dL (8.5-10.1); MAGNESIUM 2.7 mg/dL (1.8-2.4); TOTAL BILIRUBIN 0.3 mg/dL (<0.1-1.0); TOTAL PROTEIN 6.3 g/dL (6.4-8.2)
[2020-08-28 05:04] LABS: CREATININE 6.5 mg/dL (0.6-1.3); POTASSIUM 4.9 mmol/L (3.5-5.1)
[2020-08-28] MEDS ORDERED: CEFDINIR300 MG PO (07:58)
[2020-08-28] MEDS ORDERED: VELTASSA8.4 GM PO (07:58)
[2020-08-28] MEDS ORDERED: AZITHROMYCIN500 MG PO (07:58)
[2020-08-28 11:09] VITALS: BP 138/50
[2020-08-28 11:49] VITALS: BP 104/45
[2020-08-28 17:35] VITALS: BP 150/64
[2020-08-28 21:06] VITALS: BP 120/66
[2020-08-29] VITALS: BP 129/46
[2020-08-29 04:00] VITALS: BP 154/76
[2020-08-29] MEDS ORDERED: HYDRALAZINE 2525 MG PO (07:21)
[2020-08-29 08:00] VITALS: BP 143/69
--- NOTE | 2020-08-29 11:56 | EKG ---
[place] [address] ELECTROCARDIOGRAM REPORT Name: SALINA TRAN Room: [address] ADM IN .R.#: [id number] Admission: 08/26/20 Attend Phys: Ana M Chahal, Discharge: Date of : 52 Date of Service: 08/26/20 1710 Report #: [id number] THIS REPORT FOR: //name// [facility] ED Test Date: 2020-08-26 Test Time: 17:10:50 Pat Name: SALINA TRAN Department: Room: [facility] Gender: M Speech And Language Tutor: TI : 1950 Requested By: Matt Lance Order Number: [id number] MD: Gomez Borrego Measurements Intervals [place] Rate: 92 P: 65 [place]: 189 QRS: 23 QRSD: 108 T: 47 QT: 385 QTc: 477 Interpretive Statements Sinus rhythm nonspecific st segment changes Borderline prolonged QT interval Compared to ECG 05/16/2020 20:39:28 no change Electronically Signed On 08-29-2020 11:56:39 WASH BOX OPERATOR by Gomez Borrego [email or web address] <ELECTRONICALLY SIGNED> By: Gomez Borrego MD, FACC 08/29/20 1156 1710 1710 Gomez Borrego MD, [facility] /EPI
[2020-08-29 15:34] VITALS: BP 143/69
== END 2020-08-29 15:45 | disposition home or self-care (01) | DRG 177 ==
LOC: M.ERS 17:06 → M.2W 18:44 → M.TBA-ER 18:44 → M.2W 21:48
PROVIDERS: Family Medicine; ADMIT Internal Medicine; ATTEND Internal Medicine
PROC: 5A1D70Z Performance of Urinary Filtration, Intermittent, Less than 6 Hours Per Day (ICD-10-PCS; principal; 2020-08-27)
DX: J15.6 Pneumonia due to other Gram-negative bacteria (principal); N18.6 End stage renal disease; I13.2 Hypertensive heart and chronic kidney disease with heart failure and with stage 5 chronic kidney disease, or end stage renal disease; I50.22 Chronic systolic (congestive) heart failure; E87.5 Hyperkalemia; E78.5 Hyperlipidemia, unspecified; G89.29 Other chronic pain; N40.0 Benign prostatic hyperplasia without lower urinary tract symptoms; M79.606 Pain in leg, unspecified; D63.1 Anemia in chronic kidney disease; M19.90 Unspecified osteoarthritis, unspecified site; I25.10 Atherosclerotic heart disease of native coronary artery without angina pectoris; Z20.828 Contact with and (suspected) exposure to other viral communicable diseases; Z96.653 Presence of artificial knee joint, bilateral; Z79.82 Long term (current) use of aspirin; Z79.899 Other long term (current) drug therapy; Z88.0 Allergy status to penicillin; Z88.5 Allergy status to narcotic agent; Z87.891 Personal history of nicotine dependence; Z99.2 Dependence on renal dialysis

== ENCOUNTER 2020-09-12 17:13 | Inpatient (IN) | payer OTHER ==
[~2020-09-12] VITALS: Ht 175.3 cm; Wt 95.8 kg
--- NOTE | ~2020-09-12 | PROC ---
[address] [address] PROCEDURE REPORT Name: SALINA TRAN Room: [address] IN M.R.#: [id number] Admission: 09/12/20 Attend Phys: Nanci Ross Discharge: Date of : 51 Report #: [id number] THIS REPORT FOR: cc: Elidia Foote MD, Tuongvan T. MD ~ [facility],Medical Records Staff For GI report, please see the PRovation report in Perceptive 7 content. By: 1450Medical Records Staff [facility] /DALIA
[~2020-09-12 17:13] MED LIST changes: +AZITHROMYCIN500 MG PO; +CEFDINIR300 MG PO; +VELTASSA8.4 GM PO
[2020-09-12 17:34] VITALS: BP 160/63
[2020-09-12 17:49] LABS: URINE BILIRUBIN NEGATIVE (Negative); URINE BLOOD TRACE (Negative); URINE CLARITY CLEAR; URINE COLOR YELLOW; URINE GLUCOSE-RANDOM NEGATIVE (Negative); URINE KETONES NEGATIVE (Negative); URINE LEUKOCYTES-REFLEX NEGATIVE (Negative); URINE NITRITE-REFLEX NEGATIVE (Negative); URINE PROTEIN 2+ (Negative); URINE UROBILINOGEN 0.2 E.U./dl (0.2-1.0)
[2020-09-12 17:58] LABS: HEMATOCRIT 32.5 % (42.0-52.0); HEMOGLOBIN 10.3 gm/dL (14.0-18.0); MCH 32.2 pg (26.0-34.0); MCHC 31.8 g/dL (28.0-37.0); MCV 101.5 fL (80.0-100.0); MPV 7.4 fl. (7.2-11.1); NUCLEATED RBCS 0 /100WBC; PLATELET COUNT* 340 thou/uL (150-400); RDW-CV 16.1 % (10.5-14.5); WBC 27.2 thou/uL (4.0-11.0)
[2020-09-12 18:00] LABS: SQUAMOUS >10 Many /LPF (0-3); URINE RBC 0-2 Rare /HPF (0-2); URINE WBC-REFLEX 0-5 Rare /HPF (0-5)
[2020-09-12 18:01] LABS: COARSE GRANULAR CASTS 0-3 Few /LPF (None Seen); HYALINE CASTS 0-3 Few /LPF (None Seen); MUCUS 0-3 Light strn/LPF (None Seen)
[2020-09-12 18:02] LABS: CRYSTALS None Seen /LPF (None Seen)
[2020-09-12 18:16] LABS: ALBUMIN 3.5 g/dL (3.4-5.0); CALCIUM 9.4 mg/dL (8.5-10.1); CREATININE 10.4 mg/dL (0.6-1.3); POTASSIUM 4.8 mmol/L (3.5-5.1); TOTAL BILIRUBIN 0.4 mg/dL (<0.1-1.0); TOTAL PROTEIN 8.1 g/dL (6.4-8.2)
[2020-09-12 18:58] LABS: ABSOLUTE LYMPHOCYTES 0.5 thou/uL (0.8-5.3); ABSOLUTE MONOCYTES 0.8 thou/uL (0.0-1.2); ABSOLUTE NEUTROPHILS 25.8 thou/uL (1.6-8.1); PLATELET ESTIMATE ADEQUATE
[2020-09-12 18:59] LABS: ANISOCYTOSIS Occasional
--- NOTE | 2020-09-12 21:59 | NUR ---
XRAY CONFIRMATION OF CENTRAL LINE PLACEMENT AND VERBAL ORDER TO USE CENTRAL LINE OBTAINED
[2020-09-12 23:44] VITALS: BP 153/63
[2020-09-13 03:46] VITALS: BP 156/72
[2020-09-13 08:00] VITALS: BP 127/56
--- NOTE | 2020-09-13 08:29 | NUR ---
PT'S DIALYSIS CLINIC CALLED TO CHECK ON PATIENT INQUIRING IF HE IS GOING TO BE ADMITTED.
--- NOTE | 2020-09-13 09:03 | NUR ---
ISOLATION CART FOR C.DIFF WAS MOVED IN FRONT OF PATIENT'S ROOM PER DR. BAILON'S ORDERS.
[2020-09-13 12:00] VITALS: BP 125/57
--- NOTE | 2020-09-13 14:22 | NUR ---
THE [place] [facility] IN [place], [place] WAS CONTACTED TO VERIFY THAT THE PATIENT DOES HAVE A PRESCRIPTION FOR PERCOCET 5-325MG TO TAKE THREE TIMES A DAY. THE PHARMACY DID CONFIRM THAT THE PATIENT HAS A PRESCRIPTION FOR PERCOCET 5-325 MG 2 TABS TO TAKE THREE TIMES A DAY NEEDED FOR PAIN. CONTACT PHONE NUMBER IS .
--- NOTE | 2020-09-13 14:29 | NUR ---
PT RECEIVES SCRIPTS MAILED TO HIM FOR CHRONIC ILLNESSES BY THE [facility]. [facility] ACUTE ILLNESSES.
--- NOTE | 2020-09-13 15:11 | EKG ---
[place] [address] ELECTROCARDIOGRAM REPORT Name: SALINA TRAN Room: [place] [address] ADM IN .R.#: [id number] Admission: 09/12/20 Attend Phys: Mc Khoury Discharge: Date of : 52 Date of Service: 09/12/201917 Report #: [id number] THIS REPORT FOR: //name// [facility] ED Test Date: 2020-09-12 Test Time: 19:18:10 Pat Name: SALINA TRAN Department: Room: [facility] Gender: M Press Operator Assistant: MR : 1950 Requested By: Radha Le Order Number: [id number] MD: Danny Leary Measurements Intervals [place] Rate: 87 P: 52 [place]: 168 QRS: 15 QRSD: 102 T: 60 QT: 381 QTc: 459 Interpretive Statements Sinus rhythm Probable left atrial enlargement Compared to ECG 08/26/2020 17:10:50 No significant changes Electronically Signed On 09-13-2020 15:10:58 PRODUCT DISTRIBUTION SPECIALIST by Danny Leary [email or web address] <ELECTRONICALLY SIGNED> By: Danny Leary MD, [facility] 09/13/20 1510 17 17 Danny Leary MD, [facility] /EPI
[2020-09-13 15:56] VITALS: BP 143/66
--- NOTE | 2020-09-13 20:30 | NUR ---
RECIEVED REPORT AND PT TO ROOM 215 AT 2000 FROM DIALYSIS. PT C/O SEVERE PAIN INTO BACK. PT CONSTANTLY FEELING THE NEED TO HAVE STOOLS AND ABD CRAMPING. REASSURANCE GIVEN. DISCUSSED EGD AND COLONOSCOPY. TELEMETRY APPLIED SHOWING ST. SEE ADMISSION ASSESSMENT AND HX. WILL CONT TO MONITOR AND ASSIST NEEDED.
[2020-09-13 21:00] VITALS: BP 118/53
[2020-09-14 06:07] LABS: ABSOLUTE LYMPHOCYTES 0.7 thou/uL (0.8-5.3); ABSOLUTE NEUTROPHILS 24.5 thou/uL (1.6-8.1); BASOPHILS 0.1 %; EOSINOPHILS 0.1 %; HEMATOCRIT 26.4 % (42.0-52.0); HEMOGLOBIN 8.7 gm/dL (14.0-18.0); LYMPHOCYTES 2.6 %; MCH 32.9 pg (26.0-34.0); MCV 99.6 fL (80.0-100.0); MONOCYTES 7.3 %; MPV 7.8 fl. (7.2-11.1); NUCLEATED RBCS 0 /100WBC; POLYS 89.9 %; RBC 2.65 mil/uL (4.50-6.00); WBC 27.2 thou/uL (4.0-11.0)
[2020-09-14 06:20] LABS: PLATELET COUNT* 250 thou/uL (150-400)
[2020-09-14 06:30] LABS: ALBUMIN 2.2 g/dL (3.4-5.0); CALCIUM 7.9 mg/dL (8.5-10.1); POTASSIUM 4.2 mmol/L (3.5-5.1); TOTAL BILIRUBIN 0.4 mg/dL (<0.1-1.0)
[2020-09-14 06:34] LABS: CREATININE 7.3 mg/dL (0.6-1.3)
--- NOTE | 2020-09-14 07:07 | NUR ---
FINALLY SLEPT AFTER APPROX 0200. PASSING GAS BUT NO FURTHER STOOLS THIS EVENING. NPO SINCE [place] FOR GI PROCEDURE THIS AM. PT HAS NOT BEEN PREPPED FOR POSS COLONOSCOPY. TELEMETRY CONT TO SHOW ST. C/O CONSTANT BACK PAIN WITH PO MEDS GIVEN. TELEMTETRY CONT TO SHOW ST. HS GOALS OF REST AND SAFETY ACHIEVED.
[2020-09-14 08:00] VITALS: BP 107/53
[2020-09-14 11:00] VITALS: BP 104/50
--- NOTE | 2020-09-14 14:08 | NUR ---
Pt is A&O. Resides at home alone. Independent. No DME. Hx of [facility]. No hx of SNF. Hx of ARU. Pt is current at [facility] on a MWF 530am schedule. [place] spoke with Samantha at [facility], Samantha informed that she is working to [facility] Pt to have colonscopy tomorrow. Anticipate dc in a few days.
[2020-09-14 16:58] VITALS: BP 93/42
--- NOTE | 2020-09-14 18:28 | NUR ---
THIS DISTILLERY MILLER ASSUMED CARE OF PT AT 0700 ASSESSMENT CHARTED PT STATED HE WASNT FEELING WELL AND IN PAIN MEDICATION GIVEN COLONSCOPY SCHEDULED FOR TODAY BUT CANCELLED DO TO NO BOWEL PREP RESCHEDULED FOR TOMORROW AND BOWEL PREP STARTED TODAY PT TOLERATING WELL
[2020-09-14 20:00] VITALS: BP 126/63
--- NOTE | 2020-09-14 20:00 | NUR ---
RECEIVED REPORT AND ASSUMED CARE OF PT, ASSESSMENT COMPLETED. PT STILL HAVING NAUSEA. WATERY STOOLS CONT WITH URGENCY FROM COLON PREP. PT REQUESTING PO PAIN MED AT BEDTIME FOR CHRONIC BACK PAIN. TELEMETRY ON SHOWING SR. WILL CONT TO MONITOR AND ASSIST NEEDED.
[2020-09-15 00:31] VITALS: BP 96/48
[2020-09-15 05:08] VITALS: BP 109/51
[2020-09-15 05:09] LABS: HEMATOCRIT 27.3 % (42.0-52.0); HEMOGLOBIN 8.8 gm/dL (14.0-18.0); MCH 32.1 pg (26.0-34.0); MCHC 32.2 g/dL (28.0-37.0); MCV 99.9 fL (80.0-100.0); MPV 8.1 fl. (7.2-11.1); NUCLEATED RBCS 0 /100WBC; PLATELET COUNT* 241 thou/uL (150-400); RBC 2.74 mil/uL (4.50-6.00); WBC 26.9 thou/uL (4.0-11.0)
[2020-09-15 05:37] LABS: ALBUMIN 2.1 g/dL (3.4-5.0); CALCIUM 8.3 mg/dL (8.5-10.1); POTASSIUM 3.6 mmol/L (3.5-5.1); TOTAL BILIRUBIN 0.3 mg/dL (<0.1-1.0); TOTAL PROTEIN 5.8 g/dL (6.4-8.2)
[2020-09-15 05:44] LABS: CREATININE 9.2 mg/dL (0.6-1.3)
[2020-09-15 05:50] LABS: PREALBUMIN 14.5 mg/dL (18.0-35.7)
--- NOTE | 2020-09-15 06:30 | NUR ---
AWAKE FREQ TONIGHT DUE TO COLON PREP. STOOLS ARE CLEAR. NPO SINCE [place] FOR COLONOSCOPY. TELEMETRY CONT TO SHOW SR. HS GOALS OF REST AND SAFETY ACHIEVED.
[2020-09-15 06:39] LABS: ABSOLUTE LYMPHOCYTES 1.3 thou/uL (0.8-5.3); ABSOLUTE NEUTROPHILS 25.6 thou/uL (1.6-8.1); ATYPICAL LYMPHS 1 %; METAMYELOCYTES 6 %; PLATELET ESTIMATE ADEQUATE
[2020-09-15 09:00] VITALS: BP 108/50
--- NOTE | 2020-09-15 09:46 | NUR ---
PT TO GI LAB WITH TRAIN DISPATCHER.
--- NOTE | 2020-09-15 11:11 | CON ---
[address] [address] CONSULTATION Name: SALINA TRAN THANH Room: [address] IN M.R.#: [id number] Admission: 09/12/20 Attend Phys: Nanci Ross Discharge: Date of : 52 Report #: [id number] THIS REPORT FOR: cc: Elidia Foote MD, Tuongvan T. MD ~ Rosa Lopez MD DATE OF SERVICE: 09/13/2020 GASTROENTEROLOGY CONSULTATION CONSULTING PHYSICIAN: Dr. Rick Lopez. The patient was seen and examined by me personally. HISTORY OF PRESENT ILLNESS: He states that last Sunday he began to have lower abdominal cramps and gas that was after a day or so relieved with a gas. He said he has had some liquid diarrhea at that point. He has not had a bowel movement since, complained of starting on Sunday, he had an increase in lower abdominal cramping, distention and pain. States that he normally takes docusate twice daily and that causes him to have daily bowel movements that are regularly soft, formed and brown. He recently had pneumonia on and received antibiotic therapy for that. When not feeling well, he went to an urgent care center and they told him that he had blood in his urine and told him to go to the Emergency Department. He then proceeded to await 1 day and came into the Emergency Department. He rates the pain as 7/10 to the abdomen and is nonradiating and rates the characteristic as stabbing. He has a history of an EGD and colonoscopy with our service in 2017. The EGD revealed erosive gastritis and a pillow sign lipoma in the anterior stomach. The colonoscopy revealed moderate sigmoid diverticulosis. He had 5 polyps removed of that 4 showed tubular adenomas. PAST MEDICAL HISTORY: Significant for end-stage renal disease, on dialysis Sunday, Sunday and Sunday; chronic systolic heart failure with an ejection fraction of 35%, anemia, chronic pain for which he takes narcotics for urinary retention, syncope, BPH, obesity, hypertension and hyperlipidemia. FAMILY HISTORY: Negative for any GI diseases and just has a grandfather who passed of lung cancer in his 80s. SOCIAL HISTORY: He does not smoke, drink or use illicit drugs. ALLERGIES: HE HAS A RASH WITH CODEINE AND PASSES OUT WHEN USING PENICILLINS. REVIEW OF SYSTEMS: A 12-point review of systems [place] [address] CONSULTATION Name: SALINA TRAN THANH Room: [address]#: [id number] Admission: 09/12/20 Attend Phys: Nanci Ross Discharge: Date of : 52 Report #: [id number] noted in HPI. PHYSICAL EXAMINATION: CARDIOVASCULAR: He is in normal sinus rhythm on the monitor and by EKG. Rate is regular, no murmurs noted. LUNGS: Clear to auscultation bilaterally and throughout all almanzar and currently on room air. ABDOMEN: Soft and nondistended. I do elicit pain under palpation in the right lower and left lower quadrants and tenderness in the right upper quadrant. VITAL SIGNS: Blood pressure was 154/76, heart rate was 87, pulse ox was 97% on room air, respirations were 16. LABORATORY DATA: Noted for BUN is 56, creatinine is 10.4, GFR is 5. Total bilirubin 0.4, AST 17, ALT 19, alkaline phosphatase 120. His white blood cell count is currently 27.2, hemoglobin is 10.3, platelet count is 340 and a moderate amount of bacteria seen in his UA along with blood. IMAGING: CT, impression was pancolitis with circumferential mural thickening and pericolonic inflammation, infectious versus inflammatory colitis is probably favored, but these findings are nonspecific. Mild distal colonic diverticulosis is present. ASSESSMENT: 1. Abdominal pain. 2. Constipation. 3. Possible colitis on CT scan. 4. End-stage renal disease, on dialysis Sunday, Sunday and Sunday. PLAN: 1. Colonoscopy possibly tomorrow, although he may require a 2-day bowel prep and coordination with dialysis. 2. Mild bowel prep today. 3. We will await timing for hemodialysis today and coordinate that with colonoscopy and possible EGD for tomorrow or Sunday. Thank you for allowing us to participate in the consultation of the patient. We will await scheduling of dialysis, so that we can coordinate colonoscopy. Please feel free to contact us with any further questions. <ELECTRONICALLY SIGNED> By: Rosa Lopez MD 09/15/20 1111 1250 [id number] Lopez MD /nt
--- NOTE | 2020-09-15 14:11 | NUR ---
Pt having colon today. Possible dc to home tomorrow. CM updated Samantha at [facility].
[2020-09-15 17:28] VITALS: BP 114/44
[2020-09-15 20:00] VITALS: BP 122/62
[2020-09-16] VITALS: BP 94/50
[2020-09-16 04:00] VITALS: BP 137/53
[2020-09-16 04:14] LABS: ABSOLUTE EOSINOPHILS 0.2 thou/uL (0.0-0.7); ABSOLUTE LYMPHOCYTES 1.2 thou/uL (0.8-5.3); ABSOLUTE MONOCYTES 1.6 thou/uL (0.0-1.2); BASOPHILS 0.1 %; EOSINOPHILS 0.8 %; MCH 32.4 pg (26.0-34.0); MCHC 32.3 g/dL (28.0-37.0); MCV 100.4 fL (80.0-100.0); MONOCYTES 6.3 %; MPV 7.9 fl. (7.2-11.1); NUCLEATED RBCS 0 /100WBC; PLATELET COUNT* 224 thou/uL (150-400); POLYS 87.8 %; RBC 2.78 mil/uL (4.50-6.00); RDW-CV 16.5 % (10.5-14.5)
[2020-09-16 04:34] LABS: CALCIUM 8.1 mg/dL (8.5-10.1); TOTAL BILIRUBIN 0.3 mg/dL (<0.1-1.0); TOTAL PROTEIN 5.6 g/dL (6.4-8.2)
[2020-09-16 04:48] LABS: PREALBUMIN 13.9 mg/dL (18.0-35.7)
[2020-09-16 04:51] LABS: CREATININE 5.5 mg/dL (0.6-1.3)
--- NOTE | 2020-09-16 07:11 | NUR ---
ASSUMED PT'S CARE BEGINNING OF HS SHIFT. ALERT AND ORIENTED. AD YANET. MEDS GIVEN PER EMAR. PRN PO PAIN MED UTILIZED THIS SHIFT. DIALYSIS YESTERDAY. CDIFF ISOLATION. CALL LIGHT WITHIN REACH. PT SLEPT WELL THIS SHIFT. WILL CONTINUE TO MONITOR.
[2020-09-16 08:04] VITALS: BP 113/49
--- NOTE | 2020-09-16 11:43 | NUR ---
ASSUMED CARE OF PT THIS AM AROUND 0715- BALE BREAKER OPERATOR IN PLACE ORDERED, TRACING SR- UPON ASSESSMENT PT NOTED TO BE RESTING IN BED- PT A&O X4- CONT OF B/B- UP AD-YANET IN ROOM, STEADY GAIT NOTED- LCTA, RESP EVEN AND UN-LABORED- VSS, O2 SAT 95% ON RA- ABD SOFT/TENDER. BS X4 QUADS- LOOSE BM REPORTED X2 THIS SHIFT- ISOLATION IN PLACE INDICATED R/T C-DIFF- PO VANC GIVEN THIS SHIFT ORDERED, FLAGLY IV PRESCRIBED- GOOD PO INTAKE NOTED THIS AM WITH BREAKFAST- PT REPORTS PAIN TO LOWER ABD AND BACK 04/09, PRN PERCOCET GIVEN THIS AM PER PT REQUEST AT 0954- LEFT SUB CLAV PICC NOTED C/D/I, SL- RUE FISTULA NOTED WITH POSITIVE THRILL/BRUIT- CALL LIGHT AND PERSONAL BELONGINGS WITH IN REACH- PT MAKES NEEDS KNOWN- ALL NEEDS MET AT THIS TIME-WCTM
[2020-09-16 12:00] VITALS: BP 102/48
--- NOTE | 2020-09-16 15:12 | NUR ---
Cdiff positive, CM updated [facility]. White count is up. Anticipate dc in a few days.
[2020-09-16 16:00] VITALS: BP 110/45
[2020-09-16 20:00] VITALS: BP 104/52
[2020-09-17] VITALS: BP 117/55
[2020-09-17 04:00] VITALS: BP 113/49
[2020-09-17 04:43] LABS: ABSOLUTE EOSINOPHILS 0.3 thou/uL (0.0-0.7); ABSOLUTE LYMPHOCYTES 1.6 thou/uL (0.8-5.3); ABSOLUTE MONOCYTES 1.6 thou/uL (0.0-1.2); BASOPHILS 0.2 %; EOSINOPHILS 1.4 %; HEMATOCRIT 27.5 % (42.0-52.0); HEMOGLOBIN 8.9 gm/dL (14.0-18.0); LYMPHOCYTES 7.3 %; MCH 32.6 pg (26.0-34.0); MCHC 32.3 g/dL (28.0-37.0); MCV 100.6 fL (80.0-100.0); MONOCYTES 7.6 %; MPV 8.3 fl. (7.2-11.1); NUCLEATED RBCS 0 /100WBC; PLATELET COUNT* 246 thou/uL (150-400); POLYS 83.5 %; RBC 2.73 mil/uL (4.50-6.00); RDW-CV 16.8 % (10.5-14.5); WBC 21.5 thou/uL (4.0-11.0)
[2020-09-17 05:06] LABS: PREALBUMIN 14.6 mg/dL (18.0-35.7)
[2020-09-17 05:25] LABS: ALBUMIN 2.1 g/dL (3.4-5.0); CALCIUM 7.8 mg/dL (8.5-10.1); POTASSIUM 3.8 mmol/L (3.5-5.1); TOTAL BILIRUBIN 0.3 mg/dL (<0.1-1.0); TOTAL PROTEIN 5.4 g/dL (6.4-8.2)
[2020-09-17 05:27] LABS: CREATININE 7.8 mg/dL (0.6-1.3)
--- NOTE | 2020-09-17 08:00 | NUR ---
AM ASSESSMENT COMPLETE, DEFER TO COMPUTER CHARTING. EM PHYSICIAN TRACKING SR/ST. ALERT ORIENTED, REPORTING HAVING DISCOMFORT IN BACK AND NECK WHICH HE STATES IS CHRONIC JUST RECEIVED PAIN MEDICATION EARLIER THIS AM. CALL LIGHT WITHIN REACH, WILL MONITOR.
--- NOTE | 2020-09-17 11:42 | NUR ---
Pt to have dialysis today. WBC elevated. Lots of stools. Remains on IVABX. Per Dr, no weekend dc planned. CM updated Samantha at [facility].
--- NOTE | 2020-09-17 14:52 | NUR ---
PATIENT HAVING DIALYSIS AT THIS TIME.
[2020-09-17 16:00] VITALS: BP 113/73
--- NOTE | 2020-09-17 16:59 | NUR ---
JOY LOADER TRACKING WITH NO CHANGE IN RHYTHM. UP IN CHAIR TODAY MOST OF SHIFT WHEN NOT HAVING DIALYSIS. GIVEN REPEAT PO PAIN MEDICATION FOR BACK PAIN - PATEINT REQUEST ANXIETY MED FEELING ANXIOUS WILL GIVE PER ORDERS. 2 LOOSE BM TODAY SO FAR DURING SHIFT. CALL LIGHT WITHIN REACH. WILL CONTINUE WITH PLAN OF CARE.
[2020-09-17 20:00] VITALS: BP 103/56
--- NOTE | 2020-09-17 20:00 | NUR ---
RECEIVED REPORT AND ASSUMED CARE OF PT, ASSESSMENT COMPLETED. PT STATES HIS BACK IS HURTING FROM SITTING ON BEDPAN IN DIALYSIS. TELEMETRY ON SHOWING SR. WILL CONT TO MONITOR AND ASSIST NEEDED.
[2020-09-17 23:55] VITALS: BP 110/80
[2020-09-18 03:24] VITALS: BP 114/53
[2020-09-18 06:30] LABS: HEMATOCRIT 28.9 % (42.0-52.0); HEMOGLOBIN 9.3 gm/dL (14.0-18.0); MCH 32.2 pg (26.0-34.0); MCV 100.7 fL (80.0-100.0); RBC 2.87 mil/uL (4.50-6.00); RDW-CV 16.3 % (10.5-14.5)
--- NOTE | 2020-09-18 06:30 | NUR ---
SLEPT WELL TONIGHT. GAIT STEADY TO AND FROM BR. CONT HAVING STOOLS. TELEMETRY SHOWING SR. NO CHANGE IN ASSESSMENT. HS GOALS OF REST AND SAFETY ACHIEVED. PO PAIN MEDS GIVEN FOR CHRONIC BACK PAIN AND EFFECTIVE.
[2020-09-18 06:50] LABS: CALCIUM 7.8 mg/dL (8.5-10.1); MAGNESIUM 2.3 mg/dL (1.8-2.4); POTASSIUM 3.9 mmol/L (3.5-5.1); TOTAL BILIRUBIN 0.3 mg/dL (<0.1-1.0); TOTAL PROTEIN 5.2 g/dL (6.4-8.2)
[2020-09-18 06:57] LABS: CREATININE 5.7 mg/dL (0.6-1.3)
[2020-09-18 08:30] VITALS: BP 110/75; BP 120/51
--- NOTE | 2020-09-18 12:12 | NUR ---
ASSUMED CARE OF PT AT APPROX 0745. PT SITTING UP IN RECLINER WAITING FOR BREAKFAST. A&0X4, COMPLAINS OF MILD PAIN TO BACK-TREATED BY NOC SHIFT AT APPROX 0730 WITH PARTIAL RELIEF-REFER TO EMAR. TRACING SR ON THE PRECISION LAYOUT WORKER. ON RA SAT UPPER 90'S. DENIES ANY SHORTNESS OF BREATH. PT IN SPECIAL CONTACT ISOLATION FOR CDIFF. PT STATES HE HAS HAD ABOUT 7 STOOLS IN THE LAST 24 HOURS. PT EDUCATED ON IMPORTANCE OF HYDRATION. PT UP AD YANET IN ROOM. PT GOAL FOR TODAY IS HYDRATION, PAIN MGMT, INCREASE ACTIVITY AND WORK WITH PHYSICAL THERAPY. AM ASSESSMENT CHARTED. MEDICATIONS PER NOV. PT REPOSITIONS SELF. HOURLY ROUNDING OBSERVED. BED IN LOW POSITION. CALL LIGHT WITHIN REACH. WILL CONTINUE PLAN OF CARE.
[2020-09-18 12:55] VITALS: BP 90/49
[2020-09-18 20:00] VITALS: BP 126/64
[2020-09-19] VITALS: BP 108/67
[2020-09-19 09:30] VITALS: BP 114/57
[2020-09-19 09:43] LABS: HEMATOCRIT 29.9 % (42.0-52.0); HEMOGLOBIN 9.6 gm/dL (14.0-18.0); MCH 32.4 pg (26.0-34.0); MCV 101.3 fL (80.0-100.0); MPV 8.4 fl. (7.2-11.1); RBC 2.95 mil/uL (4.50-6.00); RDW-CV 16.7 % (10.5-14.5); WBC 22.1 thou/uL (4.0-11.0)
[2020-09-19 09:58] LABS: ALBUMIN 2.1 g/dL (3.4-5.0); CALCIUM 8.3 mg/dL (8.5-10.1); MAGNESIUM 2.3 mg/dL (1.8-2.4); POTASSIUM 3.8 mmol/L (3.5-5.1); TOTAL BILIRUBIN 0.3 mg/dL (<0.1-1.0); TOTAL PROTEIN 5.2 g/dL (6.4-8.2)
[2020-09-19 10:01] LABS: CREATININE 7.6 mg/dL (0.6-1.3)
[2020-09-19 15:50] VITALS: BP 121/55
--- NOTE | 2020-09-19 16:41 | NUR ---
ASSUMED CARE OF PT AT 0730. PT UP IN CHAIR FOR MEALS. WORKED WITH PHYSICAL THERAPY THIS AFTERNOON-TOLERATED WELL. PT COMPLAINED OF PAIN THIS AFTERNOON-TREATED WITH PRN OXY WITH PARTIAL RELIEF. REFER TO EMAR. M/S STATUS. ON RA SAT UPPER 90'S. DENIES ANY SHORTNESS OF BREATH. PT UP AD YANET IN ROOM. PT STATES HE HAD 8 LOOSE STOOLS OVER THE LAST 24 HOURS. PT IN SPECIAL CONTACT ISOLATION FOR CDIFF. ISOLATION MAINTAINED. AM ASSESSMENT CHARTED. MEDICATIONS PER NOV. PT REPOSITIONS SELF. HOURLY ROUNDING OBSERVED. BED IN LOW POSITION. CALL LIGHT WITHIN REACH. WILL CONTINUE PLAN OF CARE.
[2020-09-19 20:00] VITALS: BP 135/63
--- NOTE | 2020-09-19 20:00 | NUR ---
RECEIVED REPORT AND ASSUMED CARE OF PT, ASSESSMENT COMPLETED. RESTING IN BED WATCHING TV. ANXIOUS ABOUT DISCHARGE STATING NO PLACE TO GO. WILL CONT TO MONITOR AND ASSIST NEEDED.
[2020-09-20] VITALS: BP 123/60
[2020-09-20 04:39] LABS: HEMATOCRIT 29.3 % (42.0-52.0); HEMOGLOBIN 9.4 gm/dL (14.0-18.0); MCHC 32.2 g/dL (28.0-37.0); MCV 99.5 fL (80.0-100.0); MPV 8.3 fl. (7.2-11.1); RBC 2.95 mil/uL (4.50-6.00); RDW-CV 16.9 % (10.5-14.5); WBC 18.8 thou/uL (4.0-11.0)
[2020-09-20 05:06] LABS: ALBUMIN 2.1 g/dL (3.4-5.0); CALCIUM 8.3 mg/dL (8.5-10.1); MAGNESIUM 2.6 mg/dL (1.8-2.4); TOTAL BILIRUBIN 0.4 mg/dL (<0.1-1.0); TOTAL PROTEIN 5.3 g/dL (6.4-8.2)
[2020-09-20 05:10] LABS: CREATININE 9.4 mg/dL (0.6-1.3)
--- NOTE | 2020-09-20 06:30 | NUR ---
SLEPT WELL TONIGHT. PT STATES 7 STOOLS TONIGHT AND WATERY. GAIT STEADY WITH WALKER. NO CHANGE IN ASSESSMENT. HS GOALS OF REST AND SAFETY ACHIEVED.
[2020-09-20 08:30] VITALS: BP 100/51
--- NOTE | 2020-09-20 12:13 | NUR ---
ASSUMED CARE OF PT AT 0730. PT SITTING IN RECLINER. A&0X4, COMPLAINS OF PAIN TO BACK-TREATED WITH PRN OXY WITH PARTIAL RELIEF. PT ANXIOUS THIS AM- UP TO BATHROOM AND INCONT OF BOWEL TO BATHROOM. ONE TIME DOSE OF ATIVAN GIVEN PER DR SANTA. REFER TO EMAR. MED SURG STATUS. ON RA SAT UPPER 90'S. DENIES ANY SHORTNESS OF BREATH. PT UP AD YANET IN ROOM. PT TO HAVE DIALYSIS TODAY- AM MEDS HELD TIL AFTER DIALYSIS. AM ASSESSMENT CHARTED. MEDICAITONS PER NOV. PT REPOSITIONS SELF. HOURLY ROUNDING OBSERVED. BED IN LOW POSITION. CALL LIGHT WITHIN REACH. PT TRANSFERRED TO ROOM 308 VIA WHEELCHAIR WITH ALL BELONGINGS AND CHART. REPORT GIVEN TO SHANI FRANCIS.
[2020-09-20 16:48] VITALS: BP 132/56
--- NOTE | 2020-09-20 19:06 | PATH ---
[address] [address] PATHOLOGY RPT PROCEDURE Name: SALINA DUMAS THANH Room: [address] IN .R.#: [id number] Admission: 09/12/20 Date of : 52 Discharge: Report #: [id number] Path Case #: [id number] [facility] Accession Number: [id number] . 01 Material submitted: . colon - RANDOM COLON BIOPSIES - HIGHLY SUSPICIOUS FOR INFECTIOUS COLITIS . 01 Clinician provided ICD-10: A41.9 N18.6 . 01 Clinical history: . SEPSIS, COLITIS, CHRONIC RENAL FAILURE . 02 Diagnosis: Large bowel "random colon", endoscopic biopsy: - Large bowel mucosa with focal mucosal surface sloughing, an associated surface exudate, focal areas of crypt ballooning, crypt degeneration, and marked acute inflammation. - Negative for dysplasia and malignancy. - Please see comment. . The findings are conveyed rto Dr. Rosa Lopez on 09/17/2020. (GISSEL:felton; 09/17/2020) MBR 09/20/2020 1817 Local . 02 Comment: The random colon biopsies show focal areas of severe active colitis, with patchy glandular dropout and marked acute cryptitis. The features are suggestive of infectious colitis, and given the surface exudate and overall pattern raises the question of Clostridium difficile. There is no evidence of dysplasia or malignancy. Please correlate clinically. (MLK:felton; 09/17/2020) . 02 Electronically signed: . Candice Muñoz MD, Pathologist NPI- [id number] . 01 Gross description: . The specimen is received in formalin, labeled "Salina Dumas, random colon biopsies" and consists of multiple fragments of flores tissue measuring 1.1 x 0.5 x 0.3 cm in aggregate which are entirely submitted in A1. (SDY; 09/16/2020) SYU/SYU 09/16/2020 1652 Local . 02 Pathologist provided ICD-10: K52.9 . 02 [place] [address] PATHOLOGY RPT PROCEDURE Name: SALINA DUMAS THANH Room: [address] IN .R.#: [id number] Admission: 09/12/20 Date of : 52 Discharge: Report #: [id number] Path Case #: [id number] [facility] . [id number] Specimen Comment: A courtesy copy of this report has been sent to [phone] Specimen Comment: [phone], Specimen Comment: Report sent to ,DR HUGHES / DR ANGULO Performed at: [address], [place], [place] [id number] MD Bryant Trejo MD Phone: [phone] Performed at: 02 [facility] [address], [place], [place] [id number] MD Jarek Jin MD Phone: [phone]
--- NOTE | 2020-09-20 19:47 | NUR ---
Pt A&O x4. Pt pleasant with staff. Isolation Precautions maintained. Pt up ad ronan using bathroom independently. Pt taking pain meds per MAR for chronic back pain. Pt did not have dialysis today. Someone from dialysis came and spoke to pt about having dialysis tomorrow instead. Pt in good mood and talkative with staff.
[2020-09-20 20:00] VITALS: BP 121/58
[2020-09-21 05:26] LABS: HEMATOCRIT 29.5 % (42.0-52.0); HEMOGLOBIN 9.4 gm/dL (14.0-18.0); MCH 31.9 pg (26.0-34.0); MCHC 31.9 g/dL (28.0-37.0); MCV 99.9 fL (80.0-100.0); MPV 8.1 fl. (7.2-11.1); RBC 2.95 mil/uL (4.50-6.00); RDW-CV 16.9 % (10.5-14.5); WBC 19.7 thou/uL (4.0-11.0)
--- NOTE | 2020-09-21 05:40 | NUR ---
ASSUMED PATIENT CARE AT 1900. PATIENT ALERT AND ORIENTED TIMES FOUR. MINOR COMPLAINTS OF PAIN. CONTROLLED WITH ORAL MEDICATION. CENTRAL LINE HARD TO PULL BLOOD FROM AT THIS TIME WITH ONLY ONE LUMEN OPERATING EFFICIENTLY. PACKAGE CRIMPER AND HOURLY ROUNDING COMPLETED CHARTED.
[2020-09-21 05:44] LABS: ALBUMIN 2.1 g/dL (3.4-5.0); CALCIUM 8.4 mg/dL (8.5-10.1); MAGNESIUM 2.8 mg/dL (1.8-2.4); POTASSIUM 4.3 mmol/L (3.5-5.1); TOTAL BILIRUBIN 0.5 mg/dL (<0.1-1.0); TOTAL PROTEIN 5.2 g/dL (6.4-8.2)
[2020-09-21 05:45] LABS: CREATININE 11.1 mg/dL (0.6-1.3)
[2020-09-21 08:00] VITALS: BP 132/70
--- NOTE | 2020-09-21 15:38 | NUR ---
Nutrition: screen for LOS. Pt with c-diff, infectious colitis. Also receives HD. Wt down several pounds from admit. No intake records. Had c/o up to 7 diarrhea stools per day; somewhat improved today. Pt also reports appetite improving, however, some foods just don't agree with him. Pt does not like Nepro, willing to try Ensure pudding. Prealbumin WNL, RFT's elevated. Meds reviewed. Pt assessed at mild nutrition risk.
[2020-09-21 16:13] VITALS: BP 123/77
--- NOTE | 2020-09-21 19:56 | NUR ---
Pt A&O x4 for entire shift. Pt pleasant with staff. Pt had dialysis this morning and tolerated well. Meds given per NOV. Pt spoke with infectious disease this afternoon to develop a plan. Pt reports having 7-8 loose stools per day. Pt states that today is the first day he noticed the stools beginning to form. The stool was a cottage cheese type consistency. Pt complained of heartburn, and Tums were ordered and administered.
[2020-09-21 22:30] VITALS: BP 112/61
--- NOTE | 2020-09-22 06:08 | NUR ---
PATIENT HAS SLEPT WELL THROUGHOUT MOST OF THE NIGHT. VSS ON RA. MEDICATIONS GIVEN ORDERED AND CHARTED. PATIENT STILL HAVING MULTIPLE LOOSE STOOLS. PATIENT REMAINS IN SPECIAL CONTACT ISOLATION D/T C-DIFF. PATIENT UP AD-YANET TO THE BATHROOM AND STEADY ON FEET. RIGHT UPPER ARM FISTULA WITH GOOD BRUIT AND THRILL. LEFT SUBCLAVIAN TRIPLE LUMEN-SL. PATIENT INSTRUCTED TO USE CALL LIGHT WHEN NEEDING ASSISTANCE. HOURLY ROUNDS MADE. WILL CONTINUE WITH PLAN OF CARE AND NURSING TO MONITOR.
[2020-09-22 06:34] LABS: ABSOLUTE BASOPHILS 0.1 thou/uL (0.0-0.2); ABSOLUTE EOSINOPHILS 0.1 thou/uL (0.0-0.7); ABSOLUTE LYMPHOCYTES 1.6 thou/uL (0.8-5.3); ABSOLUTE MONOCYTES 1.1 thou/uL (0.0-1.2); ABSOLUTE NEUTROPHILS 11.1 thou/uL (1.6-8.1); BASOPHILS 0.6 %; EOSINOPHILS 1.1 %; HEMATOCRIT 25.2 % (42.0-52.0); HEMOGLOBIN 8.2 gm/dL (14.0-18.0); LYMPHOCYTES 11.6 %; MCH 32.3 pg (26.0-34.0); MCHC 32.5 g/dL (28.0-37.0); MCV 99.3 fL (80.0-100.0); NUCLEATED RBCS 0 /100WBC; PLATELET COUNT* 256 thou/uL (150-400); POLYS 78.7 %; RBC 2.54 mil/uL (4.50-6.00); WBC 14.1 thou/uL (4.0-11.0)
[2020-09-22 06:39] LABS: ALBUMIN 1.8 g/dL (3.4-5.0); CALCIUM 8.1 mg/dL (8.5-10.1); MAGNESIUM 2.5 mg/dL (1.8-2.4); POTASSIUM 4.1 mmol/L (3.5-5.1); TOTAL BILIRUBIN 0.3 mg/dL (<0.1-1.0); TOTAL PROTEIN 4.7 g/dL (6.4-8.2)
[2020-09-22 07:40] VITALS: BP 124/62
[2020-09-22 17:09] VITALS: BP 116/57
--- NOTE | 2020-09-22 19:38 | NUR ---
Pt A&O x4 for entire shift. Pt pleasant with staff. Pt states he feels better today and has a better appetite. Patient notes fewer BMs today. Vital signs stable. Pt given pain meds per MAR for chronic back pain.
[2020-09-22 20:00] VITALS: BP 136/54
[2020-09-23 06:14] LABS: HEMOGLOBIN 8.4 gm/dL (14.0-18.0); MCH 32.1 pg (26.0-34.0); MCHC 32.1 g/dL (28.0-37.0); MCV 100.1 fL (80.0-100.0); MPV 7.7 fl. (7.2-11.1); RBC 2.6 mil/uL (4.50-6.00); RDW-CV 17.1 % (10.5-14.5); WBC 17.1 thou/uL (4.0-11.0)
--- NOTE | 2020-09-23 06:41 | NUR ---
PATIENT HAS SLEPT OFF AND ON DURING THE NIGHT BUT RESTLESS AT TIMES. VSS ON RA. MEDICATIONS GIVEN ORDERED AND CHARTED. ASSESSMENT CHARTED. PATIENT HAS HAD MULTIPLE LIQUID/LOOSE STOOLS DURING THE SHIFT. PATIENT REMAINS IN ISOLATION FOR C-DIFF. LEFT SUBCLAVIAN TRIPLE LUMEN-SL. RIGHT AV FISTULA HAS GOOD THRILL AND BRUIT. PATIENT IS TO HAVE DIALYSIS TODAY. PATIENT UP AD-YANET TO THE BATHROOM AND STEADY. PATIENT INSTRUCTED TO USE CALL LIGHT WHEN NEEDING ASSISTANCE. HOURLY ROUNDS MADE. WILL CONTINUE WITH PLAN OF CARE AND NURSING TO MONITOR.
[2020-09-23 06:44] LABS: ALBUMIN 1.9 g/dL (3.4-5.0); CALCIUM 8.2 mg/dL (8.5-10.1); MAGNESIUM 2.5 mg/dL (1.8-2.4); POTASSIUM 4.1 mmol/L (3.5-5.1); TOTAL BILIRUBIN 0.3 mg/dL (<0.1-1.0); TOTAL PROTEIN 4.9 g/dL (6.4-8.2)
[2020-09-23 06:47] LABS: CREATININE 8.9 mg/dL (0.6-1.3)
[2020-09-23 07:55] VITALS: BP 127/61
--- NOTE | 2020-09-23 12:54 | NUR ---
Dialysis today, plan next dialysis on Sunday. Plan home at id. to update [facility] BS
[2020-09-23 14:00] VITALS: BP 129/62
--- NOTE | 2020-09-23 16:02 | NUR ---
PATIENT HAD DILAYSIS THIS AM, 500ML REMOVED. UP AD YANET WITHOUT DIFFICULTY. PATIENT CONTINUES TO HAVE LOOSE STOOLS, DIFICID STARTED THIS SHIFT ORDERED. CENTRAL LINE DRESSING CHANGED PER PROTOCOL. PERCOCET GIVEN X 2 FOR BACK PAIN.
[2020-09-23 16:46] VITALS: BP 133/57
[2020-09-23 21:32] VITALS: BP 141/67
--- NOTE | 2020-09-24 04:47 | NUR ---
VERY PLEASANT UP AD YANET. GIVEN 2 PERCOCET FOR CHRONIC PAIN ON REQUEST. VSS. RECEIVED ALL MEDS SCHEDULED. ALERT, ORIENTED, ROOM AIR. INDEPENDENT. NO WORSENING OF CONDITION. DID HAVE SOME VOMITING BRIEFLY THAT WAS CLEAR AT BEGINNING OF SHIFT BUT NOT SINCE, SAYS THAT WAS NORMAL FOR HIM. HE HASNT BEEN EATING MUCH. DENIES NAUSEA. ENCOURAGED LIQUIDS/SNACKS. HE WILL ORDER BREAKFAST IN MORNING.
[2020-09-24 07:55] VITALS: BP 118/58
--- NOTE | 2020-09-24 17:58 | NUR ---
PATIENT ALERT AND ORIENTED X 4. VITAL SIGNS STABLE ON ROOM AIR. UP INDEPENDENTLY IN ROOM. CENTRAL LINE PATENT AND SALINE LOCKED. PAIN BEING MANAGED WITH PO MEDICATION. DENIES NAUSEA AT THIS TIME. ISOLATION PRECAUTIONS MAINTAINED. HOURLY ROUNDS MAINTAINED THROUGHOUT THE SHIFT. CALL LIGHT WITHIN REACH. NURSING WILL CONTINUE TO MONITOR.
[2020-09-24 20:50] VITALS: BP 116/68
[2020-09-25 04:18] LABS: HEMATOCRIT 25.8 % (42.0-52.0); HEMOGLOBIN 8.4 gm/dL (14.0-18.0); MCH 32.6 pg (26.0-34.0); MCHC 32.5 g/dL (28.0-37.0); MCV 100.3 fL (80.0-100.0); MPV 7.5 fl. (7.2-11.1); RBC 2.58 mil/uL (4.50-6.00); RDW-CV 17.8 % (10.5-14.5); WBC 11.2 thou/uL (4.0-11.0)
[2020-09-25 04:33] LABS: ALBUMIN 1.7 g/dL (3.4-5.0); CALCIUM 8.2 mg/dL (8.5-10.1); MAGNESIUM 2.4 mg/dL (1.8-2.4); POTASSIUM 4.3 mmol/L (3.5-5.1); TOTAL BILIRUBIN 0.3 mg/dL (<0.1-1.0); TOTAL PROTEIN 4.8 g/dL (6.4-8.2)
--- NOTE | 2020-09-25 04:33 | NUR ---
PATIENT HAS REMAINED ALERT AND ORIENTED X 4 THROUGHOUT THE SHIFT AND RESTING QUIETLY ON HOURLY ROUNDS. UP INDEPENDENTLY IN THE ROOM. ISSUE WITH HEARTBURN AND NAUSEA LATE EVENING. PATIENT THINKS IT WAS THE FISH HE HAD FOR SUPPER. RESOLVED AFTER ONE DOSE TUMS AND ONE DOSE ZOFRAN. PATIENT REPORTS IMPROVEMENT IN NUMBER OF BM'S OVERNIGHT WITH CURRENT COUNT FROM START OF SHIFT AT 4. VITAL SIGNS STABLE. MEDICATIONS PER ORDER. DIALYSIS PLANNED FOR THIS MORNING. PATIENT KEEPS HIS ORAL INTAKE AROUND 1500 ML/24HRS THOUGH NO SPECIFIC RESTRICTION IS CURRENTLY ORDERED. CONTINUE TO MONITOR.
[2020-09-25 04:35] LABS: CREATININE 7.7 mg/dL (0.6-1.3)
--- NOTE | 2020-09-25 06:53 | NUR ---
UPDATE ON TOTAL STOOLS FOR THE SHIFT NOW 6.
[2020-09-25 07:30] VITALS: BP 113/55
--- NOTE | 2020-09-25 12:48 | NUR ---
pt taken to dialysis room at this time.
[2020-09-25 16:05] VITALS: BP 145/93
[2020-09-25 16:30] VITALS: BP 136/78
[2020-09-25 19:48] VITALS: BP 111/48
--- NOTE | 2020-09-25 20:03 | NUR ---
A&OX 4, PWD. LUNGS CLEAR, HEART TONES REG. +BS X 4 QUADS. RIGHT UPPER ARM WITH FISTULA. + BRUIT AND THRILL. PEDAL PULSES PRESENT. C/O BACK PAIN AND ANXIETY AND RECEIVED MEDICATION PER E-MAR. PT STAYS ON 1500 FLUID RESTRICTION THAT HE MANAGES HIMSELF. PT STATED HE HAD ABOUT 7 DIARRHEA STOOLS TODAY. HE DID NOT LEFT ME SEE THEM. PT UP AD YANET IN ROOM WITH STEADY GAIT. STILL ON ISOLATION FOR C-DIFF. LEFT CHEST TRIPLE LUMEN CENTRAL LINE AND ALL PIG TAILS FLUSH WITHOUT DIFFICULTY. CALL LIGHT WITHIN REACH. NO OTHER C/O AT THIS TIME. WILL CONTINUE TO MONITOR.
--- NOTE | 2020-09-26 04:46 | NUR ---
PATIENT SLEPOT WELL DURING THIS SHIFT. PT REQUESTED PAIN MEDICATION X1 AND RECEIVED TWO PERCOCET FOR BACK PAIN. PT RETURNED TO SLEEP AFTER TAKING MEDS. PT UP TO BATHROOM WITH STEADY GAIT TO VOID AND HAS HAD THREE BOWEL MOVEMENTS DURING THIS SHIFT. PT WITH TRIPLE LUMAN PICC IN LT CHEST; ABLE TO FLUSH/DRAW WITH NO RESISTANCE. PT WITH DIALYSIS LINE IN RT UPPER ARM. PT DENIES NEEDS AT THIS TIME. FREQUENTLY USED ITEMS AND CALL LIGHT WITHIN REACH. SIDERAILS UPX2. WILL CONTINUE TO MONITOR.
[2020-09-26 06:09] LABS: HEMATOCRIT 23.9 % (42.0-52.0); HEMOGLOBIN 7.8 gm/dL (14.0-18.0); MCH 32.7 pg (26.0-34.0); MCHC 32.8 g/dL (28.0-37.0); MCV 99.8 fL (80.0-100.0); MPV 7.5 fl. (7.2-11.1); NUCLEATED RBCS 0 /100WBC; PLATELET COUNT* 374 thou/uL (150-400); RDW-CV 17.7 % (10.5-14.5); WBC 8.4 thou/uL (4.0-11.0)
[2020-09-26 06:21] LABS: ALBUMIN 1.7 g/dL (3.4-5.0); CALCIUM 8.1 mg/dL (8.5-10.1); POTASSIUM 4.2 mmol/L (3.5-5.1); TOTAL BILIRUBIN 0.3 mg/dL (<0.1-1.0); TOTAL PROTEIN 4.6 g/dL (6.4-8.2)
[2020-09-26 06:24] LABS: CREATININE 5.5 mg/dL (0.6-1.3)
[2020-09-26 06:57] LABS: ABSOLUTE EOSINOPHILS 0.6 thou/uL (0.0-0.7); ABSOLUTE LYMPHOCYTES 0.9 thou/uL (0.8-5.3); ABSOLUTE MONOCYTES 0.8 thou/uL (0.0-1.2); ABSOLUTE NEUTROPHILS 6.1 thou/uL (1.6-8.1)
[2020-09-26 06:58] LABS: ANISOCYTOSIS 1+; PLATELET ESTIMATE ADEQUATE
[2020-09-26 07:53] VITALS: BP 129/54
[2020-09-26 16:42] VITALS: BP 110/60
--- NOTE | 2020-09-26 17:03 | NUR ---
PATIENT ALERT AND ORIENTED X 4. VITAL SIGNS STABLE ON ROOM AIR. AFEBRILE. UP INDEPENDENTLY AND AMBULATING IN ROOM. CENTRAL LINE PATENT AND SALINE LOCKED. PAIN BEING MANAGED WITH PO MEDICATION. DENIES NAUSEA AT THIS TIME. STOOLS ARE LESS FREQUENT. TOLERATING DIET. ISOLATION PRECAUTIONS MAINTAINED. HOURLY ROUNDS MAINTAINED THROUGHOUT THE SHIFT. CALL LIGHT WITHIN REACH. NURSING WILL CONTINUE TO MONITOR.
[2020-09-26 20:00] VITALS: BP 122/58
--- NOTE | 2020-09-27 04:19 | NUR ---
PT A&O X 4, ON RA. MEDS GIVEN ORDERED. PAIN MANAGED WITH PERCOCET. PT UP INDEPENDENTLY IN ROOM. 1500ML FLUID RESTRICTION, ISOLATION MAINTAINED. WILL COTNINUE TO MONITOR.
[2020-09-27 07:49] VITALS: BP 129/62
[2020-09-27 08:06] LABS: ABSOLUTE BASOPHILS 0.1 thou/uL (0.0-0.2); ABSOLUTE EOSINOPHILS 0.2 thou/uL (0.0-0.7); ABSOLUTE LYMPHOCYTES 1.3 thou/uL (0.8-5.3); ABSOLUTE MONOCYTES 0.8 thou/uL (0.0-1.2); ABSOLUTE NEUTROPHILS 5.6 thou/uL (1.6-8.1); EOSINOPHILS 1.9 %; HEMATOCRIT 24.1 % (42.0-52.0); HEMOGLOBIN 7.9 gm/dL (14.0-18.0); LYMPHOCYTES 16.5 %; MCH 32.7 pg (26.0-34.0); MCHC 32.7 g/dL (28.0-37.0); MCV 99.9 fL (80.0-100.0); MONOCYTES 10.4 %; MPV 7.4 fl. (7.2-11.1); NUCLEATED RBCS 0 /100WBC; PLATELET COUNT* 411 thou/uL (150-400); POLYS 70.2 %; RBC 2.41 mil/uL (4.50-6.00); RDW-CV 17.9 % (10.5-14.5)
[2020-09-27 08:13] LABS: ALBUMIN 1.7 g/dL (3.4-5.0); CALCIUM 8.2 mg/dL (8.5-10.1); POTASSIUM 4.3 mmol/L (3.5-5.1); TOTAL BILIRUBIN 0.3 mg/dL (<0.1-1.0); TOTAL PROTEIN 4.7 g/dL (6.4-8.2)
[2020-09-27 08:14] LABS: CREATININE 7.9 mg/dL (0.6-1.3)
[2020-09-27] MEDS ORDERED: DIFICID200 MG PO (09:48)
--- NOTE | 2020-09-27 12:38 | NUR ---
PT.WAS TO DISCHARGE TODAY HOME WITH HOME HEALTH. WHEN SPOKE WITH HIM, HE SAID HIS SISTER THAT IS COMIING TO STAY WITH HIM AND HELP HIM HAD NOT MADE IT IN FROM [place] YET. HE SAID SHE NOW IS SUPPOSED TO ARRIVE TOMORROW.TO HOLD DISCHARGE ONE MORE DAY, PT.NOT SAFE TO DISCHARGE ALONE. HE WANTS TO GET HOME HEALTH SET UP THROUGH THE [facility].
[2020-09-27 15:03] VITALS: BP 152/62
[2020-09-27 16:33] VITALS: BP 113/84
--- NOTE | 2020-09-27 19:21 | NUR ---
PATIENT CURRENTLY LYING IN BED WATCHING TELEVISION. REPORTS ADMINISTERED ZOFRAN HELPED WITH N/V. PATIENT HAS C/O CHRONIC PAIN THIS SHIFT AND RECEIVED PRN OXY/APAP TWICE DURING SHIFT WITH EFFECTIVE RESULTS.
[2020-09-27 20:00] VITALS: BP 111/53
[2020-09-28 04:23] LABS: ABSOLUTE EOSINOPHILS 0.1 thou/uL (0.0-0.7); ABSOLUTE LYMPHOCYTES 1.1 thou/uL (0.8-5.3); ABSOLUTE MONOCYTES 0.8 thou/uL (0.0-1.2); ABSOLUTE NEUTROPHILS 4.7 thou/uL (1.6-8.1); BASOPHILS 0.7 %; EOSINOPHILS 1.5 %; HEMATOCRIT 22.4 % (42.0-52.0); HEMOGLOBIN 7.4 gm/dL (14.0-18.0); LYMPHOCYTES 15.8 %; MCH 32.8 pg (26.0-34.0); MCV 99.3 fL (80.0-100.0); MONOCYTES 12.4 %; MPV 7.1 fl. (7.2-11.1); NUCLEATED RBCS 0 /100WBC; PLATELET COUNT* 381 thou/uL (150-400); POLYS 69.6 %; RBC 2.25 mil/uL (4.50-6.00); RDW-CV 17.3 % (10.5-14.5); WBC 6.8 thou/uL (4.0-11.0)
[2020-09-28 04:43] LABS: ALBUMIN 1.6 g/dL (3.4-5.0); CALCIUM 8.4 mg/dL (8.5-10.1); POTASSIUM 4.4 mmol/L (3.5-5.1); TOTAL BILIRUBIN 0.3 mg/dL (<0.1-1.0); TOTAL PROTEIN 4.6 g/dL (6.4-8.2)
[2020-09-28 04:58] LABS: CREATININE 5.4 mg/dL (0.6-1.3)
--- NOTE | 2020-09-28 05:48 | NUR ---
ASSUMED CARES AT 1920. ALERT AND ORIENTED. PLEASANT. NO FURTHER N/V. PERCOCET GIVEN FOR CHRONIC BACK PAIN. REMAINS ON ISOLATION FOR CDIFF. DID HAVE 2 LOOSE STOOLS OVERNIGHT. PT STATES THAT THERE WAS BLOOD WHEN HE WIPED. PT UNABLE TO TELL THIS NURSE HOW MUCH BLOOD IF ANY WAS IN TOILET. PT INSTRUCTED TO CALL NURSE AND NOT TO FLUSH TOILET IF CONTINUES TO SEE BLOOD IN STOOL. UP AD YANET TO BATHROOM. SLEPT OFF AND ON. CALL LIGHT IN REACH.
[2020-09-28 08:30] VITALS: BP 139/64
--- NOTE | 2020-09-28 13:00 | NUR ---
LEFT MESSAGE FOR TRANSITION NURSE AT [facility] THAT PT.DISCHARGING TODAY AND TO CALL CM BACK WITH NAME OF HH AGENCY. RECEIVED CALL FROM MINDA. SHE SAID IT NORMALLY TAKES 3-4 DAYS TO SET UP HH AND ORDERS NEEDED TO BE VERY SPECIFIC. TOLD HER PT.WAS DISCHARGING TODAY AND HE HAD MEDICARE SO CM WOULD JUST GO AHEAD AND SET UP HH. SPOKE WITH PT. HE SAID HE WOULD LIKE TO USE [facility] AGAIN HE USED THEM BEFORE. HE ALSO WANTED MEDICAL RECORDS SENT TO [facility]. HAD HIM SIGN A RELEASE OF INFORMATION FORM FOR MED.RECORDS. SPOKE WITH SHERIE/[facility] AT HOME HH AND FAXED REFERRAL AND DC SUMMARY AND MED ORDERS TO HER. SHE SAID THEY CAN ACCEPT THEY HAD HIM IN NOV. FOR HOME HEALTH. TOLD PT.HE NEEDS TO REPORT TO DIALYSIS AT HIS NORMAL TIME OF 0545 TOMORROW AM IN [place] FOR DIALYSIS. PT.DID TELL CM THAT HIS SISTER WAS NOT COMING AFTER ALL AND NEPHEW COULD NOT STAY WITH HIM. HE SAID 'I WILL BE ALRIGHT'. SPOKE WITH SHANI FRANCIS. SHE SAID SHE HAD NO RESERVATIONS OF PT.GOING HOME ALONE. HE IS STEADY ON HIS FEET.
[2020-09-28 14:00] VITALS: BP 152/62
[2020-09-28 14:10] VITALS: BP 152/62
--- NOTE | 2020-09-28 15:39 | NUR ---
Pt remained A&O x4 for entire shift. Pt very pleasant with staff. Pt denies any pain other than chronic back pain. Pt notes have 6-7 loose stools per day, but smaller amounts. Pt's nephew to pick him up from hospital.
== END 2020-09-28 14:45 | disposition home health service (06) | DRG 871 ==
LOC: M.ERS 17:13 → M.TBA-ER 19:44 → M.2W 19:44 → M.3W 09-20 12:22
PROVIDERS: Internal Medicine; Physician Assistant; ADMIT Internal Medicine; ATTEND Internal Medicine
PROC: 02HV33Z Insertion of Infusion Device into Superior Vena Cava, Percutaneous Approach (ICD-10-PCS; principal; 2020-09-12)
PROC: 0DBE8ZX Excision of Large Intestine, Via Natural or Artificial Opening Endoscopic, Diagnostic (ICD-10-PCS; 2020-09-15)
PROC: 5A1D70Z Performance of Urinary Filtration, Intermittent, Less than 6 Hours Per Day (ICD-10-PCS; 2020-09-17)
PROC: 5A1D70Z Performance of Urinary Filtration, Intermittent, Less than 6 Hours Per Day (ICD-10-PCS; 2020-09-20)
PROC: 5A1D70Z Performance of Urinary Filtration, Intermittent, Less than 6 Hours Per Day (ICD-10-PCS; 2020-09-23)
DX: A41.9 Sepsis, unspecified organism (principal); N18.6 End stage renal disease; I13.2 Hypertensive heart and chronic kidney disease with heart failure and with stage 5 chronic kidney disease, or end stage renal disease; A04.72 Enterocolitis due to Clostridium difficile, not specified as recurrent; I50.42 Chronic combined systolic (congestive) and diastolic (congestive) heart failure; J44.9 Chronic obstructive pulmonary disease, unspecified; G89.29 Other chronic pain; E78.5 Hyperlipidemia, unspecified; D63.1 Anemia in chronic kidney disease; K64.8 Other hemorrhoids; N40.0 Benign prostatic hyperplasia without lower urinary tract symptoms; Z96.659 Presence of unspecified artificial knee joint; Z20.828 Contact with and (suspected) exposure to other viral communicable diseases; Z79.899 Other long term (current) drug therapy; Z79.82 Long term (current) use of aspirin; Z99.2 Dependence on renal dialysis; Z88.5 Allergy status to narcotic agent; Z88.0 Allergy status to penicillin; Z87.891 Personal history of nicotine dependence

== ENCOUNTER 2020-10-08 18:53 | Emergency (ER) | payer OTHER ==
[~2020-10-08] VITALS: Ht 175.3 cm; Wt 98.9 kg
[~2020-10-08 18:53] MED LIST changes: +DIFICID200 MG PO
[2020-10-08 20:14] LABS: HEMATOCRIT 23.7 % (42.0-52.0); HEMOGLOBIN 7.7 gm/dL (14.0-18.0); MCH 32.7 pg (26.0-34.0); MCHC 32.4 g/dL (28.0-37.0); MCV 100.9 fL (80.0-100.0); MPV 6.9 fl. (7.2-11.1); NUCLEATED RBCS 0 /100WBC; PLATELET COUNT* 307 thou/uL (150-400); RBC 2.35 mil/uL (4.50-6.00); WBC 10.7 thou/uL (4.0-11.0)
[2020-10-08 20:21] LABS: APTT 25.8 Seconds (25.0-31.3); PROTIME 10.2 Seconds (9.20-11.50)
[2020-10-08 20:22] LABS: ANION GAP 6 mmol/L (7-16); BUN 20 mg/dL (7-18); CALCIUM 8.6 mg/dL (8.5-10.1); CHLORIDE 102 mmol/L (98-107); CO2 32 mmol/L (21-32); CREATININE 4.1 mg/dL (0.6-1.3); GLUCOSE 103 mg/dL (70-99); POTASSIUM 4.3 mmol/L (3.5-5.1); SODIUM 140 mmol/L (136-145)
[2020-10-08 20:31] LABS: ALBUMIN 2.3 g/dL (3.4-5.0); ALKALINE PHOSPHATASE 110 U/L (46-116); NT-PRO BRAIN NAT PEPTIDE > 35000 pg/mL (<300); SGOT 22 U/L (15-37); SGPT 20 U/L (30-65); TOTAL BILIRUBIN 0.2 mg/dL (<0.1-1.0)
[2020-10-08 20:33] LABS: ABSOLUTE LYMPHOCYTES 0.2 thou/uL (0.8-5.3); ABSOLUTE MONOCYTES 0.5 thou/uL (0.0-1.2); ANISOCYTOSIS 1+; MACROCYTES 1+; PLATELET ESTIMATE ADEQUATE
[2020-10-08 21:40] VITALS: BP 125/70
--- NOTE | 2020-10-09 13:53 | EKG ---
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: [place] : 1950 Requested By: Estefany Ely Order Number: [id number] MD: Dani Schmid Measurements Intervals [place] Rate: 77 P: 31 AK: 159 QRS: 7 QRSD: 106 T: 30 QT: 418 QTc: 474 Interpretive Statements Sinus rhythm Left ventricular hypertrophy Compared to ECG 09/12/2020 19:18:10 Left ventricular hypertrophy now present Electronically Signed On 10-09-2020 13:52:51 HUMAN RESOURCES ANALYST by Dani Schmid [email or web address] <ELECTRONICALLY SIGNED> By: Carolyn Schmid MD, [facility] 10/09/20 1352 42 42 Carolyn Schmid MD, [facility] /EPI
== END 2020-10-08 21:41 | disposition home or self-care (01) ==
LOC: M.ERS 18:53
PROVIDERS: Personal Emergency Response Attendant
DX: R07.89 Other chest pain (principal); Z20.828 Contact with and (suspected) exposure to other viral communicable diseases; I13.2 Hypertensive heart and chronic kidney disease with heart failure and with stage 5 chronic kidney disease, or end stage renal disease; N18.6 End stage renal disease; I50.22 Chronic systolic (congestive) heart failure; E78.5 Hyperlipidemia, unspecified; Z86.2 Personal history of diseases of the blood and blood-forming organs and certain disorders involving the immune mechanism; Z88.0 Allergy status to penicillin; Z88.5 Allergy status to narcotic agent

== ENCOUNTER 2020-12-19 00:51 | Inpatient (IN) | payer OTHER ==
[2020-12-19] VITALS (8 sets, daily range): BP systolic 106–136; BP diastolic 49–73
[~2020-12-19] VITALS: Ht 172.7 cm; Wt 97.1 kg
--- NOTE | ~2020-12-19 | PROC ---
[address] [address] PROCEDURE REPORT Name: SALINA TRAN Room: [address] IN M.R.#: [id number] Admission: 12/19/20 Attend Phys: Jasbir Heart MD Discharge: 12/22/20 Date of : 52 Report #: [id number] THIS REPORT FOR: cc: Elidia Foote MD, Tuongvan T. MD [facility],Medical Records Staff ~ For GI report, please see the Provation report in Perceptive 7 content. By: 1452Medical Records Staff [facility] /DALIA
--- NOTE | ~2020-12-19 | CON ---
[address] [address] CONSULTATION Name: MARCSALINA THANH Room: [address] IN .R.#: [id number] Admission: 12/19/20 Attend Phys: Jasbir Heart MD Discharge: Date of : 52 Report #: [id number] THIS REPORT FOR: cc: Elidia Foote MD, Tuongvan T. MD ~ Jonathan Brito MD DATE OF SERVICE: 12/19/2020 REQUESTING PHYSICIAN: Jasbir Heart MD REASON FOR CONSULTATION: Assist in providing dialysis. HISTORY OF PRESENT ILLNESS: The patient is a very pleasant 70-year-old gentleman with medical history significant for end-stage renal disease, hypertension, anemia, presents with complaints of substernal chest pain. The patient was evaluated by ladle handler, ____, who does not think that the patient has any kind of ischemic pain. SOCIAL HISTORY: No tobacco or alcohol abuse. FAMILY HISTORY: Noncontributory. MEDICATIONS: Reviewed. REVIEW OF SYSTEMS: At the time of my examination, the patient's pain is resolved. He has no complaints. No shortness of breath. No fever. No chills. PHYSICAL EXAMINATION: GENERAL: Awake, alert, and oriented. VITAL SIGNS: Reviewed. HEENT: Pupils round. NECK: Supple. LUNGS: Clear. CARDIOVASCULAR: Reveals regular rate. ABDOMEN: Soft. LOWER EXTREMITIES: No edema. ASSESSMENT: 1. End-stage renal disease, dialysis on Sunday, Sunday, and Sunday schedule. 2. Chest pain, which was evaluated by ____. Nonischemic in nature. 3. Hypertension. 4[place] [address] CONSULTATION Name: SALINA TRAN Room: [address] IN ..#: [id number] Admission: 12/19/20 Attend Phys: Jasbir Heart MD Discharge: Date of : 52 Report #: [id number] PLAN: From my standpoint, he is stable, he can go home. However, if he stays until tomorrow, we will dialyze him tomorrow. By: 1030 1049Alexmichael Brito MD /nt
[2020-12-19] MEDS ORDERED: ELIQUIS2.5 MG PO (01:05)
[2020-12-19 01:35] LABS: ABSOLUTE BASOPHILS 0.1 thou/uL (0.0-0.2); ABSOLUTE EOSINOPHILS 0.2 thou/uL (0.0-0.7); ABSOLUTE LYMPHOCYTES 1.3 thou/uL (0.8-5.3); ABSOLUTE MONOCYTES 0.9 thou/uL (0.0-1.2); ABSOLUTE NEUTROPHILS 7.2 thou/uL (1.6-8.1); BASOPHILS 0.8 %; EOSINOPHILS 1.6 %; HEMATOCRIT 30.3 % (42.0-52.0); HEMOGLOBIN 9.3 gm/dL (14.0-18.0); LYMPHOCYTES 13.2 %; MCH 29.1 pg (26.0-34.0); MCHC 30.7 g/dL (28.0-37.0); MPV 7.7 fl. (7.2-11.1); NUCLEATED RBCS 0 /100WBC; PLATELET COUNT* 288 thou/uL (150-400); POLYS 75.4 %; RBC 3.19 mil/uL (4.50-6.00); RDW-CV 23.8 % (10.5-14.5); WBC 9.6 thou/uL (4.0-11.0)
[2020-12-19 01:49] LABS: APTT 28.9 Seconds (25.0-31.3); INR 1.1; PROTIME 11.2 Seconds (9.20-11.50)
[2020-12-19 02:00] LABS: ANION GAP 10 mmol/L (7-16); BUN 30 mg/dL (7-18); CALCIUM 9.4 mg/dL (8.5-10.1); CHLORIDE 100 mmol/L (98-107); CO2 32 mmol/L (21-32); GLUCOSE 109 mg/dL (70-99); POTASSIUM 3.9 mmol/L (3.5-5.1); SODIUM 142 mmol/L (136-145)
[2020-12-19 02:11] LABS: ALBUMIN 2.9 g/dL (3.4-5.0); ALKALINE PHOSPHATASE 129 U/L (46-116); SGOT 14 U/L (15-37); SGPT 12 U/L (30-65); TOTAL BILIRUBIN 0.6 mg/dL (<0.1-1.0); TOTAL PROTEIN 7.4 g/dL (6.4-8.2)
[2020-12-19 02:13] LABS: NT-PRO BRAIN NAT PEPTIDE > 35000 pg/mL (<300)
[2020-12-19 11:16] LABS: ANISOCYTOSIS 1+; PLATELET ESTIMATE ADEQUATE; POLYCHROMASIA Occasional
[2020-12-19 11:17] LABS: MACROCYTES Occasional; POIKILOCYTOSIS 1+
[2020-12-20 03:30] VITALS: BP 154/78
[2020-12-20 06:58] LABS: HEMOGLOBIN 8.2 gm/dL (14.0-18.0); MCH 29.4 pg (26.0-34.0); MCHC 31.5 g/dL (28.0-37.0); MCV 93.4 fL (80.0-100.0); MPV 7.5 fl. (7.2-11.1); RBC 2.78 mil/uL (4.50-6.00); RDW-CV 23.3 % (10.5-14.5); WBC 10.3 thou/uL (4.0-11.0)
[2020-12-20 08:14] LABS: ALBUMIN 2.6 g/dL (3.4-5.0); ALKALINE PHOSPHATASE 112 U/L (46-116); ANION GAP 12 mmol/L (7-16); BUN 38 mg/dL (7-18); CALCIUM 8.8 mg/dL (8.5-10.1); CHLORIDE 101 mmol/L (98-107); CHOLESTEROL 99 mg/dL (<200); CO2 26 mmol/L (21-32); CREATININE 6.7 mg/dL (0.6-1.3); GLUCOSE 102 mg/dL (70-99); HDL CHOLESTEROL 58 mg/dL (>40); LDL CHOLESTEROL 31 mg/dL (<100); POTASSIUM 4.9 mmol/L (3.5-5.1); SGOT 8 U/L (15-37); SGPT 17 U/L (30-65); SODIUM 139 mmol/L (136-145); TC:HDL 1.7 Ratio (Not establshd); TOTAL BILIRUBIN 0.7 mg/dL (<0.1-1.0); TOTAL PROTEIN 6.8 g/dL (6.4-8.2); TRIGLYCERIDE 50 mg/dL (<150); VLDL 10 mg/dL (<40)
[2020-12-20 08:15] LABS: SERUM ASSESSMENT Clear
--- NOTE | 2020-12-20 10:41 | CON ---
[address] [address] CONSULTATION Name: MARCSALINA THANH Room: [address] IN M.R.#: [id number] Admission: 12/19/20 Attend Phys: Jasbir Heart MD Discharge: Date of : 52 Report #: [id number] THIS REPORT FOR: cc: Elidia Foote MD, Tuongvan T. MD ~ Gomez Borrego MD [facility] DATE OF SERVICE: 12/19/2020 CARDIOLOGY CONSULTATION HISTORY OF PRESENT ILLNESS: The patient is a 70-year-old single white male who I was asked to see in the hospital today after he complained of chest pain. The patient has a long and extensive past medical history. He has a history of atrial fibrillation, but apparently never required cardioversion. He has been on Eliquis for anticoagulation. I have followed him in Cardiology Clinic in the past. I actually performed a cardiac catheterization in the past that showed no significant coronary artery disease. He is not very active at this time. He developed end-stage renal disease and has been on hemodialysis for the past year. Recently, he has noticed some shortness of breath. He had no fever or cough. He was doing well until last night at 2:30 in the morning, he awakened with a sharp pain in his chest, went into his back. It was worse if he took a deep breath or laid flat. He drove himself to the Emergency Room and was admitted. He denied any fever or cough. He has had no bleeding. He denied any palpitation or syncope. PAST MEDICAL HISTORY: He has had knee surgery, ankle surgery, hand surgery, back surgery, hypertension. No history of diabetes. CURRENT MEDICATIONS: Consist of the following list. He is on Flomax, amlodipine, Wellbutrin, aspirin, Lasix, carvedilol, Imdur, Lamictal, Eliquis, Lipitor. ALLERGIES: HE HAS A PREVIOUS INTOLERANCE TO CODEINE AND PENICILLIN. FAMILY HISTORY: His father had congestive heart failure. SOCIAL HISTORY: He is single, lives in [place]. He quit smoking in the , does not use alcohol. REVIEW OF SYSTEMS: He has had no history of stroke. He does have asthma and uses inhaler for bronchitis. No history of liver disease, cancer, psychiatric illness or chronic skin condition. PHYSICAL EXAMINATION: [place] [address] CONSULTATION Name: SALINA TRAN THANH Room: [address]#: [id number] Admission: 12/19/20 Attend Phys: Jasbir Heart MD Discharge: Date of : 52 Report #: [id number] GENERAL: Revealed an elderly male, lying in bed, appeared in no distress. VITAL SIGNS: He had a blood pressure of 130/70, pulse 70, he is afebrile. HEENT: He was anicteric. Conjunctivae pink. Mucous membranes are moist. NECK: Veins nondistended. Neck supple. CHEST: Clear to auscultation. CARDIAC: Regular rate and rhythm. No rubs or murmurs. ABDOMEN: Soft. EXTREMITIES: Had no edema. Dorsalis pedis pulse 2+. SKIN: Cool and dry. NEUROLOGIC: Nonfocal. His ECG when he was admitted last night showed a sinus rhythm with nonspecific T-wave changes. His workup in the Emergency Room last night, he had a portable chest x-ray that showed cardiomegaly, some atelectasis, small effusion. The patient's last echocardiogram was in 2019 that showed ejection fraction of 50% with aortic sclerosis, mild mitral regurgitation. LABORATORY WORK: Last night, sodium 142, BUN 30, creatinine 6. His troponins were all less than 0.06. BNP 35,000. His white blood cell count was 9.6, hemoglobin 9.3. His COVID antigen stat test was negative. Previous heart catheterization showed no significant coronary artery disease. Heart catheterization was performed in 2018 from the radial artery that showed ejection fraction of 40% with only a 40% stenosis in circumflex and a 50% narrowing of the right coronary artery. IMPRESSION AND RECOMMENDATIONS: 1. Chest pain. Atypical for angina. No findings of rub to suggest pericarditis. Suspect noncardiac. 2. History of atrial fibrillation. The patient is chronically anticoagulated with Eliquis. I would continue his beta alberto. 3. Hypertension. The patient is on a beta alberto, calcium alberto. 4. Hyperlipidemia. The patient is on a statin drug. 5. End-stage renal disease. The patient is on hemodialysis. 6. History of asthma. 7. Anemia. <ELECTRONICALLY SIGNED> By: Gomez Borrego MD, [facility] 12/20/20 1041 0913 1141Davikg Borrego MD, FAC /nt
[2020-12-20 12:00] VITALS: BP 142/78
[2020-12-20 12:10] VITALS: BP 154/78
--- NOTE | 2020-12-20 14:08 | 2DMMODE ---
[place] [address] 2 D/M-MODE ECHOCARDIOGRAM Name: SALINA TRAN Room: [address] IN [facility]#: [id number] Admission: 12/19/20 Attend Phys: Jasbir Heart, Discharge: Date of : 52 Date of Service: 12/20/20 1408 Report #: [id number] THIS REPORT FOR: cc: Elidia Foote MD, Tuongvan T. MD Holkins, John M. MD [facility] ~ APPROVED REPORT Study performed: 12/20/2020 12:02:49 EXAM: Comprehensive 2D, Doppler, and color-flow Echocardiogram Patient Location: In-Patient Room #: [facility] Status: routine BSA: 2.10 HR: 70 bpm BP: 154/78 mmHg Rhythm: NSR Other Information Study Quality: Good Indications Chest Pain 2D Dimensions IVSd: 13.45 (7-11mm) LVOT Diam: 22.64 (18-24mm) LVDd: 61.97 mm PWd: 13.32 (7-11mm) Ascending Ao: 33.56 (22-36mm) LVDs: 53.37 (25-40mm) Aortic Root: 42.77 mm Volumes Left Atrial Volume (Systole) LA ESV Index: 74.00 mL/m2 Aortic Valve AoV Peak Abdifatah.: 1.30 m/s AO Peak Gr.: 6.71 mmHg LVOT Max P.61 mmHg AO Mean Gr.: 3.85 mmHg LVOT Mean P.03 mmHg LVOT Max V: 1.07 m/s AO V2 VTI: 24.33 cm LVOT Mean V: 0.64 m/s AUGUSTIN (VTI): 3.66 cm2 LVOT V1 VTI: 22.12 cm AI Blaine: 2.37 m/s2 [place] [address] 2 D/M-MODE ECHOCARDIOGRAM Name: SALINA TRAN THANH Room: [address] IN ..#: [id number] Admission: 12/19/20 Attend Phys: Jasbir Heart, Discharge: Date of : 52 Date of Service: 12/20/20 1408 Report #: [id number] AI PHT: 463.24 ms Mitral Valve E/A Ratio: 2.91 MV Decel. Time: 174.04 ms MV E Max Abdifatah.: 0.98 m/s MV PHT: 50.47 ms MVA (PHT): 4.36 cm2 TDI E/Lateral E': 8.17 E/Medial E': 14.00 Medial E' Abdifatah.: 0.07 m/s Lateral E' Abdifatah.: 0.12 m/s Pulmonary Valve PV Peak Abdifatah.: 0.91 m/s PV Peak Gr.: 3.32 mmHg Tricuspid Valve RAP Estimate: 5.00 mmHg TR Peak Gr.: 22.80 mmHg RVSP: 27.00 mmHg PA Pressure: 27.00 mmHg Left Ventricle The left ventricle is normal size. There is global hypokinesis of the left ventricle. Borderline concentric left ventricular hypertrophy. Left ventricular systolic function is moderate to severely decreased. LVEF is 35%. Grade IV - fixed restrictive diastolic dysfunction. Right Ventricle The right ventricle is normal size. The right ventricular systolic function is normal. Atria Left atrium is moderately dilated. The right atrium size is normal. Aortic Valve Mild aortic valve sclerosis. Mild aortic regurgitation. There is no aortic valvular stenosis. Mitral Valve There is mitral annular calcification. Mild to moderate mitral regurgitation. No evidence of mitral valve stenosis. [place] [address] 2 D/M-MODE ECHOCARDIOGRAM Name: SALINA TRAN Room: [address] IN [facility]#: [id number] Admission: 12/19/20 Attend Phys: Jasbir Heart, Discharge: Date of : 52 Date of Service: 12/20/20 1408 Report #: [id number] The tricuspid valve is normal in structure. Mild tricuspid regurgitation. No pulmonary hypertension. Pulmonic Valve The pulmonary valve is normal in structure. Mild pulmonic regurgitation. Great Vessels The aortic root is normal in size. IVC is normal in size and collapses >50% with inspiration. Pericardium There is no pericardial effusion. <Conclusion> The left ventricle is normal size. Borderline concentric left ventricular hypertrophy. Left ventricular systolic function is moderate to severely decreased. LVEF is 35%. The right ventricle is normal size. Left atrium is moderately dilated. The right atrium size is normal. Mild aortic valve sclerosis. Mild aortic regurgitation. There is no aortic valvular stenosis. There is mitral annular calcification. Mild to moderate mitral regurgitation. No evidence of mitral valve stenosis. The tricuspid valve is normal in structure. Mild tricuspid regurgitation. No pulmonary hypertension. IVC is normal in size and collapses >50% with inspiration. There is no pericardial effusion. There is global hypokinesis of the left ventricle. <ELECTRONICALLY SIGNED> By: Danny Leary MD, FACC 12/20/20 1408 1408 1408 Danny Leary MD, FACC /INF
[2020-12-20 16:00] VITALS: BP 126/59
--- NOTE | 2020-12-20 17:32 | EKG ---
[place] [address] ELECTROCARDIOGRAM REPORT Name: SALINA TRAN Room: [address] ADM IN M.R.#: [id number] Admission: 12/19/20 Attend Phys: Jasbir Heart, Discharge: Date of : 52 Date of Service: 12/19/20 0056 Report #: [id number] THIS REPORT FOR: //name// [facility] ED Test Date: 2020-12-19 Test Time: 00:56:48 Pat Name: SALINA TRAN Department: Room: [facility] Gender: M Dry Kiln Burner: BELEM Raza : 1950 Requested By: Estefany Ely Order Number: [id number] MD: Danny Leary Measurements Intervals [place] Rate: 74 P: 38 NM: 231 QRS: 29 QRSD: 153 T: 210 QT: 416 QTc: 462 Interpretive Statements Sinus rhythm Prolonged NM interval LVH with secondary repolarization abnormality Baseline wander in lead(s) V1 Compared to ECG 10/08/2020 19:43:28 First degree AV block now present Early repolarization now present Electronically Signed On 12-20-2020 17:32:14 CDT by Danny Leary [email or web address] <ELECTRONICALLY SIGNED> By: Danny Leary MD, FAC 12/20/20 1732 0056 0056 Danny Leary MD, [facility] /EPI
[2020-12-20 21:00] VITALS: BP 134/74
[2020-12-21 01:51] VITALS: BP 113/53
[2020-12-21 07:35] LABS: HEMATOCRIT 26.4 % (42.0-52.0); HEMOGLOBIN 8.1 gm/dL (14.0-18.0); MCH 28.9 pg (26.0-34.0); MCHC 30.5 g/dL (28.0-37.0); MCV 94.7 fL (80.0-100.0); MPV 7.5 fl. (7.2-11.1); RBC 2.79 mil/uL (4.50-6.00); RDW-CV 23.5 % (10.5-14.5); WBC 9.5 thou/uL (4.0-11.0)
[2020-12-21 07:49] LABS: CALCIUM 8.6 mg/dL (8.5-10.1); CREATININE 4.6 mg/dL (0.6-1.3); POTASSIUM 3.9 mmol/L (3.5-5.1)
[2020-12-21 16:00] VITALS: BP 108/45
[2020-12-21 20:08] VITALS: BP 118/60
[2020-12-22] VITALS (7 sets, daily range): BP systolic 117–154; BP diastolic 58–78
[2020-12-22] MEDS ORDERED: PROTONIX40 M2 PO (09:49)
--- NOTE | 2020-12-27 10:06 | PATH ---
[address] [address] PATHOLOGY RPT PROCEDURE Name: SALINA TRAN THANH Room: [address] IN M.R.#: [id number] Admission: 12/19/20 Date of : 52 Discharge: 12/22/20 Report #: [id number] Path Case #: [id number] [facility] Accession Number: [id number] . 01 Material submitted: . colon - TRANSVERSE COLON POLYP X 3. Modifiers: transverse . 02 Diagnosis: Transverse colon polyp (x3): - Single fragment of tubular adenoma without high-grade dsplasia, in association with vegetable material. (GATO:[place]; 12/24/2020) QMS 12/24/2020 1643 Local . 02 Electronically signed: . Jarek Jin MD, Pathologist NPI- [id number] . 01 Gross description: . The specimen is received in formalin, labeled "SALINA TRAN D, transverse colon polyp x 3" and consists of multiple fragments of soft flores tissue measuring up to 0.4 cm. Entirely submitted in A1.([facility]; 12/23/2020) DIMITRI/DIMITRI 12/24/2020 1642 Local . 02 Pathologist provided ICD-10: D12.3 . 02 CPT . 835830 Specimen Comment: A courtesy copy of this report has been sent to [phone] Specimen Comment: [phone], Specimen Comment: Report sent to ,DR CHAMBERLAIN / DR ANGULO Performed at: [address], [place] [address] MD Bryant Trejo MD Phone: [phone] Performed at: 02 [facility] [address], [place], [place] [address] MD Jarek Jin MD Phone: [phone]
--- NOTE | 2021-01-07 14:22 | CON ---
[address] [address] CONSULTATION Name: SALINA TRAN THANH Room: [address] IN M.R.#: [id number] Admission: 12/19/20 Attend Phys: Jasbir Heart MD Discharge: 12/22/20 Date of : 52 Report #: [id number] THIS REPORT FOR: cc: Elidia Foote MD, Tuongvan T. MD Namin, Farid M. MD ~ DATE OF SERVICE: 12/19/2020 REQUESTING PHYSICIAN: Jasbir Heart MD REASON FOR CONSULT: Chest pain. HISTORY OF PRESENT ILLNESS: This is a 70-year-old male who is known to us as he had C. diff with pseudomembranous colitis back in 08/2020. He was recommended to have a colonoscopy in 3 months as his prep was poor at that time. His biopsy results confirmed infectious colitis. The patient denies any gastroesophageal reflux or dyspepsia-type symptoms. He has known cardiac history and sees Dr. Esparza for AFib and congestive heart disease. The patient denies any lower GI symptoms as he denies hematochezia, melena, change in stool habits and caliber. He reports that he has daily BMs. PAST MEDICAL HISTORY: Significant for history of C. diff colitis back in 08/2020. He also has history of CHF, AFib for which he takes anticoagulation therapy. His other past medical history is significant for history of encephalopathy, benign prostatic hypertrophy, end-stage renal disease, anemia, chronic pain. ALLERGIES: SIGNIFICANT TO CODEINE AND PENICILLIN. MEDICATIONS: Please refer to MAR. SOCIAL HISTORY: The patient denies alcohol use. He also denies any tobacco use. He lives at home. FAMILY HISTORY: Noncontributory. PHYSICAL EXAMINATION: VITAL SIGNS: Reveals blood pressure of 136/65, respirations 19, pulse 72, temperature 97.3. LUNGS: Clear. CARDIOVASCULAR: Regular. ABDOMEN: Soft, nontender, nondistended. Bowel sounds are positive. NEUROLOGIC: The patient is alert and [place] x 3. [place] [address] CONSULTATION Name: SALINA TRAN Room: [address]#: [id number] Admission: 12/19/20 Attend Phys: Jasbir Heart MD Discharge: 12/22/20 Date of : 52 Report #: [id number] LABORATORY DATA: Labs reveal sodium of 142, potassium 3.9, BUN is 30, creatinine is 6.0, AST is 14, ALT is 12 with alkaline phosphatase of 129, total bilirubin is 0.6, albumin is 2.9. INR is 1.1 with WBC of 9.6 and hemoglobin of 9.3, platelet is 288. IMAGING: Chest x-ray was obtained, which shows bibasilar infiltrate or atelectasis with small left pleural effusion and stable cardiomegaly. ASSESSMENT AND PLAN: The patient's chest pain may be due to bibasilar infiltrate and atelectasis as he reports that when he takes a deep breath, his chest hurts. He also has significant cardiac history and is on blood thinners. We want clearance from Cardiology and addressing his current lung findings prior to considering any endoscopic evaluation. At some time, we will consider taking a look at his colon. <ELECTRONICALLY SIGNED> By: Rosa Lopez MD 01/07/21 1422 0842 1045Rosa Lopez MD /nt
== END 2020-12-22 14:49 | disposition home or self-care (01) | DRG 291 ==
LOC: M.ERS 00:51 → M.2W 03:17 → M.TBA-ER 03:17 → M.2W 04:32
PROVIDERS: Family Medicine; Internal Medicine Cardiovascular Disease; Internal Medicine Gastroenterology; Personal Emergency Response Attendant; ADMIT Internal Medicine; ATTEND Internal Medicine
DX: I13.2 Hypertensive heart and chronic kidney disease with heart failure and with stage 5 chronic kidney disease, or end stage renal disease (principal); I50.33 Acute on chronic diastolic (congestive) heart failure; N18.6 End stage renal disease; D63.8 Anemia in other chronic diseases classified elsewhere; E78.5 Hyperlipidemia, unspecified; M19.90 Unspecified osteoarthritis, unspecified site; G89.29 Other chronic pain; M54.5 Low back pain; E66.01 Morbid (severe) obesity due to excess calories; I48.91 Unspecified atrial fibrillation; I42.8 Other cardiomyopathies; D12.3 Benign neoplasm of transverse colon; K21.9 Gastro-esophageal reflux disease without esophagitis; N40.0 Benign prostatic hyperplasia without lower urinary tract symptoms; K57.30 Diverticulosis of large intestine without perforation or abscess without bleeding; K64.8 Other hemorrhoids; K44.9 Diaphragmatic hernia without obstruction or gangrene; R07.89 Other chest pain; Z96.653 Presence of artificial knee joint, bilateral; Z20.822 Contact with and (suspected) exposure to COVID-19; Z99.2 Dependence on renal dialysis; Z79.01 Long term (current) use of anticoagulants; Z79.899 Other long term (current) drug therapy; Z88.5 Allergy status to narcotic agent; Z88.0 Allergy status to penicillin; Z87.891 Personal history of nicotine dependence; Z68.32 Body mass index [BMI] 32.0-32.9, adult

== ENCOUNTER 2021-02-01 17:04 | Emergency (ER) | payer OTHER ==
[~2021-02-01] VITALS: Ht 172.7 cm; Wt 96.6 kg
[~2021-02-01 17:04] MED LIST changes: +PROTONIX40 M2 PO
[2021-02-01 18:44] VITALS: BP 141/65
== END 2021-02-01 18:44 | disposition home or self-care (01) ==
LOC: M.ERS 17:04
DX: K91.841 Postprocedural hemorrhage of a digestive system organ or structure following other procedure (principal); K06.8 Other specified disorders of gingiva and edentulous alveolar ridge; I13.2 Hypertensive heart and chronic kidney disease with heart failure and with stage 5 chronic kidney disease, or end stage renal disease; I50.20 Unspecified systolic (congestive) heart failure; N18.6 End stage renal disease; E78.5 Hyperlipidemia, unspecified; E66.9 Obesity, unspecified; N40.0 Benign prostatic hyperplasia without lower urinary tract symptoms; Z88.0 Allergy status to penicillin; Z79.899 Other long term (current) drug therapy; Z68.32 Body mass index [BMI] 32.0-32.9, adult

== ENCOUNTER → 2021-02-22 | Outpatient (CLI) | payer MEDICARE | LOC: M.ULTRA 08:26 | PROVIDERS: ATTEND Family Medicine | DX: R22.32 Localized swelling, mass and lump, left upper limb (principal) ==

== ENCOUNTER 2021-04-18 20:37 | Observation (INO) | payer MEDICARE ==
[~2021-04-18] VITALS: Ht 177.8 cm; Wt 104.3 kg
[2021-04-18 20:48] VITALS: BP 146/84
[2021-04-18 21:28] LABS: ABSOLUTE EOSINOPHILS 0.1 thou/uL (0.0-0.7); ABSOLUTE LYMPHOCYTES 0.9 thou/uL (0.8-5.3); ABSOLUTE MONOCYTES 0.7 thou/uL (0.0-1.2); ABSOLUTE NEUTROPHILS 4.3 thou/uL (1.6-8.1); BASOPHILS 0.6 %; HEMATOCRIT 32.3 % (42.0-52.0); HEMOGLOBIN 10.9 gm/dL (14.0-18.0); LYMPHOCYTES 15.3 %; MCH 31.7 pg (26.0-34.0); MCHC 33.5 g/dL (28.0-37.0); MCV 94.6 fL (80.0-100.0); MONOCYTES 11.1 %; MPV 8.8 fl. (7.2-11.1); NUCLEATED RBCS 0 /100WBC; PLATELET COUNT* 149 thou/uL (150-400); RBC 3.42 mil/uL (4.50-6.00); RDW-CV 18.6 % (10.5-14.5)
[2021-04-18 21:41] LABS: ANION GAP 9 mmol/L (7-16); BUN 45 mg/dL (7-18); CALCIUM 8.8 mg/dL (8.5-10.1); CHLORIDE 101 mmol/L (98-107); CO2 31 mmol/L (21-32); CREATININE 5.3 mg/dL (0.6-1.3); GLUCOSE 105 mg/dL (70-99); POTASSIUM 5.6 mmol/L (3.5-5.1); SODIUM 141 mmol/L (136-145)
[2021-04-18 21:51] LABS: ALBUMIN 3.5 g/dL (3.4-5.0); ALKALINE PHOSPHATASE 232 U/L (46-116); MAGNESIUM 2.9 mg/dL (1.8-2.4); NT-PRO BRAIN NAT PEPTIDE > 35000 pg/mL (<300); SGOT 32 U/L (15-37); SGPT 51 U/L (30-65); TOTAL BILIRUBIN 0.6 mg/dL (<0.1-1.0); TOTAL PROTEIN 7.1 g/dL (6.4-8.2)
[2021-04-19 03:58] VITALS: BP 128/64
[2021-04-19 07:42] VITALS: BP 142/73
[2021-04-19 09:12] VITALS: BP 142/73
[2021-04-19 10:00] VITALS: BP 129/64
--- NOTE | 2021-04-19 10:42 | NUR ---
Admission Assessment Admitted from Home Mental Status upon admission Alert & Oriented x Living Arrangements: Stairs Elevator House Lives with: or they live with patient Alone Support system: Name Phone number Relationship Briana Sanford [phone] Friend Can patient return to prior living arrangements? Yes Notes: Activities of daily living: Independent HD 3x week Still Drives Assistive device: Shower chair Prior resource use: None
--- NOTE | 2021-04-19 12:01 | EKG ---
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[place] : 1950 Requested By: Christine Mike Order Number: [id number] MD: Gonzalez Dukes Measurements Intervals [place] Rate: 69 P: 69 AK: 217 QRS: 27 QRSD: 112 T: 41 QT: 460 QTc: 493 Interpretive Statements Sinus rhythm with first-degree AV block Compared to ECG 12/19/2020 00:56:48 Left ventricular hypertrophy no longer present Early repolarization no longer present Electronically Signed On 04-19-2021 12:01:13 CDT by Gonzalez Dukes [email or web address] <ELECTRONICALLY SIGNED> By: Gonzalez Dukes MD, FACC 04/19/21 1201 43 43 Gonzalez Dukes MD, FACC /EPI
== END 2021-04-19 10:00 | disposition home or self-care (01) ==
LOC: M.ERS 20:37 → M.TBA-ER 22:59
PROVIDERS: Emergency Medicine; ADMIT Internal Medicine; ATTEND Internal Medicine
DX: R18.8 Other ascites (principal); Z20.822 Contact with and (suspected) exposure to COVID-19; R07.89 Other chest pain; I48.0 Paroxysmal atrial fibrillation; I25.5 Ischemic cardiomyopathy; E66.9 Obesity, unspecified; R06.00 Dyspnea, unspecified; I13.2 Hypertensive heart and chronic kidney disease with heart failure and with stage 5 chronic kidney disease, or end stage renal disease; N18.6 End stage renal disease; I50.22 Chronic systolic (congestive) heart failure; E78.5 Hyperlipidemia, unspecified; Z79.899 Other long term (current) drug therapy; Z88.0 Allergy status to penicillin; Z99.2 Dependence on renal dialysis; Z68.33 Body mass index [BMI] 33.0-33.9, adult

== ENCOUNTER → 2021-06-30 | Outpatient (CLI) | payer MEDICARE | LOC: M.RAD 09:40 | PROVIDERS: ATTEND Internal Medicine Cardiovascular Disease | DX: I51.7 Cardiomegaly (principal); I48.91 Unspecified atrial fibrillation ==

== ENCOUNTER → 2021-07-15 | Outpatient (CLI) | payer MEDICARE ==
[~2021-07-15] MED LIST changes: +FOSRENOL750 MG PO; +MIDODRINE HCL 55 M1 PO
--- NOTE | 2021-07-15 17:04 | EKG ---
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: : 1950 Requested By: Elidia Foote Order Number: [id number] Katelyn MD: Gomez Borrego Measurements Intervals [place] Rate: 49 P: 11 DC: 249 QRS: 32 QRSD: 121 T: 263 QT: 543 QTc: 491 Interpretive Statements Sinus bradycardia Prolonged DC interval IVCD, consider atypical RBBB Compared to ECG 04/18/2021 20:44:54 First degree AV block now present Sinus rhythm no longer present Electronically Signed On 07-15-2021 17:04:28 CDT by Gomez Borrego [email or web address] <ELECTRONICALLY SIGNED> By: Gomez Borrego MD, FACC 07/15/21 1704 1057 1057 Gomez Borrego MD, [facility] /EPI
== END ==
LOC: M.RAD 10:30
PROVIDERS: ATTEND Nurse Practitioner Family
DX: J98.11 Atelectasis (principal); I51.7 Cardiomegaly; J84.10 Pulmonary fibrosis, unspecified; J98.4 Other disorders of lung; I44.0 Atrioventricular block, first degree; R00.1 Bradycardia, unspecified; N18.6 End stage renal disease

== ENCOUNTER 2021-07-18 10:26 | Emergency (ER) | payer MEDICARE ==
[~2021-07-18] VITALS: Ht 172.7 cm; Wt 99.3 kg
[~2021-07-18 10:26] MED LIST changes: -FOSRENOL750 MG PO; -MIDODRINE HCL 55 M1 PO
[2021-07-18] MEDS ORDERED: MIDODRINE HCL 55 M1 PO (10:34)
[2021-07-18] MEDS ORDERED: FOSRENOL750 MG PO (10:34)
[2021-07-18 11:24] LABS: ABSOLUTE EOSINOPHILS 0.1 thou/uL (0.0-0.7); ABSOLUTE LYMPHOCYTES 0.9 thou/uL (0.8-5.3); ABSOLUTE MONOCYTES 0.4 thou/uL (0.0-1.2); ABSOLUTE NEUTROPHILS 2.9 thou/uL (1.6-8.1); BASOPHILS 1.1 %; EOSINOPHILS 2.2 %; HEMATOCRIT 32.7 % (42.0-52.0); HEMOGLOBIN 10.8 gm/dL (14.0-18.0); LYMPHOCYTES 20.7 %; MCH 33.7 pg (26.0-34.0); MCHC 32.9 g/dL (28.0-37.0); MCV 102.5 fL (80.0-100.0); MONOCYTES 9.1 %; MPV 9.3 fl. (7.2-11.1); NUCLEATED RBCS 0 /100WBC; PLATELET COUNT* 136 thou/uL (150-400); POLYS 66.9 %; RBC 3.19 mil/uL (4.50-6.00); RDW-CV 17.6 % (10.5-14.5); WBC 4.3 thou/uL (4.0-11.0)
[2021-07-18 11:35] LABS: ANION GAP 8 mmol/L (7-16); BUN 22 mg/dL (7-18); CHLORIDE 96 mmol/L (98-107); CO2 34 mmol/L (21-32); CREATININE 3.6 mg/dL (0.6-1.3); GLUCOSE 97 mg/dL (70-99); POTASSIUM 3.9 mmol/L (3.5-5.1); SODIUM 138 mmol/L (136-145)
[2021-07-18 11:45] LABS: ALBUMIN 3.7 g/dL (3.4-5.0); ALKALINE PHOSPHATASE 282 U/L (46-116); MAGNESIUM 2.6 mg/dL (1.8-2.4); NT-PRO BRAIN NAT PEPTIDE > 35000 pg/mL (<300); SGOT 29 U/L (15-37); SGPT 23 U/L (30-65); TOTAL BILIRUBIN 0.5 mg/dL (<0.1-1.0); TOTAL PROTEIN 7.6 g/dL (6.4-8.2)
[2021-07-18 12:01] VITALS: BP 120/57
--- NOTE | 2021-07-18 16:14 | EKG ---
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[employer]: : 1950 Requested By: Matt Lance Order Number: [id number] MD: Gomez Borrego Measurements Intervals [place] Rate: 46 P: 70 DC: 268 QRS: 39 QRSD: 135 T: 143 QT: 564 QTc: 494 Interpretive Statements Sinus bradycardia Prolonged DC interval Nonspecific intraventricular conduction delay Borderline repolarization abnormality Compared to ECG 07/15/2021 10:57:02 No significant changes Electronically Signed On 07-18-2021 16:14:19 CDT by Gomez Borrego [email or web address] <ELECTRONICALLY SIGNED> By: Gomez Borrego MD, FACC 07/18/21 1614 1031 1031 Gomez Borrego MD, FAC /EPI
== END 2021-07-18 12:02 | disposition home or self-care (01) ==
LOC: M.ERS 10:26
PROVIDERS: Family Medicine
DX: R00.1 Bradycardia, unspecified (principal); R79.89 Other specified abnormal findings of blood chemistry; R42 Dizziness and giddiness; I42.8 Other cardiomyopathies; I48.0 Paroxysmal atrial fibrillation; I48.91 Unspecified atrial fibrillation; E78.5 Hyperlipidemia, unspecified; I13.2 Hypertensive heart and chronic kidney disease with heart failure and with stage 5 chronic kidney disease, or end stage renal disease; N18.6 End stage renal disease; I50.22 Chronic systolic (congestive) heart failure; Z99.2 Dependence on renal dialysis; E66.9 Obesity, unspecified; Z68.33 Body mass index [BMI] 33.0-33.9, adult; Z96.653 Presence of artificial knee joint, bilateral; Z98.890 Other specified postprocedural states; Z79.899 Other long term (current) drug therapy; Z88.0 Allergy status to penicillin

== ENCOUNTER → 2021-07-28 | Outpatient (CLI) | payer MEDICARE ==
[~2021-07-28] MED LIST changes: +FOSRENOL750 MG PO; +MIDODRINE HCL 55 M1 PO
== END ==
LOC: M.ULTRA 06:02
PROVIDERS: ATTEND Nurse Practitioner Adult Health
DX: K43.9 Ventral hernia without obstruction or gangrene (principal); R16.0 Hepatomegaly, not elsewhere classified

== ENCOUNTER → 2021-10-14 | Outpatient (CLI) | payer MEDICARE ==
[~2021-10-14] MED LIST changes: +EUTHYROX88 MCG PO
== END ==
LOC: M.LAB 10:12
PROVIDERS: ATTEND Internal Medicine Gastroenterology
DX: Z01.812 Encounter for preprocedural laboratory examination (principal); Z20.822 Contact with and (suspected) exposure to COVID-19

== ENCOUNTER → 2021-10-17 | Day surgery (SDC) | payer MEDICARE ==
--- NOTE | ~2021-10-17 | PROC ---
[address] [address] PROCEDURE REPORT Name: SALINA TRAN Room: [facility].#: [id number] Admission: 10/17/21 Attend Phys: Abhi Torres DO Discharge: Date of : 52 Report #: [id number] THIS REPORT FOR: cc: Elidia Foote MD, Tuongvan T. MD [facility],Medical Records Staff ~ For GI report, please see the Provation report in Perceptive 7 content. By: 1019Medical Records Staff [facility] /DALIA
[2021-10-17 08:43] LABS: HEMATOCRIT 32.9 % (42.0-52.0); HEMOGLOBIN 10.7 gm/dL (14.0-18.0); MCH 32.8 pg (26.0-34.0); MCHC 32.6 g/dL (28.0-37.0); MCV 100.6 fL (80.0-100.0); MPV 8.2 fl. (7.2-11.1); RBC 3.27 mil/uL (4.50-6.00); RDW-CV 15.4 % (10.5-14.5); WBC 7.8 thou/uL (4.0-11.0)
[2021-10-17 08:50] LABS: CALCIUM 9.5 mg/dL (8.5-10.1); CREATININE 7.4 mg/dL (0.6-1.3); POTASSIUM 5.1 mmol/L (3.5-5.1)
--- NOTE | 2021-10-19 13:08 | PATH ---
[facility] [address] [place] [address] PATHOLOGY RPT PROCEDURE Name: SALINA DUMAS THANH Room: [facility] Magda#: [id number] Admission: 10/17/21 Date of : 52 Discharge: Report #: [id number] Path Case #: [id number] LCA Accession Number: [id number] . 01 Material submitted: . PART A: colon - PROXIMAL ASCENDING COLON POLYPS. Modifiers: proximal, ascending PART B: colon - DISTAL ASCENDING POLYP. Modifiers: distal, ascending PART C: colon - PROXIMAL TRANSVERSE COLON POLYP. Modifiers: proximal, transverse PART D: colon - MIDTRANSVERSE COLON POLYPS. Modifiers: mid PART E: colon - DISTAL TRANSVERSE COLON POLYPS. Modifiers: distal, transverse PART F: colon - DESCENDING COLON POLYP. Modifiers: descending PART G: sigmoid colon - SIGMOID POLYP PART H: rectum - RECTUM POLYP . 01 Clinical history: . EGD AND COLONOSCOPY ABDOMINAL DISTENTION, HX OF COLON POLYPS, GERD, DYSPHAGIA . 02 Diagnosis: A. Proximal ascending colon polyp(s): - Two segments of tubular adenoma(s), negative for high grade dysplasia. . B. Distal ascending colon polyp(s); (hot): - Multiple fragments of hyperplastic polyp(s). . C. Proximal transverse colon polyp (hot): - Tubular adenoma, negative for high grade dysplasia. . D. Mid transverse colon polyps (hot): - Multiple tubular adenomas, negative for high grade dysplasia. . E. Distal transverse colon polyp(s): - Multiple fragments of tubular adenoma(s), negative for high grade dysplasia. . F. Descending colon polyp: - Tubular adenoma, negative for high grade dysplasia. . G. Sigmoid colon polyp (X1): - Tubular adenoma, negative for high grade dysplasia. . H. Rectum polyp (X1): - Vegetable material/debris without colonic tissue. (GATO/db; 10/19/2021) LBQ 10/19/2021 [address] [place] [address] PATHOLOGY RPT PROCEDURE Name: SALINA DUMAS THANH [id number]: 10/17/21 Date of : 52 Discharge: Report #: [id number] Path Case #: [id number] . 02 Electronically signed: . Jarek Jin MD, Pathologist NPI- [id number] . 01 Gross description: . A. The specimen is received in formalin, labeled "[place], Salina, proximal ascending colon polyp". The source is additionally listed on the requisition as "proximal ascending colon polyps". Received are 2 segments of pale flores tissue ranging in size from 0.3 cm to 0.6 cm in maximum dimensions. The specimen is submitted entirely in cassette A1. . B. The specimen is received in formalin, labeled "[place], Salina, distal ascending colon polyps hot". The source is additionally listed on the requisition as "distal ascending polyp". Received are multiple segments of light flores tissue along with vegetable material measuring 1.2 x 0.4 x 0.1 cm in aggregate dimensions. The specimen is filtered and entirely submitted in cassette B1. . C. The specimen is received in formalin, labeled "[place], Salina, proximal transverse colon Hot". The source is additionally listed on the requisition as "proximal transverse colon polyp". Received are multiple segments of light flores to dark flores tissue along with vegetable material measuring 2.3 x 0.7 x 0.1 cm in aggregate dimensions. The specimen is filtered and entirely submitted in cassette C1. . D. The specimen is received in formalin, labeled "[place], Salina, mid transverse colon polyps hot". Received are multiple segments of light flores to dark flores tissue along with vegetable material measuring 2.2 x 1.5 x 0.1 cm in aggregate dimensions. The specimen is filtered and entirely submitted in cassette D1. . E. The specimen is received in formalin, labeled "[place], Salina, distal transverse colon polyp". The source is additionally listed on the requisition as "distal transverse colon polyps". Received are multiple segments of dark flores-yellow tissue admixed with vegetable material measuring 2.7 x 2.0 x 0.1 cm in aggregate dimensions. The specimen is filtered and entirely submitted in cassette E1. . F. The specimen is received in formalin, labeled "[place], Salina, descending colon polyp hot". Received are multiple segments of light flores to dark flores-yellow tissue along with vegetable material measuring 1.5 x 0.6 x 0.1 cm in aggregate dimensions. The specimen is filtered and entirely submitted in cassette F1. . G. The specimen is received in formalin, labeled "Piter, Salina, sigmoid colon polyp X1". Received are multiple segments of light flores tissue along with vegetable material measuring 0.6 x 0.4 x 0.1 cm in aggregate dimensions. The specimen is filtered [place] [address] PATHOLOGY RPT PROCEDURE Name: SALINA DUMAS THANH Room: [facility]#: [id number] Admission: 10/17/21 Date of : 52 Discharge: Report #: [id number] Path Case #: [id number] cassette G1. . H. The specimen is received in formalin, labeled "Salina Dumas, rectum polyp X1". Received are multiple segments of dark flores-yellow tissue along with vegetable material measuring 2.5 x 1.0 x 0.1 cm in aggregate dimensions. The specimen is filtered and entirely submitted in cassette H1.([facility]; 10/18/2021) [facility] 10/19/2021 1052 Local . 02 Pathologist provided ICD-10: D12.2, K63.5, D12.3, D12.4, D12.5 . 02 CPT . 903619, 484891, 264753, 869026, 241270, 067641, 542014, 215685 Specimen Comment: A courtesy copy of this report has been sent to [phone] Specimen Comment: Report sent to Performed at: [address], [place], [place] [id number] MD Bryant Trejo MD Phone: [phone] Performed at: 02 [facility] [address], [place], [place] [id number] MD Jarek Jin MD Phone: [phone]
== END | disposition home or self-care (01) ==
LOC: M.SUR 07:50
PROVIDERS: ATTEND Internal Medicine Gastroenterology
DX: Z12.11 Encounter for screening for malignant neoplasm of colon (principal); Z86.010 Personal history of colon polyps; D12.2 Benign neoplasm of ascending colon; D12.3 Benign neoplasm of transverse colon; D12.4 Benign neoplasm of descending colon; D12.5 Benign neoplasm of sigmoid colon; K64.4 Residual hemorrhoidal skin tags; K57.30 Diverticulosis of large intestine without perforation or abscess without bleeding; K62.1 Rectal polyp; R12 Heartburn; K31.89 Other diseases of stomach and duodenum; K21.9 Gastro-esophageal reflux disease without esophagitis; I13.2 Hypertensive heart and chronic kidney disease with heart failure and with stage 5 chronic kidney disease, or end stage renal disease; N18.6 End stage renal disease; E78.5 Hyperlipidemia, unspecified; I48.91 Unspecified atrial fibrillation; I25.5 Ischemic cardiomyopathy; I50.9 Heart failure, unspecified; Z98.890 Other specified postprocedural states; Z79.899 Other long term (current) drug therapy; Z87.891 Personal history of nicotine dependence; Z96.653 Presence of artificial knee joint, bilateral; Z79.01 Long term (current) use of anticoagulants

== ENCOUNTER 2021-10-18 17:03 | Emergency (ER) | payer MEDICARE ==
[~2021-10-18] VITALS: Ht 172.7 cm; Wt 98.0 kg
[2021-10-18 20:53] VITALS: BP 131/61
== END 2021-10-18 20:53 | disposition home or self-care (01) ==
LOC: M.ERS 17:03
DX: S52.125A Nondisplaced fracture of head of left radius, initial encounter for closed fracture (principal); S00.93XA Contusion of unspecified part of head, initial encounter; E78.5 Hyperlipidemia, unspecified; I13.2 Hypertensive heart and chronic kidney disease with heart failure and with stage 5 chronic kidney disease, or end stage renal disease; N18.6 End stage renal disease; I50.22 Chronic systolic (congestive) heart failure; E66.9 Obesity, unspecified; Z99.2 Dependence on renal dialysis; Z68.32 Body mass index [BMI] 32.0-32.9, adult; Z96.653 Presence of artificial knee joint, bilateral; Z79.899 Other long term (current) drug therapy; Z88.0 Allergy status to penicillin; W22.8XXA Striking against or struck by other objects, initial encounter; Y93.89 Activity, other specified; Y92.89 Other specified places as the place of occurrence of the external cause; Y99.8 Other external cause status

== ENCOUNTER → 2021-11-01 | Outpatient (CLI) | payer MEDICARE ==
[2021-11-01 07:48] LABS: ABSOLUTE BASOPHILS 0.1 thou/uL (0.0-0.2); ABSOLUTE EOSINOPHILS 0.1 thou/uL (0.0-0.7); ABSOLUTE LYMPHOCYTES 0.9 thou/uL (0.8-5.3); ABSOLUTE MONOCYTES 0.8 thou/uL (0.0-1.2); EOSINOPHILS 2.3 %; HEMATOCRIT 30.4 % (42.0-52.0); HEMOGLOBIN 9.7 gm/dL (14.0-18.0); LYMPHOCYTES 15.8 %; MCH 33.5 pg (26.0-34.0); MCHC 31.9 g/dL (28.0-37.0); MPV 7.8 fl. (7.2-11.1); NUCLEATED RBCS 0 /100WBC; PLATELET COUNT* 180 thou/uL (150-400); POLYS 67.9 %; RBC 2.89 mil/uL (4.50-6.00); RDW-CV 16.5 % (10.5-14.5); WBC 5.9 thou/uL (4.0-11.0)
[2021-11-01 07:57] LABS: INR 1.1; PROTIME 11.6 Seconds (9.20-11.50)
[2021-11-01 07:59] LABS: ALBUMIN 3.4 g/dL (3.4-5.0); CREATININE 5.6 mg/dL (0.6-1.3); POTASSIUM 4.7 mmol/L (3.5-5.1); TOTAL BILIRUBIN 0.8 mg/dL (<0.1-1.0); TOTAL PROTEIN 6.9 g/dL (6.4-8.2)
== END ==
LOC: M.LAB 10-20 09:00 → M.ULTRA 10-20 10:00 → M.LAB 05:52
PROVIDERS: ATTEND Family Medicine
DX: R18.8 Other ascites (principal)

== ENCOUNTER 2021-11-24 01:26 | Emergency (ER) | payer MEDICARE ==
[~2021-11-24] VITALS: Ht 175.3 cm; Wt 95.3 kg
[2021-11-24 02:20] LABS: ABSOLUTE BASOPHILS 0.1 thou/uL (0.0-0.2); ABSOLUTE EOSINOPHILS 0.1 thou/uL (0.0-0.7); ABSOLUTE LYMPHOCYTES 1.1 thou/uL (0.8-5.3); ABSOLUTE MONOCYTES 0.8 thou/uL (0.0-1.2); ABSOLUTE NEUTROPHILS 3.8 thou/uL (1.6-8.1); BASOPHILS 0.9 %; HEMATOCRIT 31.2 % (42.0-52.0); HEMOGLOBIN 10.2 gm/dL (14.0-18.0); LYMPHOCYTES 18.7 %; MCH 33.2 pg (26.0-34.0); MCHC 32.6 g/dL (28.0-37.0); MCV 101.8 fL (80.0-100.0); MONOCYTES 13.9 %; MPV 7.9 fl. (7.2-11.1); NUCLEATED RBCS 0 /100WBC; PLATELET COUNT* 176 thou/uL (150-400); POLYS 64.5 %; RBC 3.07 mil/uL (4.50-6.00); RDW-CV 15.5 % (10.5-14.5); WBC 5.8 thou/uL (4.0-11.0)
[2021-11-24 02:23] LABS: CALCIUM 8.8 mg/dL (8.5-10.1); CREATININE 4.7 mg/dL (0.6-1.3); POTASSIUM 4.5 mmol/L (3.5-5.1)
[2021-11-24 02:28] LABS: ALBUMIN 3.2 g/dL (3.4-5.0); TOTAL BILIRUBIN 0.5 mg/dL (<0.1-1.0); TOTAL PROTEIN 6.7 g/dL (6.4-8.2)
[2021-11-24] MEDS ORDERED: HYDROCODON-ACE1 EAC7 PO (02:57)
[2021-11-24] MEDS ORDERED: PREDNISONE 10 M10 M1 PO (02:57)
[2021-11-24 03:00] VITALS: BP 118/76
[2021-11-24 04:21] LABS: ESR (SEDRATE) 16 mm/hr (0-20)
== END 2021-11-24 03:00 | disposition home or self-care (01) ==
LOC: M.ERS 01:26
PROVIDERS: Personal Emergency Response Attendant
DX: M70.72 Other bursitis of hip, left hip (principal); E78.5 Hyperlipidemia, unspecified; I13.2 Hypertensive heart and chronic kidney disease with heart failure and with stage 5 chronic kidney disease, or end stage renal disease; N18.6 End stage renal disease; I50.22 Chronic systolic (congestive) heart failure; E66.01 Morbid (severe) obesity due to excess calories; Z79.899 Other long term (current) drug therapy; Z79.891 Long term (current) use of opiate analgesic; Z79.1 Long term (current) use of non-steroidal anti-inflammatories (NSAID); Z88.0 Allergy status to penicillin; Y93.89 Activity, other specified